=== PATIENT | female | born 1950 | race Caucasian/White ===

== ENCOUNTER 2018-02-17 20:32 | Inpatient (IN) | payer MEDICARE ==
[2018-02-17] MEDS ORDERED: Vancomycin(*) 1,500 MG in NS 0.9% 250 ML* 250 ML IVPB ONE (21:02)
[2018-02-17 21:40] LABS: Hematocrit 40 % (35-47); Hemoglobin 13.1 g/dl (12.0-16.0); Mean Corpuscular HGB Conc 33 g/dl (31-36); Mean Corpuscular Hemoglobin 29 pg (27-31); Mean Corpuscular Volume 88 fL (80-97); Mean Platelet Volume 9.6 um3 (7.4-10.4); Platelet Count 147 10^3/ul (150-450); Red Blood Count 4.49 10^6/ul (4.0-5.4); Red Cell Distribution Width 15 % (10.5-15); White Blood Count 21.2 10^3/ul (3.5-10.8)
[2018-02-17 21:55] LABS: EGFR Non-African American 78.5 (>60)
[2018-02-17 22:14] LABS: ABS Basophils 0 10^3/ul (0-0.2); ABS Eosinophils 0 10^3/ul (0-0.6); ABS Lymphocytes 0.4 10^3/ul (1.0-4.8); ABS Monocytes 0.5 10^3/ul (0-0.8); ABS Neutrophils 20.3 10^3/ul (1.5-7.7); ABS Nucleated RBC 0 10^3/ul; Eosinophil % 0 % (0-6); Nucleated Red Blood Cells % 0
--- NOTE | 2018-02-17 22:29 | ED ---
Dinesh Gastelum Sixian, scribed for Nathan Parham MD on 02/17/18 at 2103 . Complex/Multi-Sys Presentation - HPI Summary HPI Summary: This patient is a 68 year old MF BIBA to ED with a chief complaint of falling backwards since 1730 today. The patient rates the pain 4/10 in severity. Symptoms aggravated and alleviated by nothing. Patient reports fever, R hip and R knee arthritis, lumps on the legs. Patient denies hitting her head, LOC. The pt tripped over objects in the bathroom and her back hit a mop. She landed on her back. Pt also states she had erythema on her right leg since the Friday before . Pt states 3 weeks after this, she was diagnosed with cellulitis and was on 2 different antibiotics. Pt states it cleared up after that, but the redness has returned. - History Of Current Complaint Chief Complaint: EDExtremityLower Time Seen by Provider: 02/17/18 20:48 Hx Obtained From: Patient Onset/Duration: Sudden Onset Severity Currently: Moderate - 4/10 Aggravating Factor(s): nothing Alleviating Factor(s): nothing Associated Signs And Symptoms: Positive: Other - Patient reports fever, R hip and R knee arthritis, lumps on the legs. Patient denies hitting her head, LOC. - Allergies/Home Medications Allergies/Adverse Reactions: Allergies Allergy/AdvReac Type Severity Reaction Status Date / Time levofloxacin [From Levaquin] Allergy See Comment Verified 02/17/18 22:28 Home Medications: Home Medications Acetaminophen TAB* [Tylenol TAB*] 650 mg PO Q4H PRN 02/17/18 [History Confirmed 02/17/18] Albuterol HFA INHALER* [Ventolin HFA Inhaler*] 2 puff INH Q6H PRN 02/17/18 [ History Confirmed 02/17/18] Ascorbic Acid TAB* [Vitamin C TAB*] 500 mg PO DAILY 02/17/18 [History Confirmed 02/17/18] Aspirin EC TAB* [Ecotrin EC Low Dose 81 MG*] 81 mg PO DAILY 02/17/18 [History Confirmed 02/17/18] Azelastine 0.15% NASAL(NF) [Astepro 0.15% NASAL (NF)] 1 spray BOTH NARES DAILY 02/17/18 [History Confirmed 02/17/18] Calcium/Magnesium/Zinc [Calcium/Magnesium/Zinc] 1 tab PO DAILY 02/17/18 [ History Confirmed 02/17/18] Cholecalciferol TAB* [Vitamin D TAB*] 2,000 units PO DAILY 02/17/18 [History Confirmed 02/17/18] Fluocinonide 0.05% CREAM(NF) 1 applic TOPICAL BID 02/17/18 [History Confirmed ] Fluticasone NASAL SPRAY 50MCG* [Flonase NASAL SPRAY 50MCG*] 1 spray BOTH NARES DAILY 02/17/18 [History Confirmed 02/17/18] Furosemide TAB* [Lasix TAB*] 40 mg PO DAILY 02/17/18 [History Confirmed 02/17/18 ] Hydrochlorothiazide TAB* [Hydrodiuril TAB*] 25 mg PO DAILY 02/17/18 [History Confirmed 02/17/18] LoraTADine TAB(NF) [Claritin 10 MG TAB(NF)] 10 mg PO DAILY 02/17/18 [History Confirmed 02/17/18] Losartan TAB* [Cozaar TAB*] 50 mg PO DAILY 02/17/18 [History Confirmed 02/17/18] Mometasone 220 MCG MDI * [Asmanex 220 MCG MDI *] 2 puff INH DAILY 02/17/18 [ History Confirmed 02/17/18] Montelukast Sodium TAB* [Singulair TAB*] 10 mg PO DAILY 02/17/18 [History Confirmed 02/17/18] Omeprazole CAP* [Prilosec CAP* 20 MG] 40 mg PO QAM 02/17/18 [History Confirmed 02/17/18] Potassium Chlor TAB* [Klor Con ER TAB*] 10 meq PO DAILY 02/17/18 [History Confirmed 02/17/18] medroxyPROGESTERone TAB* [Provera TAB*] 10 mg PO BID 02/17/18 [History Confirmed 02/17/18] traMADol TAB* [Ultram*] 50 - 100 mg PO Q6HR PRN 02/17/18 [History Confirmed ] PMH/Surg Hx/FS Hx/Imm Hx Endocrine/Hematology History: Reports: Hx Diabetes - II Cardiovascular History: Reports: Hx Hypertension Respiratory History: Reports: Hx Asthma GI History: Reports: Hx Ulcer - gerd - Cancer History Hx Chemotherapy: No Hx Radiation Therapy: No - Surgical History Surgery Procedure, Year, and Place: umbilical hernia repair Infectious Disease History: No Infectious Disease History: Reports: Hx Shingles Denies: History Other Infectious Disease, Traveled Outside the [place] in Last 30 Days - Family History Known Family History: Positive: Unknown - pt is asleep - Social History Alcohol Use: Rare Substance Use Type: Reports: None Smoking Status (MU): Never Smoked Tobacco Review of Systems Positive: Fever Neurological: Negative - LOC, hitting her head All Other Systems Reviewed And Are Negative: Yes Physical Exam - Summary Physical Exam Summary: Appearance: Well-appearing, Well-nourished, lying in bed comfortably Skin: Warm, dry, no obvious rash Eyes: sclera anicteric, no conjunctiva pallor ENT: mucous membranes moist, pharynx appears normal Neck: Supple, nontender Respiratory: Clear to auscultation, no signs of respiratory distress Cardiovascular: Normal S1, S2. No murmurs. Normal distal pulses in tibial and radial bilaterally. Abdomen: Soft, nontender, normal active bowel sounds present Musculoskeletal: Normal, Strength/ROM Intact. Redness, warm, extending up to knee on R leg. Adenopathy in groin area Neurological: A&Ox3, awake and alert, mentation is normal, speech is fluent and appropriate Psychiatric: affect is normal, does not appear anxious or depressed Triage Information Reviewed: Yes Vital Signs On Initial Exam: Initial Vitals Temp Pulse Resp BP Pulse Ox 100.5 F 82 16 150/80 97 02/17/18 20:35 02/17/18 20:35 02/17/18 20:35 02/17/18 20:35 02/17/18 20:35 Vital Signs Reviewed: Yes Diagnostics - Vital Signs Vital Signs Temp Pulse Resp BP Pulse Ox 02/17/18 20:35 100.5 F 82 16 150/80 97 - Laboratory Lab Results: Lab Results 02/17/18 02/17/18 02/17/18 Range/Units 21:33 21:33 21:33 WBC 21.2 H (3.5-10.8) 10^3/ul RBC 4.49 (4.0-5.4) 10^6/ul Hgb 13.1 (12.0-16.0) g/dl Hct 40 (35-47) % MCV 88 (80-97) fL MCH 29 (27-31) pg MCHC 33 (31-36) g/dl RDW 15 (10.5-15) % Plt Count 147 L (150-450) 10^3/ul MPV 9.6 (7.4-10.4) um3 Neut % (Auto) 95.5 H (38-83) % Lymph % (Auto) 2.0 L (25-47) % [place] % (Auto) 2.3 (0-7) % Eos % (Auto) 0 (0-6) % Baso % (Auto) 0.2 (0-2) % Absolute Neuts (auto) 20.3 H (1.5-7.7) 10^3/ul Absolute Lymphs (auto) 0.4 L (1.0-4.8) 10^3/ul Absolute Monos (auto) 0.5 (0-0.8) 10^3/ul Absolute Eos (auto) 0 (0-0.6) 10^3/ul Absolute Basos (auto) 0 (0-0.2) 10^3/ul Absolute Nucleated RBC 0 10^3/ul Nucleated RBC % 0 Sodium 135 L (139-145) mmol/L Potassium 3.8 (3.5-5.0) mmol/L Chloride 101 (101-111) mmol/L Carbon Dioxide 27 (22-32) mmol/L Anion Gap 7 (2-11) mmol/L BUN 21 (6-24) mg/dL Creatinine 0.74 (0.51-0.95) mg/dL Est GFR ( Amer) 101.0 (>60) Est GFR (Non-Af Amer) 78.5 (>60) BUN/Creatinine Ratio 28.4 H (8-20) Glucose 156 H (70-100) mg/dL Lactic Acid 1.5 (0.5-2.0) mmol/L Calcium 9.0 (8.6-10.3) mg/dL Total Bilirubin 0.70 (0.2-1.0) mg/dL AST 12 L (13-39) U/L ALT 8 (7-52) U/L Alkaline Phosphatase 46 (34-104) U/L Total Protein 6.7 (6.4-8.9) g/dL Albumin 3.8 (3.2-5.2) g/dL Globulin 2.9 (2-4) g/dL Albumin/Globulin Ratio 1.3 (1-3) Result Diagrams: 02/17/18 21:33 02/17/18 21:33 Lab Statement: Any lab studies that have been ordered have been reviewed, and results considered in the medical decision making process. Complex Multi-Symp Course/Dx - Diagnoses Differential Diagnoses/HQI/PQRI: Sepsis Provider Diagnoses: Cellulitis of right leg, Fall against object Is Visit Related: No - Physician Notifications Discussed Care Of Patient With: Nelida Escobdeo Time Discussed With Above Provider: 22:20 Instructed by Provider To: Admit As Inpatient Discharge - Sign-Out/Discharge Documenting (check all that apply): Discharge/Admit/Transfer - Discharge Plan Condition: Guarded Disposition: ADMITTED TO [facility] Referrals: Dave Reed MD [Primary Care Provider] - Additional Instructions: RETURN TO THE EMERGENCY DEPARTMENT FOR CHANGING OR WORSENING SYMPTOMS. - Billing Disposition and Condition Condition: GUARDED Disposition: [facility]P-[facility] The documentation as recorded by the Dinesh dc Sixian accurately reflects the service I personally performed and the decisions made by Prasad jones Richard, MD.
[2018-02-17] MEDS ORDERED: traMADol TAB* 50 MG PO PRN (22:54)
[2018-02-17] MEDS ORDERED: NS 0.9% 1000 ML* 1,000 ML IV SCH (23:00)
[2018-02-17] MEDS ORDERED: Losartan TAB* 25 MG PO ONE (23:03)
[2018-02-17] MEDS ORDERED: Dextrose 50% Syringe 50 ML* 25 GM/50 ML SYRINGE IV PUSH PRN (23:10)
[2018-02-18] MEDS: traMADol TAB* 50 MG PO PRN ×2 (01:27→21:42)
[2018-02-18] MEDS: Cetirizine* 10 MG TAB PO SCH ×2 (01:27→21:41)
[2018-02-18] MEDS: Montelukast Sodium TAB* 10 MG PO SCH ×2 (01:27→21:42)
[2018-02-18] MEDS: Aspirin EC TAB* 81 MG TAB.EC PO SCH ×2 (01:27→21:42)
[2018-02-18] MEDS: Acetaminophen TAB* 325 MG PO PRN ×3 (01:28→21:52)
[2018-02-18] MEDS: cefTRIAXone(*) 2 GM in NS 0.9% 100 ML* 100 ML IVPB SCH ×2 (01:29→23:12)
[2018-02-18] MEDS: Fluticasone NASAL SPRAY 50MCG* 16 gm SPRAY BTL BOTH NARES SCH ×2 (02:05→21:53)
--- NOTE | 2018-02-18 03:07 | HP ---
CC: Dr. Reed* HISTORY AND PHYSICAL: DATE OF ADMISSION: 02/17/18 PRIMARY CARE PROVIDER: Dr. Reed. CHIEF COMPLAINT: Fall and right lower extremity cellulitis. HISTORY OF PRESENT ILLNESS: Ms. Bowers is a 68-year-old super morbidly obese middle-aged female with a history of hypertension, type 2 diabetes, and lower extremity lymphedema, who presents to the emergency room after sustaining a fall on the day of admission. The patient states that today was a bad day in terms of her ambulation. She states that she had severe osteoarthritis of her right hip and knee. She states some days her mobility is better than others and today happened to be a bad one. The patient walked to the bathroom and was trying to turn around, was having a difficult time doing so. An aide that had cleaned for her left her mop and water bucket in a different spot than where it was supposed to be and she tripped over this. States that she got tangled and fell to the floor. She was unable to get up on her own. She ultimately called EMS and was brought to the emergency room for evaluation. EMS noted that the patient's right lower extremity was markedly erythematous and hot. The patient states she cannot see anything out of her right eye, but generally does not see her lower extremities due to her obesity. She states that she may have had some fevers and chills over the last few days, but she is not completely sure. She states she has chronic pain in the right lower extremity, but the pain has not been any worse than usual. PAST MEDICAL HISTORY: 1. Hypertension. 2. Morbid obesity. 3. Diabetes. 4. Allergic rhinitis. 5. Asthma. 6. Osteoarthritis. 7. Lymphedema, utilized a compression pump. PAST SURGICAL HISTORY: Umbilical hernia repair. MEDICATIONS: 1. Tramadol 50 to 100 mg p.o. q.6 hours p.r.n. pain. 2. Fluocinonide cream apply topically twice daily. 3. Tylenol 650 mg p.o. q.4 hours p.r.n. pain. 4. Potassium chloride 10 mEq p.o. daily. 5. Vitamin D 2000 units p.o. daily. 6. Aspirin 81 mg p.o. daily. 7. Vitamin C 500 mg p.o. daily. 8. Provera 10 mg p.o. b.i.d. 9. Loratadine 10 mg p.o. daily. 10. Calcium, magnesium, zinc 1 tab p.o. daily. 11. Omeprazole 40 mg p.o. daily. 12. Asmanex 2 puffs inhaled daily. 13. Albuterol 2 puffs inhaled q.6 hours p.r.n. shortness of breath. 14. Flonase 1 squirt to both nostrils daily. 15. Astepro 1 spray to both nostrils daily. 16. Singulair 10 mg p.o. daily. 17. Losartan 50 mg p.o. daily. 18. Hydrochlorothiazide 25 mg p.o. daily. 19. Lasix 40 mg p.o. daily. ALLERGIES: LEVAQUIN, which caused Achilles tendonitis. FAMILY HISTORY: Mom of ovarian cancer. She also had coronary disease. Dad of an MS. SOCIAL HISTORY: The patient is a lifelong nonsmoker. She drinks alcohol rarely. She is a retired teacher. She is not . She has no children. She indicates that her sister, Sasha, phone number [phone], is her healthcare proxy. REVIEW OF SYSTEMS: A complete 11-system review of systems is obtained. Pertinent positives and negatives are as per HPI and otherwise negative. PHYSICAL EXAMINATION GENERAL: The patient is a well-developed, super morbidly obese middle-aged female, seen lying flat on the stretcher, in no acute distress. VITAL SIGNS: Blood pressure 174/80, pulse 86, respirations 21, temperature 100.5, O2 sat 98% on room air. HEENT: Pupils are equal and round. Extraocular muscles are intact. Oropharynx is clear. Oral mucosa is moist. NECK: There is no submandibular, cervical, or subclavicular adenopathy. Thyroid is not enlarged. No thyroid nodules are noted. PULMONARY: Lungs are clear to auscultation anteriorly bilaterally. CARDIAC: Normal S1, S2. Regular rate and rhythm. I do not appreciate any murmurs. There is significant lower extremity edema/lymphedema bilaterally. ABDOMEN: Bowel sounds are present. Abdomen is soft, obese, nontender, nondistended. MUSCULOSKELETAL: The patient moves upper extremities symmetrically. She has difficult time moving her lower extremities. SKIN: Warm and dry. There are no rashes. The patient is hirsute. The right lower extremity is beefy red over the lower leg and tracking up over the anterior and medial thigh, this is very hot to touch. NEUROLOGIC: Cranial nerves II through XII are grossly intact. Sensation is intact to light touch throughout. Strength is 5/5 and symmetric in both upper and lower extremities bilaterally. PSYCH: The patient is alert. She is oriented to x3. Affect appears appropriate. LABORATORY DATA: WBC 21.2, hemoglobin 13.1, hematocrit 40, platelets 147. Sodium 135, potassium 3.8, chloride 101, CO2 27, BUN 21, creatinine 0.74, glucose 156, lactic acid 1.5, calcium 9.0, bilirubin 0.7, AST 12, ALT 8, alk phos 46, albumin 3.8. ASSESSMENT AND PLAN: Ms. Bowers is a 68-year-old super morbidly obese female who has a history of hypertension and type 2 diabetes as well as chronic lower extremity lymphedema, who presents to the emergency room with complaints of fall and inability to get up and was also found to have a right lower extremity cellulitis. 1. Fall. The patient will need physical therapy ordered. I questioned whether or not she will be able to manage at home. She may require subacute rehab. 2. Right lower extremity cellulitis with associated sepsis. The patient is septic based on sepsis 2 criteria with fever and leukocytosis. The patient had 2 L of normal saline bolused in the emergency room. I will not continue bolusing fluid as she would receive several liters and already has issues with chronic lower extremity edema. She will continue on normal saline at 100 mL/ hour after finishing the boluses in the emergency room. Her vital signs will be monitored. The patient received vancomycin in the emergency room; however, she does not have any risk factors for MRSA. The patient will be changed over to ceftriaxone 2 g IV daily. I have chosen 2 g dose given her weight. I suspect she will need a few days of IV antibiotics and could be converted over to oral. 3. Hypertension. The patient's blood pressure is still quite elevated. She states typically it runs in the 130s systolically. At this point, I will add losartan 25 mg p.o. q.h.s. We will monitor her blood pressure. This will be in addition to her usual dose of losartan 50 mg in the morning. I am going to hold her hydrochlorothiazide for now, but this can likely be resumed prior to discharge. 4. Diabetes. The patient is not on any medications for this. Hemoglobin A1c has been ordered and the results of this are pending. She will have a lispro sliding scale. 5. Osteoarthritis. We will continue p.r.n. Tylenol and tramadol. 6. DVT prophylaxis. According to the Adult Thrombosis Prophylaxis Risk Factor Assessment Guide, the patient has a total risk factor score of 5, making her the highest risk. She will be placed on heparin 5000 units subcutaneous q.8 hours. 7. Code status is full. TIME SPENT: 65 minutes were spent admitting this patient. [id number]/[facility] #: [id number] FELIZ
[2018-02-18] MEDS: Heparin VIAL(*) 5000 UNITS/ML VIAL (FIVE THOUSAND) SUBCUT SCH ×3 (05:05→21:42)
[2018-02-18 05:40] LABS: ABS Basophils 0 10^3/ul (0-0.2); ABS Eosinophils 0 10^3/ul (0-0.6); ABS Lymphocytes 1.1 10^3/ul (1.0-4.8); ABS Monocytes 0.5 10^3/ul (0-0.8); ABS Neutrophils 18.7 10^3/ul (1.5-7.7); ABS Nucleated RBC 0 10^3/ul; Eosinophil % 0 % (0-6); Hematocrit 36 % (35-47); Hemoglobin 12.2 g/dl (12.0-16.0); Lymphocyte % 5.4 % (25-47); Mean Corpuscular HGB Conc 34 g/dl (31-36); Mean Corpuscular Hemoglobin 30 pg (27-31); Mean Corpuscular Volume 87 fL (80-97); Mean Platelet Volume 9.1 um3 (7.4-10.4); Nucleated Red Blood Cells % 0; Platelet Count 114 10^3/ul (150-450); Red Blood Count 4.08 10^6/ul (4.0-5.4); Red Cell Distribution Width 14 % (10.5-15); White Blood Count 20.3 10^3/ul (3.5-10.8)
[2018-02-18] MEDS: Mometasone 220 MCG MDI INH SCH (08:02)
[2018-02-18] MEDS: Omeprazole CAP* 20 MG PO SCH (08:56)
[2018-02-18] MEDS: Insulin LISPRO* 1 UNITS UNIT SUBCUT SCH ×4 (08:56→21:47)
[2018-02-18] MEDS ORDERED: Aspirin EC TAB* 81 MG TAB.EC PO SCH (09:00)
[2018-02-18] MEDS ORDERED: Fluticasone NASAL SPRAY 50MCG* 16 gm SPRAY BTL BOTH NARES SCH (09:00)
[2018-02-18] MEDS ORDERED: Montelukast Sodium TAB* 10 MG PO SCH (09:00)
[2018-02-18] MEDS: Potassium Chlor TAB* 10 MEQ TAB.ER PO SCH (09:50)
[2018-02-18] MEDS: medroxyPROGESTERone TAB* 10 MG PO SCH ×2 (09:51→21:41)
[2018-02-18] MEDS: Cholecalciferol TAB* 1000 UNITS PO SCH (09:51)
[2018-02-18] MEDS: Ascorbic Acid TAB* 500 MG PO SCH (09:51)
[2018-02-18] MEDS: Losartan TAB* 25 MG PO SCH ×2 (09:51→21:42)
[2018-02-18] MEDS: Furosemide TAB* 40 MG PO SCH (09:51)
--- NOTE | 2018-02-18 14:40 | PN ---
Subjective Date of Service: 02/18/18 Interval History: Patient reports she feels a little better today. She states she was feeling well up until yesterday when she felt she had generalized fatigue then fell. She was unaware if the redness of her right leg. She reports possible fevers the last few days but states her house is "so hot" she wouldnt be able to tell. Denies any fevers/chills since admission. No SOB/CP. No N/V/D. Reports good appetite. She reports she ambulates with a walker. Objective Active Medications: Acetaminophen (Tylenol Tab*) 650 mg PO Q4H PRN PRN Reason: PAIN Last Admin: 02/18/18 09:49 Dose: 650 mg Albuterol (Ventolin Hfa Inhaler*) 2 puff INH Q6H PRN PRN Reason: SOB/WHEEZING Ascorbic Acid (Vitamin C Tab*) 500 mg PO DAILY [facility] Last Admin: 02/18/18 09:51 Dose: 500 mg Aspirin (Aspirin Ec Tab*) 81 mg PO BEDTIME [facility] Last Admin: 02/18/18 01:27 Dose: 81 mg Cetirizine HCl (Zyrtec*) 10 mg PO BEDTIME [facility] Last Admin: 02/18/18 01:27 Dose: 10 mg Cholecalciferol (Vitamin D Tab*) 2,000 units PO DAILY [facility] Last Admin: 02/18/18 09:51 Dose: 2,000 units Dextrose (D50w Syringe 50 Ml*) 12.5 gm IV PUSH .FOR FS < 60 - SS PRN PRN Reason: FS < 60 Fluticasone Propionate (Flonase Nasal [place] 50mcg*) 1 spray BOTH NARES BEDTIME [facility] Last Admin: 02/18/18 02:05 Dose: 1 spray Furosemide (Lasix Tab*) 40 mg PO DAILY [facility] Last Admin: 02/18/18 09:51 Dose: 40 mg Heparin Sodium (Porcine) (Heparin Vial(*)) 5,000 units SUBCUT Q8HR [facility] Last Admin: 02/18/18 13:27 Dose: 5,000 units Ceftriaxone Sodium 2 gm/ (Sodium Chloride) 100 mls @ 200 mls/hr IVPB Q24H [facility] Last Admin: 02/18/18 01:29 Dose: 200 mls/hr Ibuprofen (Motrin Tab*) 400 mg PO Q6H PRN PRN Reason: PAIN - MILD TO MODERATE Insulin Human Lispro (Humalog*) 0 units SUBCUT ACHS [facility] PRN Reason: Protocol Last Admin: 02/18/18 12:55 Dose: 3 units Losartan Potassium (Cozaar Tab*) 50 mg PO DAILY [facility] Last Admin: 02/18/18 09:51 Dose: 50 mg Losartan Potassium (Cozaar Tab*) 25 mg PO BEDTIME [facility] Medroxyprogesterone Acetate (Provera Tab*) 10 mg PO BID [facility] Last Admin: 02/18/18 09:51 Dose: 10 mg Mometasone Furoate (Asmanex 220 Mcg Mdi *) 2 puff INH DAILY [facility] PRN Reason: Protocol Last Admin: 02/18/18 08:02 Dose: 2 puff Montelukast Sodium (Singulair Tab*) 10 mg PO BEDTIME [facility] Last Admin: 02/18/18 01:27 Dose: 10 mg Omeprazole (Prilosec Cap*) 40 mg PO QAM [facility] Last Admin: 02/18/18 08:56 Dose: 40 mg Potassium Chloride (Klor Con Er Tab*) 10 meq PO DAILY [facility] Last Admin: 02/18/18 09:50 Dose: 10 meq Tramadol HCl (Ultram*) 100 mg PO Q6HR PRN PRN Reason: PAIN Last Admin: 02/18/18 01:27 Dose: 100 mg Vital Signs - 8 hr 02/18/18 02/18/18 02/18/18 07:50 10:54 10:55 Temperature 98.5 F Pulse Rate 75 Respiratory 22 20 Rate Blood Pressure 143/45 (mmHg) O2 Sat by Pulse 98 98 Oximetry 02/18/18 11:15 Temperature 99.2 F Pulse Rate 73 Respiratory 20 Rate Blood Pressure 153/68 (mmHg) O2 Sat by Pulse 95 Oximetry Oxygen Devices in Use Now: None Appearance: morbidly obese female sitting up in bed A+O x3 in NAD Eyes: No Scleral Icterus, PERRLA Ears/Nose/Mouth/Throat: NL Teeth, Lips, Gums, Mucous Membranes Moist Neck: NL Appearance and Movements; NL JVP Respiratory: Symmetrical Chest Expansion and Respiratory Effort, Clear to Auscultation Cardiovascular: NL Sounds; No Murmurs; No JVD, RRR Abdominal: - - obese, soft, unable to ausculate BS d/t obesity Skin: - - bilateral LE lymphedema. Right Lower extremity has diffuse generalized erythema that spreads to inner thigh Neurological: Alert and Oriented x 3, NL Sensation Lines/Tubes/Other Access: Clean, Dry and Intact Peripheral IV Nutrition: Taking PO's Result Diagrams: 02/18/18 05:25 02/17/18 21:33 Additional Lab and Data: Lab Results 02/17/18 02/17/18 02/17/18 Range/Units 21:33 21:33 21:33 WBC 21.2 H (3.5-10.8) 10^3/ul RBC 4.49 (4.0-5.4) 10^6/ul Hgb 13.1 (12.0-16.0) g/dl Hct 40 (35-47) % MCV 88 (80-97) fL MCH 29 (27-31) pg MCHC 33 (31-36) g/dl RDW 15 (10.5-15) % Plt Count 147 L (150-450) 10^3/ul MPV 9.6 (7.4-10.4) um3 Neut % (Auto) 95.5 H (38-83) % Lymph % (Auto) 2.0 L (25-47) % [place] % (Auto) 2.3 (0-7) % Eos % (Auto) 0 (0-6) % Baso % (Auto) 0.2 (0-2) % Absolute Neuts (auto) 20.3 H (1.5-7.7) 10^3/ul Absolute Lymphs (auto) 0.4 L (1.0-4.8) 10^3/ul Absolute Monos (auto) 0.5 (0-0.8) 10^3/ul Absolute Eos (auto) 0 (0-0.6) 10^3/ul Absolute Basos (auto) 0 (0-0.2) 10^3/ul Absolute Nucleated RBC 0 10^3/ul Nucleated RBC % 0 Sodium 135 L (139-145) mmol/L Potassium 3.8 (3.5-5.0) mmol/L Chloride 101 (101-111) mmol/L Carbon Dioxide 27 (22-32) mmol/L Anion Gap 7 (2-11) mmol/L BUN 21 (6-24) mg/dL Creatinine 0.74 (0.51-0.95) mg/dL Est GFR ( Amer) 101.0 (>60) Est GFR (Non-Af Amer) 78.5 (>60) BUN/Creatinine Ratio 28.4 H (8-20) Glucose 156 H (70-100) mg/dL Lactic Acid 1.5 (0.5-2.0) mmol/L Calcium 9.0 (8.6-10.3) mg/dL Total Bilirubin 0.70 (0.2-1.0) mg/dL AST 12 L (13-39) U/L ALT 8 (7-52) U/L Alkaline Phosphatase 46 (34-104) U/L Total Protein 6.7 (6.4-8.9) g/dL Albumin 3.8 (3.2-5.2) g/dL Globulin 2.9 (2-4) g/dL Albumin/Globulin Ratio 1.3 (1-3) Assess/Plan/Problems-Billing Assessment: 68 yo female with a PMH of morbid obesity, lyphedema, asthma, hypertension, diabetes who presented to the emergency room after she had a fall at home and couldn't get up, found to have a right lower extremity cellulitis meeting sepsis criteria - Patient Problems (1) Sepsis due to cellulitis Comment: - Sepsis Resolving. Afebrile. Leukocytosis about the same. - Met sepsis criteria with leukocytosis and fever. She received 2L NS bolus in ER and given a dose on Vanco. Continue Ceftriaxone only. - Check Labs in am. - Blood cx pending (2) Fall Comment: - No injuries noted - PT/OT ordered (3) HTN (hypertension) Comment: - continue home dose lasix and losartan (4) Diabetes 1.5, managed as type 2 Comment: - FSBG with lispro SS - may be able to DC this if FSBG continues to be well controlled d/t HbA1C of 5.2% (5) DVT prophylaxis Comment: HSQ (6) Morbid obesity with BMI of 60.0-69.9, adult Comment: - support bariatric needs Status and Disposition: inpatient with fall, sepsis and cellulitis. PT/OT eval pending
[2018-02-18] MEDS ORDERED: LoraTADine TAB(NF) 10 MG TAB (AUTOSUB to CETIRIZINE) PO SCH (21:00)
[2018-02-19] MEDS: Albuterol HFA INHALER* 8 gm MDI INH PRN (05:25)
[2018-02-19] MEDS: Heparin VIAL(*) 5000 UNITS/ML VIAL (FIVE THOUSAND) SUBCUT SCH ×3 (05:26→22:48)
[2018-02-19 06:26] LABS: Hematocrit 35 % (35-47); Hemoglobin 11.9 g/dl (12.0-16.0); Mean Corpuscular HGB Conc 34 g/dl (31-36); Mean Corpuscular Hemoglobin 30 pg (27-31); Mean Corpuscular Volume 87 fL (80-97); Red Blood Count 4.03 10^6/ul (4.0-5.4); Red Cell Distribution Width 14 % (10.5-15); White Blood Count 10.8 10^3/ul (3.5-10.8)
[2018-02-19 06:35] LABS: EGFR Non-African American 108.3 (>60)
[2018-02-19 07:04] LABS: ABS Basophils 0.1 10^3/ul (0-0.2); ABS Eosinophils 0.1 10^3/ul (0-0.6); ABS Lymphocytes 1.2 10^3/ul (1.0-4.8); ABS Monocytes 0.6 10^3/ul (0-0.8); ABS Neutrophils 8.9 10^3/ul (1.5-7.7); ABS Nucleated RBC 0 10^3/ul; Eosinophil % 0.7 % (0-6); Lymphocyte % 11.4 % (25-47); Mean Platelet Volume 9.2 um3 (7.4-10.4); Nucleated Red Blood Cells % 0; Platelet Count 95 10^3/ul (150-450)
[2018-02-19] MEDS: Omeprazole CAP* 20 MG PO SCH (08:02)
[2018-02-19] MEDS: Mometasone 220 MCG MDI INH SCH ×2 (08:36→21:17)
[2018-02-19] MEDS: Insulin LISPRO* 1 UNITS UNIT SUBCUT SCH ×4 (09:06→21:25)
[2018-02-19] MEDS: Furosemide TAB* 40 MG PO SCH (10:59)
[2018-02-19] MEDS: Losartan TAB* 25 MG PO SCH ×2 (10:59→21:15)
[2018-02-19] MEDS: Potassium Chlor TAB* 10 MEQ TAB.ER PO SCH (10:59)
[2018-02-19] MEDS: Ascorbic Acid TAB* 500 MG PO SCH (10:59)
[2018-02-19] MEDS: Cholecalciferol TAB* 1000 UNITS PO SCH (10:59)
[2018-02-19] MEDS: medroxyPROGESTERone TAB* 10 MG PO SCH ×2 (11:00→21:14)
[2018-02-19] MEDS: Ibuprofen TAB* 400 MG PO PRN (11:08)
--- NOTE | 2018-02-19 11:40 | PN ---
Subjective Date of Service: 02/19/18 Interval History: Patient seen and examined. No acute overnight events. Had PT eval, states it was difficult for her to get up (2 person max assist). Aware she needs rehab. Denies fever or chills, no SOB, no chest pain, no fatigue or headache. Tolerating PO. Objective Active Medications: Acetaminophen (Tylenol Tab*) 650 mg PO Q4H PRN PRN Reason: PAIN Last Admin: 02/18/18 21:52 Dose: 650 mg Albuterol (Ventolin Hfa Inhaler*) 2 puff INH Q6H PRN PRN Reason: SOB/WHEEZING Last Admin: 02/19/18 05:25 Dose: 2 puff Ascorbic Acid (Vitamin C Tab*) 500 mg PO DAILY [facility] Last Admin: 02/19/18 10:59 Dose: 500 mg Aspirin (Aspirin Ec Tab*) 81 mg PO BEDTIME [facility] Last Admin: 02/18/18 21:42 Dose: 81 mg Cetirizine HCl (Zyrtec*) 10 mg PO BEDTIME [facility] Last Admin: 02/18/18 21:41 Dose: 10 mg Cholecalciferol (Vitamin D Tab*) 2,000 units PO DAILY [facility] Last Admin: 02/19/18 10:59 Dose: 2,000 units Dextrose (D50w Syringe 50 Ml*) 12.5 gm IV PUSH .FOR FS < 60 - SS PRN PRN Reason: FS < 60 Fluticasone Propionate (Flonase Nasal [place] 50mcg*) 1 spray BOTH NARES BEDTIME [facility] Last Admin: 02/18/18 21:53 Dose: 1 spray Furosemide (Lasix Tab*) 40 mg PO DAILY [facility] Last Admin: 02/19/18 10:59 Dose: 40 mg Heparin Sodium (Porcine) (Heparin Vial(*)) 5,000 units SUBCUT Q8HR [facility] Last Admin: 02/19/18 05:26 Dose: 5,000 units Ceftriaxone Sodium 2 gm/ (Sodium Chloride) 100 mls @ 200 mls/hr IVPB Q24H [facility] Last Admin: 02/18/18 23:12 Dose: 200 mls/hr Ibuprofen (Motrin Tab*) 400 mg PO Q6H PRN PRN Reason: PAIN - MILD TO MODERATE Last Admin: 02/19/18 11:08 Dose: 400 mg Insulin Human Lispro (Humalog*) 0 units SUBCUT ACHS [facility] PRN Reason: Protocol Last Admin: 02/19/18 09:06 Dose: Not Given Latanoprost (Xalatan 0.005%*) 1 drop RIGHT EYE BEDTIME [facility] Losartan Potassium (Cozaar Tab*) 50 mg PO DAILY [facility] Last Admin: 02/19/18 10:59 Dose: 50 mg Losartan Potassium (Cozaar Tab*) 25 mg PO BEDTIME [facility] Last Admin: 02/18/18 21:42 Dose: 25 mg Medroxyprogesterone Acetate (Provera Tab*) 10 mg PO BID [facility] Last Admin: 02/19/18 11:00 Dose: 10 mg Mometasone Furoate (Asmanex 220 Mcg Mdi *) 2 puff INH BEDTIME [facility] PRN Reason: Protocol Montelukast Sodium (Singulair Tab*) 10 mg PO BEDTIME [facility] Last Admin: 02/18/18 21:42 Dose: 10 mg Omeprazole (Prilosec Cap*) 40 mg PO QAM [facility] Last Admin: 02/19/18 08:02 Dose: 40 mg Potassium Chloride (Klor Con Er Tab*) 10 meq PO DAILY [facility] Last Admin: 02/19/18 10:59 Dose: 10 meq Tramadol HCl (Ultram*) 100 mg PO Q6HR PRN PRN Reason: PAIN Last Admin: 02/18/18 21:42 Dose: 100 mg Vital Signs - 8 hr 02/19/18 02/19/18 07:41 08:17 Temperature 99.1 F Pulse Rate 65 Respiratory 18 18 Rate Blood Pressure 159/66 (mmHg) O2 Sat by Pulse 98 98 Oximetry Oxygen Devices in Use Now: None Appearance: Alert, NAD Eyes: PERRLA Ears/Nose/Mouth/Throat: Mucous Membranes Moist Neck: NL Appearance and Movements; NL JVP, Trachea Midline Respiratory: Symmetrical Chest Expansion and Respiratory Effort, Clear to Auscultation Cardiovascular: NL Sounds; No Murmurs; No JVD, RRR Abdominal: NL Sounds; No Tenderness; No Distention Extremities: No Clubbing, Cyanosis, - - RLE with significant edema, erythema and warmth Skin: - - portions of LLE appear to be blistered but not open with no exudate Neurological: Alert and Oriented x 3, - - weak LE Nutrition: Taking PO's Result Diagrams: 02/19/18 06:10 02/19/18 06:10 Additional Lab and Data: Lab Results 02/17/18 02/17/18 02/17/18 Range/Units 21:33 21:33 21:33 WBC 21.2 H (3.5-10.8) 10^3/ul RBC 4.49 (4.0-5.4) 10^6/ul Hgb 13.1 (12.0-16.0) g/dl Hct 40 (35-47) % MCV 88 (80-97) fL MCH 29 (27-31) pg MCHC 33 (31-36) g/dl RDW 15 (10.5-15) % Plt Count 147 L (150-450) 10^3/ul MPV 9.6 (7.4-10.4) um3 Neut % (Auto) 95.5 H (38-83) % Lymph % (Auto) 2.0 L (25-47) % [place] % (Auto) 2.3 (0-7) % Eos % (Auto) 0 (0-6) % Baso % (Auto) 0.2 (0-2) % Absolute Neuts (auto) 20.3 H (1.5-7.7) 10^3/ul Absolute Lymphs (auto) 0.4 L (1.0-4.8) 10^3/ul Absolute Monos (auto) 0.5 (0-0.8) 10^3/ul Absolute Eos (auto) 0 (0-0.6) 10^3/ul Absolute Basos (auto) 0 (0-0.2) 10^3/ul Absolute Nucleated RBC 0 10^3/ul Nucleated RBC % 0 Sodium 135 L (139-145) mmol/L Potassium 3.8 (3.5-5.0) mmol/L Chloride 101 (101-111) mmol/L Carbon Dioxide 27 (22-32) mmol/L Anion Gap 7 (2-11) mmol/L BUN 21 (6-24) mg/dL Creatinine 0.74 (0.51-0.95) mg/dL Est GFR ( Amer) 101.0 (>60) Est GFR (Non-Af Amer) 78.5 (>60) BUN/Creatinine Ratio 28.4 H (8-20) Glucose 156 H (70-100) mg/dL Lactic Acid 1.5 (0.5-2.0) mmol/L Calcium 9.0 (8.6-10.3) mg/dL Total Bilirubin 0.70 (0.2-1.0) mg/dL AST 12 L (13-39) U/L ALT 8 (7-52) U/L Alkaline Phosphatase 46 (34-104) U/L Total Protein 6.7 (6.4-8.9) g/dL Albumin 3.8 (3.2-5.2) g/dL Globulin 2.9 (2-4) g/dL Albumin/Globulin Ratio 1.3 (1-3) Assess/Plan/Problems-Billing Assessment: This is a 68 yo female with a PMH of morbid obesity, lymphedema, asthma, hypertension, diabetes who presented to the emergency room after she had a fall at home and couldn't get up, found to have a right lower extremity cellulitis meeting sepsis criteria, currently resolving. - Patient Problems (1) Sepsis due to cellulitis Code(s): L03.90 - CELLULITIS, UNSPECIFIED; A41.9 - SEPSIS, UNSPECIFIED ORGANISM SNOMED Code(s): 18816958 Comment: - Resolving, leukocytosis improving - s/p 2L bolus and 1 gram vanco in ER - Continue Continue Ceftriaxone daily - BP and HR stable, afebrile today - Blood cx pending (2) Diabetes 1.5, managed as type 2 Code(s): E10.9 - TYPE 1 DIABETES MELLITUS WITHOUT COMPLICATIONS SNOMED Code(s) : 265835383 Comment: - FSBG with lispro SS - may be able to DC this if FSBG continues to be well controlled d/t HbA1C of 5.2% (3) Fall Comment: - 3 person assist with PT, KEREN recommended (4) HTN (hypertension) Code(s): I10 - ESSENTIAL (PRIMARY) HYPERTENSION SNOMED Code(s): 00372906 Comment: - Stable on lasix and losartan (5) Morbid obesity with BMI of 60.0-69.9, adult Code(s): E66.01 - MORBID (SEVERE) OBESITY DUE TO EXCESS CALORIES; Z68.44 - BODY MASS INDEX (BMI) 60.0-69.9, ADULT SNOMED Code(s): 893700531 Comment: - support bariatric needs, i.e., appropriate rehab facility at [place] - Nutrition consult (6) DVT prophylaxis Code(s): XUE3223 - SNOMED Code(s): 278913175 Comment: - HSQ Status and Disposition: Remain inpatient on IV atbx and DC to rehab when stable
[2018-02-19] MEDS ORDERED: Potassium Chlor TAB* 20 MEQ TAB.ER PO ONE (18:33)
[2018-02-19] MEDS: Cetirizine* 10 MG TAB PO SCH (21:14)
[2018-02-19] MEDS: Acetaminophen TAB* 325 MG PO PRN (21:15)
[2018-02-19] MEDS: Montelukast Sodium TAB* 10 MG PO SCH (21:15)
[2018-02-19] MEDS: Aspirin EC TAB* 81 MG TAB.EC PO SCH (21:15)
[2018-02-19] MEDS: traMADol TAB* 50 MG PO PRN (21:16)
[2018-02-19] MEDS: Fluticasone NASAL SPRAY 50MCG* 16 gm SPRAY BTL BOTH NARES SCH (21:20)
[2018-02-19] MEDS: Latanoprost 0.005%* 2.5 ml BTL RIGHT EYE SCH (21:20)
[2018-02-19] MEDS: cefTRIAXone(*) 2 GM in NS 0.9% 100 ML* 100 ML IVPB SCH (22:48)
[2018-02-20] MEDS: Heparin VIAL(*) 5000 UNITS/ML VIAL (FIVE THOUSAND) SUBCUT SCH ×3 (05:18→22:19)
[2018-02-20] MEDS: Omeprazole CAP* 20 MG PO SCH (08:18)
[2018-02-20] MEDS ORDERED: Pneumococcal *Vac Polyvalent 0.5 ML VIAL IM ONE (09:00)
[2018-02-20] MEDS: Insulin LISPRO* 1 UNITS UNIT SUBCUT SCH ×4 (09:45→22:20)
[2018-02-20] MEDS: Losartan TAB* 25 MG PO SCH ×2 (09:45→22:19)
[2018-02-20] MEDS: medroxyPROGESTERone TAB* 10 MG PO SCH ×2 (09:45→22:15)
[2018-02-20] MEDS: Furosemide TAB* 40 MG PO SCH (09:46)
[2018-02-20] MEDS: Cholecalciferol TAB* 1000 UNITS PO SCH (09:46)
[2018-02-20] MEDS: Ascorbic Acid TAB* 500 MG PO SCH (09:46)
[2018-02-20] MEDS: Ibuprofen TAB* 400 MG PO PRN (09:46)
[2018-02-20] MEDS: Potassium Chlor TAB* 10 MEQ TAB.ER PO SCH (09:47)
[2018-02-20] MEDS: Albuterol HFA INHALER* 8 gm MDI INH PRN ×2 (10:36→20:09)
--- NOTE | 2018-02-20 10:54 | PN ---
Subjective Date of Service: 02/20/18 Interval History: Patient seen and examined. States no fever or chills, however pain in RLE is increasing and patient is still having difficulty bearing weight. denies SOB, no chest pain, no n/v. Had normal BM today. Objective Active Medications: Acetaminophen (Tylenol Tab*) 650 mg PO Q4H PRN PRN Reason: PAIN Last Admin: 02/19/18 21:15 Dose: 650 mg Albuterol (Ventolin Hfa Inhaler*) 2 puff INH Q6H PRN PRN Reason: SOB/WHEEZING Last Admin: 02/20/18 10:36 Dose: 2 puff Ascorbic Acid (Vitamin C Tab*) 500 mg PO DAILY [facility] Last Admin: 02/20/18 09:46 Dose: 500 mg Aspirin (Aspirin Ec Tab*) 81 mg PO BEDTIME [facility] Last Admin: 02/19/18 21:15 Dose: 81 mg Cetirizine HCl (Zyrtec*) 10 mg PO BEDTIME [facility] Last Admin: 02/19/18 21:14 Dose: 10 mg Cholecalciferol (Vitamin D Tab*) 2,000 units PO DAILY [facility] Last Admin: 02/20/18 09:46 Dose: 2,000 units Dextrose (D50w Syringe 50 Ml*) 12.5 gm IV PUSH .FOR FS < 60 - SS PRN PRN Reason: FS < 60 Fluticasone Propionate (Flonase Nasal [place] 50mcg*) 1 spray BOTH NARES BEDTIME [facility] Last Admin: 02/19/18 21:20 Dose: 1 spray Furosemide (Lasix Tab*) 40 mg PO DAILY [facility] Last Admin: 02/20/18 09:46 Dose: 40 mg Heparin Sodium (Porcine) (Heparin Vial(*)) 5,000 units SUBCUT Q8HR [facility] Last Admin: 02/20/18 05:18 Dose: 5,000 units Piperacillin Sod/Tazobactam (Sod 3.375 gm/ Sodium Chloride) 100 mls @ 200 mls/ hr IVPB ONCE ONE Stop: 02/20/18 11:29 Vancomycin HCl 2,000 mg/ (Sodium Chloride) 500 mls @ 166.667 mls/hr IVPB ONCE ONE PRN Reason: Protocol Stop: 02/20/18 14:29 Ibuprofen (Motrin Tab*) 400 mg PO Q6H PRN PRN Reason: PAIN - MILD TO MODERATE Last Admin: 02/20/18 09:46 Dose: 400 mg Insulin Human Lispro (Humalog*) 0 units SUBCUT ACHS [facility] PRN Reason: Protocol Last Admin: 02/20/18 09:45 Dose: Not Given Latanoprost (Xalatan 0.005%*) 1 drop RIGHT EYE BEDTIME [facility] Last Admin: 02/19/18 21:20 Dose: 1 drop Losartan Potassium (Cozaar Tab*) 50 mg PO DAILY [facility] Last Admin: 02/20/18 09:45 Dose: 50 mg Losartan Potassium (Cozaar Tab*) 25 mg PO BEDTIME [facility] Last Admin: 02/19/18 21:15 Dose: 25 mg Medroxyprogesterone Acetate (Provera Tab*) 10 mg PO BID [facility] Last Admin: 02/20/18 09:45 Dose: 10 mg Mometasone Furoate (Asmanex 220 Mcg Mdi *) 2 puff INH BEDTIME [facility] PRN Reason: Protocol Last Admin: 02/19/18 21:17 Dose: 2 puff Montelukast Sodium (Singulair Tab*) 10 mg PO BEDTIME [facility] Last Admin: 02/19/18 21:15 Dose: 10 mg Omeprazole (Prilosec Cap*) 40 mg PO QAM [facility] Last Admin: 02/20/18 08:18 Dose: 40 mg Pharmacy Consult (Zosyn Per Pharmacy*) 1 note FOLLOW UP .ZOSYN PER PHARMACY [facility] Potassium Chloride (Klor Con Er Tab*) 10 meq PO DAILY [facility] Last Admin: 02/20/18 09:47 Dose: 10 meq Tramadol HCl (Ultram*) 100 mg PO Q6HR PRN PRN Reason: PAIN Last Admin: 02/19/18 21:16 Dose: 100 mg Vital Signs - 8 hr 02/20/18 02/20/18 02/20/18 03:48 07:36 08:00 Temperature 98.4 F 98.6 F Pulse Rate 68 67 Respiratory 18 18 18 Rate Blood Pressure 139/56 166/72 (mmHg) O2 Sat by Pulse 96 98 98 Oximetry Oxygen Devices in Use Now: None Appearance: Alert, NAD Eyes: No Scleral Icterus, PERRLA Ears/Nose/Mouth/Throat: Mucous Membranes Moist Neck: NL Appearance and Movements; NL JVP, Trachea Midline Respiratory: Symmetrical Chest Expansion and Respiratory Effort, Clear to Auscultation, - - diminished bases Cardiovascular: NL Sounds; No Murmurs; No JVD, RRR Abdominal: NL Sounds; No Tenderness; No Distention Extremities: No Clubbing, Cyanosis, - - bilateral LE edema with right worse than left Skin: - - RLE increased erythema, warmth and fluctuance noted to posterior lower calf Neurological: Alert and Oriented x 3 Nutrition: Taking PO's Result Diagrams: 02/19/18 06:10 02/19/18 06:10 Additional Lab and Data: Lab Results 02/17/18 02/17/18 02/17/18 Range/Units 21:33 21:33 21:33 WBC 21.2 H (3.5-10.8) 10^3/ul RBC 4.49 (4.0-5.4) 10^6/ul Hgb 13.1 (12.0-16.0) g/dl Hct 40 (35-47) % MCV 88 (80-97) fL MCH 29 (27-31) pg MCHC 33 (31-36) g/dl RDW 15 (10.5-15) % Plt Count 147 L (150-450) 10^3/ul MPV 9.6 (7.4-10.4) um3 Neut % (Auto) 95.5 H (38-83) % Lymph % (Auto) 2.0 L (25-47) % [place] % (Auto) 2.3 (0-7) % Eos % (Auto) 0 (0-6) % Baso % (Auto) 0.2 (0-2) % Absolute Neuts (auto) 20.3 H (1.5-7.7) 10^3/ul Absolute Lymphs (auto) 0.4 L (1.0-4.8) 10^3/ul Absolute Monos (auto) 0.5 (0-0.8) 10^3/ul Absolute Eos (auto) 0 (0-0.6) 10^3/ul Absolute Basos (auto) 0 (0-0.2) 10^3/ul Absolute Nucleated RBC 0 10^3/ul Nucleated RBC % 0 Sodium 135 L (139-145) mmol/L Potassium 3.8 (3.5-5.0) mmol/L Chloride 101 (101-111) mmol/L Carbon Dioxide 27 (22-32) mmol/L Anion Gap 7 (2-11) mmol/L BUN 21 (6-24) mg/dL Creatinine 0.74 (0.51-0.95) mg/dL Est GFR ( Amer) 101.0 (>60) Est GFR (Non-Af Amer) 78.5 (>60) BUN/Creatinine Ratio 28.4 H (8-20) Glucose 156 H (70-100) mg/dL Lactic Acid 1.5 (0.5-2.0) mmol/L Calcium 9.0 (8.6-10.3) mg/dL Total Bilirubin 0.70 (0.2-1.0) mg/dL AST 12 L (13-39) U/L ALT 8 (7-52) U/L Alkaline Phosphatase 46 (34-104) U/L Total Protein 6.7 (6.4-8.9) g/dL Albumin 3.8 (3.2-5.2) g/dL Globulin 2.9 (2-4) g/dL Albumin/Globulin Ratio 1.3 (1-3) Assess/Plan/Problems-Billing Assessment: This is a 68 yo female with a PMH of morbid obesity, lymphedema, asthma, hypertension, diabetes who presented to the emergency room after she had a fall at home and couldn't get up, found to have a right lower extremity cellulitis meeting sepsis criteria, currently resolving. - Patient Problems (1) Sepsis due to cellulitis Code(s): L03.90 - CELLULITIS, UNSPECIFIED; A41.9 - SEPSIS, UNSPECIFIED ORGANISM SNOMED Code(s): 09066802 Comment: - Sepsis resolved, leukocytosis improving yesterday, pending CBC today - s/p 2L bolus and 1 gram vanco in ER - Afebrile - Concern that erythema worse today as is pain and what appears to be an area of fluctuance, will DC ceftriaxone and trial zosyn and vanco per pharm and send for US to r/o DVT and potential abscess - Blood cx NTD (2) Diabetes 1.5, managed as type 2 Code(s): E10.9 - TYPE 1 DIABETES MELLITUS WITHOUT COMPLICATIONS SNOMED Code(s) : 102222923 Comment: - FSBG with lispro SS - may be able to DC this if FSBG continues to be well controlled d/t HbA1C of 5.2% (3) Fall Comment: - 3 person assist with PT, KEREN recommended (4) HTN (hypertension) Code(s): I10 - ESSENTIAL (PRIMARY) HYPERTENSION SNOMED Code(s): 92647297 Comment: - Stable on lasix and losartan (5) Morbid obesity with BMI of 60.0-69.9, adult Code(s): E66.01 - MORBID (SEVERE) OBESITY DUE TO EXCESS CALORIES; Z68.44 - BODY MASS INDEX (BMI) 60.0-69.9, ADULT SNOMED Code(s): 446230270 Comment: - support bariatric needs, i.e., appropriate rehab facility at [place] - Nutrition consult (6) DVT prophylaxis Code(s): [id number] - SNOMED Code(s): 649380561 Comment: - HSQ Status and Disposition: Remain inpatient for additional atbx therapy and imaging. Has offer at [facility] when stable for discharge.
[2018-02-20] MEDS ORDERED: Zosyn per Pharmacy* NOTE FOLLOW UP SCH (11:00)
[2018-02-20] MEDS ORDERED: Piperacillin/Tazobac ADVAN(*) 3.375 GM in NS 0.9% 100 ML* 100 ML IVPB ONE (11:00)
[2018-02-20] MEDS ORDERED: Vancomycin(*) 2,000 MG in NS 0.9% 500 ML* 500 ML IVPB ONE (11:30)
--- NOTE | 2018-02-20 15:21 | RAD ---
HISTORY: Pain and edema COMPARISONS: None relevant TECHNIQUE: Multiple transverse and longitudinal ultrasound images were obtained of the right lower extremity from the level of the common femoral vein inferiorly through to the infrapopliteal veins using grayscale, color Doppler, and spectral Doppler imaging with and without compression and with augmentation. Comparison images were obtained of the contralateral common femoral vein. FINDINGS: The study is limited by patient body habitus. VEINS: The venous system of the right lower extremity is compressible throughout its course, with normal flow on color Doppler imaging and normal response to augmentation on spectral Doppler imaging. SOFT TISSUES: There is subcutaneous edema along the right calf. OTHER FINDINGS: None. IMPRESSION: NO RIGHT LOWER EXTREMITY DEEP VEIN THROMBOSIS
--- NOTE | 2018-02-20 15:23 | RAD ---
HISTORY: Right lower extremity soft tissue edema, rule out abscess COMPARISONS: None. TECHNIQUE: Multiple transverse and longitudinal ultrasound images were obtained of the area of clinical abnormality using grayscale, color Doppler and spectral doppler imaging. FINDINGS: In the area of clinical abnormality of the right thigh there is subcutaneous soft tissue edema without loculated fluid collection. There are subcutaneous varicosities that are patent. IMPRESSION: SOFT TISSUE EDEMA, WITHOUT LOCULATED FLUID COLLECTION TO SUGGEST ABSCESS.
[2018-02-20] MEDS: Vancomycin(*) 1,250 MG in NS 0.9% 250 ML* 250 ML IVPB SCH (20:08)
[2018-02-20] MEDS: Acetaminophen TAB* 325 MG PO PRN (22:15)
[2018-02-20] MEDS: Montelukast Sodium TAB* 10 MG PO SCH (22:15)
[2018-02-20] MEDS: Cetirizine* 10 MG TAB PO SCH (22:16)
[2018-02-20] MEDS: Aspirin EC TAB* 81 MG TAB.EC PO SCH (22:16)
[2018-02-20] MEDS: Fluticasone NASAL SPRAY 50MCG* 16 gm SPRAY BTL BOTH NARES SCH (22:16)
[2018-02-20] MEDS: Latanoprost 0.005%* 2.5 ml BTL RIGHT EYE SCH (22:17)
[2018-02-20] MEDS: traMADol TAB* 50 MG PO PRN (22:18)
[2018-02-20] MEDS: Mometasone 220 MCG MDI INH SCH (22:25)
[2018-02-20] MEDS: ZOSYN 3.375 GM Q6H - Intermittant 30 min Infusion IVPB SCH ×2 (22:27)
[2018-02-21] MEDS: Vancomycin(*) 1,250 MG in NS 0.9% 250 ML* 250 ML IVPB SCH ×3 (04:09→20:03)
[2018-02-21] MEDS: ZOSYN 3.375 GM Q6H - Intermittant 30 min Infusion IVPB SCH ×6 (06:06→17:15)
[2018-02-21] MEDS: Heparin VIAL(*) 5000 UNITS/ML VIAL (FIVE THOUSAND) SUBCUT SCH ×3 (06:07→21:15)
[2018-02-21] MEDS: Omeprazole CAP* 20 MG PO SCH (08:15)
[2018-02-21] MEDS: Cholecalciferol TAB* 1000 UNITS PO SCH (09:18)
[2018-02-21] MEDS: medroxyPROGESTERone TAB* 10 MG PO SCH ×2 (09:18→20:02)
[2018-02-21] MEDS: Losartan TAB* 25 MG PO SCH ×2 (09:19→20:01)
[2018-02-21] MEDS: Potassium Chlor TAB* 10 MEQ TAB.ER PO SCH (09:19)
[2018-02-21] MEDS: Ascorbic Acid TAB* 500 MG PO SCH (09:19)
[2018-02-21] MEDS: Furosemide TAB* 40 MG PO SCH (09:20)
[2018-02-21] MEDS: Ibuprofen TAB* 400 MG PO PRN (09:20)
[2018-02-21] MEDS: Insulin LISPRO* 1 UNITS UNIT SUBCUT SCH ×4 (09:20→19:59)
[2018-02-21] MEDS: Albuterol HFA INHALER* 8 gm MDI INH PRN ×2 (10:29→17:15)
--- NOTE | 2018-02-21 17:06 | PN ---
Subjective Date of Service: 02/21/18 Interval History: Patient seen and examined. No acute overnight events. Denies fever or chills, no tachycardia or hypotension. Remains with pain RLE but not worse than yesterday. Objective Active Medications: Acetaminophen (Tylenol Tab*) 650 mg PO Q4H PRN PRN Reason: PAIN Last Admin: 02/20/18 22:15 Dose: 650 mg Albuterol (Ventolin Hfa Inhaler*) 2 puff INH Q6H PRN PRN Reason: SOB/WHEEZING Last Admin: 02/21/18 10:29 Dose: 2 puff Ascorbic Acid (Vitamin C Tab*) 500 mg PO DAILY [facility] Last Admin: 02/21/18 09:19 Dose: 500 mg Aspirin (Aspirin Ec Tab*) 81 mg PO BEDTIME [facility] Last Admin: 02/20/18 22:16 Dose: 81 mg Cetirizine HCl (Zyrtec*) 10 mg PO BEDTIME [facility] Last Admin: 02/20/18 22:16 Dose: 10 mg Cholecalciferol (Vitamin D Tab*) 2,000 units PO DAILY [facility] Last Admin: 02/21/18 09:18 Dose: 2,000 units Dextrose (D50w Syringe 50 Ml*) 12.5 gm IV PUSH .FOR FS < 60 - SS PRN PRN Reason: FS < 60 Fluticasone Propionate (Flonase Nasal [place] 50mcg*) 1 spray BOTH NARES BEDTIME [facility] Last Admin: 02/20/18 22:16 Dose: 1 spray Furosemide (Lasix Tab*) 40 mg PO DAILY [facility] Last Admin: 02/21/18 09:20 Dose: 40 mg Heparin Sodium (Porcine) (Heparin Vial(*)) 5,000 units SUBCUT Q8HR [facility] Last Admin: 02/21/18 15:12 Dose: 5,000 units Vancomycin HCl 1,250 mg/ (Sodium Chloride) 250 mls @ 166.667 mls/hr IVPB Q8H [facility] Last Admin: 02/21/18 12:04 Dose: 166.667 mls/hr Piperacillin Sod/Tazobactam (Sod 3.375 gm/ Sodium Chloride) 100 mls @ 200 mls/ hr IVPB Q6H [facility] Last Admin: 02/21/18 11:12 Dose: 200 mls/hr Ibuprofen (Motrin Tab*) 400 mg PO Q6H PRN PRN Reason: PAIN - MILD TO MODERATE Last Admin: 02/21/18 09:20 Dose: 400 mg Insulin Human Lispro (Humalog*) 0 units SUBCUT ACHS [facility] PRN Reason: Protocol Last Admin: 02/21/18 11:26 Dose: Not Given Latanoprost (Xalatan 0.005%*) 1 drop RIGHT EYE BEDTIME [facility] Last Admin: 02/20/18 22:17 Dose: 1 drop Losartan Potassium (Cozaar Tab*) 50 mg PO DAILY [facility] Last Admin: 02/21/18 09:19 Dose: 50 mg Losartan Potassium (Cozaar Tab*) 25 mg PO BEDTIME [facility] Last Admin: 02/20/18 22:19 Dose: 25 mg Medroxyprogesterone Acetate (Provera Tab*) 10 mg PO BID [facility] Last Admin: 02/21/18 09:18 Dose: 10 mg Mometasone Furoate (Asmanex 220 Mcg Mdi *) 2 puff INH BEDTIME [facility] PRN Reason: Protocol Last Admin: 02/20/18 22:25 Dose: 2 puff Montelukast Sodium (Singulair Tab*) 10 mg PO BEDTIME [facility] Last Admin: 02/20/18 22:15 Dose: 10 mg Omeprazole (Prilosec Cap*) 40 mg PO QAM [facility] Last Admin: 02/21/18 08:15 Dose: 40 mg Pharmacy Consult (Zosyn Per Pharmacy*) 1 note FOLLOW UP .ZOSYN PER PHARMACY [facility] Pharmacy Profile Note (Vancomycin Trough Check) 1 note FOLLOW UP ONCE ONE Stop: 02/22/18 11:31 Potassium Chloride (Klor Con Er Tab*) 10 meq PO DAILY [facility] Last Admin: 02/21/18 09:19 Dose: 10 meq Tramadol HCl (Ultram*) 100 mg PO Q6HR PRN PRN Reason: PAIN Last Admin: 02/20/18 22:18 Dose: 100 mg Vital Signs - 8 hr 02/21/18 11:33 Temperature 97.9 F Pulse Rate 64 Respiratory 16 Rate Blood Pressure 130/70 (mmHg) O2 Sat by Pulse 98 Oximetry Oxygen Devices in Use Now: None Appearance: Alert, NAD Eyes: PERRLA Ears/Nose/Mouth/Throat: NL Teeth, Lips, Gums, Mucous Membranes Moist Neck: NL Appearance and Movements; NL JVP, Trachea Midline Respiratory: Symmetrical Chest Expansion and Respiratory Effort, Clear to Auscultation Cardiovascular: NL Sounds; No Murmurs; No JVD, RRR Abdominal: NL Sounds; No Tenderness; No Distention - obese Extremities: - - bilater lymphedema Skin: - - persistent erythema to RLE with warmth but slight improvment Neurological: Alert and Oriented x 3 - 2-3 person assist Nutrition: Taking PO's Result Diagrams: 02/19/18 06:10 02/19/18 06:10 Additional Lab and Data: Lab Results 02/17/18 02/17/18 02/17/18 Range/Units 21:33 21:33 21:33 WBC 21.2 H (3.5-10.8) 10^3/ul RBC 4.49 (4.0-5.4) 10^6/ul Hgb 13.1 (12.0-16.0) g/dl Hct 40 (35-47) % MCV 88 (80-97) fL MCH 29 (27-31) pg MCHC 33 (31-36) g/dl RDW 15 (10.5-15) % Plt Count 147 L (150-450) 10^3/ul MPV 9.6 (7.4-10.4) um3 Neut % (Auto) 95.5 H (38-83) % Lymph % (Auto) 2.0 L (25-47) % [place] % (Auto) 2.3 (0-7) % Eos % (Auto) 0 (0-6) % Baso % (Auto) 0.2 (0-2) % Absolute Neuts (auto) 20.3 H (1.5-7.7) 10^3/ul Absolute Lymphs (auto) 0.4 L (1.0-4.8) 10^3/ul Absolute Monos (auto) 0.5 (0-0.8) 10^3/ul Absolute Eos (auto) 0 (0-0.6) 10^3/ul Absolute Basos (auto) 0 (0-0.2) 10^3/ul Absolute Nucleated RBC 0 10^3/ul Nucleated RBC % 0 Sodium 135 L (139-145) mmol/L Potassium 3.8 (3.5-5.0) mmol/L Chloride 101 (101-111) mmol/L Carbon Dioxide 27 (22-32) mmol/L Anion Gap 7 (2-11) mmol/L BUN 21 (6-24) mg/dL Creatinine 0.74 (0.51-0.95) mg/dL Est GFR ( Amer) 101.0 (>60) Est GFR (Non-Af Amer) 78.5 (>60) BUN/Creatinine Ratio 28.4 H (8-20) Glucose 156 H (70-100) mg/dL Lactic Acid 1.5 (0.5-2.0) mmol/L Calcium 9.0 (8.6-10.3) mg/dL Total Bilirubin 0.70 (0.2-1.0) mg/dL AST 12 L (13-39) U/L ALT 8 (7-52) U/L Alkaline Phosphatase 46 (34-104) U/L Total Protein 6.7 (6.4-8.9) g/dL Albumin 3.8 (3.2-5.2) g/dL Globulin 2.9 (2-4) g/dL Albumin/Globulin Ratio 1.3 (1-3) Assess/Plan/Problems-Billing Assessment: This is a 68 yo female with a PMH of morbid obesity, lymphedema, asthma, hypertension, diabetes who presented to the emergency room after she had a fall at home and couldn't get up, found to have a right lower extremity cellulitis meeting sepsis criteria, currently resolving. - Patient Problems (1) Sepsis due to cellulitis Code(s): L03.90 - CELLULITIS, UNSPECIFIED; A41.9 - SEPSIS, UNSPECIFIED ORGANISM SNOMED Code(s): 61553283 Comment: - Sepsis resolved, requested RN to f/u on todays labs that were never drawn - Seems to be responding to current atbx regimen of zosyn and vanco - Blood cx NTD - Requested AIDAN Brannon from wound clinic to eval legs, appreciate recommendations for discharge wound care to prevent skin breakdown - Imaging negative for clot/abscess (2) Diabetes 1.5, managed as type 2 Code(s): E10.9 - TYPE 1 DIABETES MELLITUS WITHOUT COMPLICATIONS SNOMED Code(s) : 556102877 Comment: - Will DC accuchecks, has not needed coverage (3) Fall Comment: - 3 person assist with PT, KEREN recommended, [facility] accepting (4) HTN (hypertension) Code(s): I10 - ESSENTIAL (PRIMARY) HYPERTENSION SNOMED Code(s): 49794207 Comment: - Stable on lasix and losartan (5) Morbid obesity with BMI of 60.0-69.9, adult Code(s): E66.01 - MORBID (SEVERE) OBESITY DUE TO EXCESS CALORIES; Z68.44 - BODY MASS INDEX (BMI) 60.0-69.9, ADULT SNOMED Code(s): 449324129 Comment: - support bariatric needs - Nutrition consult (6) DVT prophylaxis Code(s): NHW6913 - SNOMED Code(s): 037827938 Comment: - HSQ Status and Disposition: DC in AM to [facility]
[2018-02-21 18:01] LABS: Hematocrit 39 % (35-47); Hemoglobin 13.4 g/dl (12.0-16.0); Mean Corpuscular HGB Conc 34 g/dl (31-36); Mean Corpuscular Hemoglobin 30 pg (27-31); Mean Corpuscular Volume 87 fL (80-97); Mean Platelet Volume 9.2 um3 (7.4-10.4); Platelet Count 161 10^3/ul (150-450); Red Blood Count 4.47 10^6/ul (4.0-5.4); Red Cell Distribution Width 14 % (10.5-15); White Blood Count 10.2 10^3/ul (3.5-10.8)
[2018-02-21 18:39] LABS: ABS Basophils 0.1 10^3/ul (0-0.2); ABS Eosinophils 0.1 10^3/ul (0-0.6); ABS Lymphocytes 1.2 10^3/ul (1.0-4.8); ABS Monocytes 0.7 10^3/ul (0-0.8); ABS Neutrophils 8.1 10^3/ul (1.5-7.7); ABS Nucleated RBC 0 10^3/ul; Eosinophil % 1.1 % (0-6); Lymphocyte % 11.8 % (25-47); Nucleated Red Blood Cells % 0
[2018-02-21] MEDS: Mometasone 220 MCG MDI INH SCH (19:47)
[2018-02-21] MEDS: traMADol TAB* 50 MG PO PRN (20:00)
[2018-02-21] MEDS: Montelukast Sodium TAB* 10 MG PO SCH (20:00)
[2018-02-21] MEDS: Aspirin EC TAB* 81 MG TAB.EC PO SCH (20:00)
[2018-02-21] MEDS: Cetirizine* 10 MG TAB PO SCH (20:01)
[2018-02-21] MEDS: Acetaminophen TAB* 325 MG PO PRN (20:01)
[2018-02-21] MEDS: Latanoprost 0.005%* 2.5 ml BTL RIGHT EYE SCH (20:04)
[2018-02-21] MEDS: Fluticasone NASAL SPRAY 50MCG* 16 gm SPRAY BTL BOTH NARES SCH (21:20)
[2018-02-21] MEDS ORDERED: hydrALAZINE IV* 20 MG/ML VIAL IV PRN (22:02)
[2018-02-22] MEDS: ZOSYN 3.375 GM Q6H - Intermittant 30 min Infusion IVPB SCH ×12 (00:14→17:38)
[2018-02-22] MEDS: Acetaminophen TAB* 325 MG PO PRN (01:50)
[2018-02-22] MEDS: traMADol TAB* 50 MG PO PRN (01:50)
[2018-02-22] MEDS: Vancomycin(*) 1,250 MG in NS 0.9% 250 ML* 250 ML IVPB SCH ×2 (04:33→13:33)
[2018-02-22] MEDS: Heparin VIAL(*) 5000 UNITS/ML VIAL (FIVE THOUSAND) SUBCUT SCH ×3 (05:57→20:44)
[2018-02-22] MEDS: Insulin LISPRO* 1 UNITS UNIT SUBCUT SCH ×4 (08:07→22:35)
[2018-02-22] MEDS: Omeprazole CAP* 20 MG PO SCH (08:24)
[2018-02-22] MEDS: Losartan TAB* 25 MG PO SCH ×2 (09:24→20:42)
[2018-02-22] MEDS: medroxyPROGESTERone TAB* 10 MG PO SCH ×2 (09:24→22:45)
[2018-02-22] MEDS: Ibuprofen TAB* 400 MG PO PRN (09:24)
[2018-02-22] MEDS: Ascorbic Acid TAB* 500 MG PO SCH (09:25)
[2018-02-22] MEDS: Potassium Chlor TAB* 10 MEQ TAB.ER PO SCH (09:25)
[2018-02-22] MEDS: Furosemide TAB* 40 MG PO SCH (09:25)
[2018-02-22] MEDS: Cholecalciferol TAB* 1000 UNITS PO SCH (09:25)
[2018-02-22] MEDS: Albuterol HFA INHALER* 8 gm MDI INH PRN (09:27)
[2018-02-22] MEDS ORDERED: Vancomycin Trough Check NOTE FOLLOW UP ONE (11:30)
[2018-02-22] MEDS ORDERED: Vancomycin(*) 1,000 MG in NS 0.9% 250 ML* 250 ML IVPB SCH (13:00)
[2018-02-22] MEDS: Vancomycin(*) 1,000 MG in NS 0.9% 250 ML* 250 ML IVPB SCH ×2 (13:27→20:30)
--- NOTE | 2018-02-22 16:04 | PN ---
Subjective Date of Service: 02/22/18 Interval History: Patient was seen and examined at bedside. Reports feeling better overall. She noticed some abdominal wall muscle strain when getting out of bed or lift herself up. Denies any deep visceral pain, nausea, vomiting, fever or chills. Has been ambulatory OOB, using bathroom, denies leg pain with ambulation. No chest pain, palpitation, calf pain or SOB. She has agreed to placement at [facility], and [facility]. Family History: Unchanged from Admission Social History: Unchanged from Admission Past Medical History: Unchanged from Admission Objective Active Medications: Acetaminophen (Tylenol Tab*) 650 mg PO Q4H PRN PRN Reason: PAIN Last Admin: 02/22/18 01:50 Dose: 650 mg Albuterol (Ventolin Hfa Inhaler*) 2 puff INH Q6H PRN PRN Reason: SOB/WHEEZING Last Admin: 02/22/18 09:27 Dose: 2 puff Ascorbic Acid (Vitamin C Tab*) 500 mg PO DAILY [facility] Last Admin: 02/22/18 09:25 Dose: 500 mg Aspirin (Aspirin Ec Tab*) 81 mg PO BEDTIME [facility] Last Admin: 02/21/18 20:00 Dose: 81 mg Cetirizine HCl (Zyrtec*) 10 mg PO BEDTIME [facility] Last Admin: 02/21/18 20:01 Dose: 10 mg Cholecalciferol (Vitamin D Tab*) 2,000 units PO DAILY [facility] Last Admin: 02/22/18 09:25 Dose: 2,000 units Dextrose (D50w Syringe 50 Ml*) 12.5 gm IV PUSH .FOR FS < 60 - SS PRN PRN Reason: FS < 60 Fluticasone Propionate (Flonase Nasal Hernando 50mcg*) 1 spray BOTH NARES BEDTIME [facility] Last Admin: 02/21/18 21:20 Dose: 1 spray Furosemide (Lasix Tab*) 40 mg PO DAILY [facility] Last Admin: 02/22/18 09:25 Dose: 40 mg Heparin Sodium (Porcine) (Heparin Vial(*)) 5,000 units SUBCUT 0600,1400,2200 [facility] Last Admin: 02/22/18 13:27 Dose: 5,000 units Hydralazine HCl (Apresoline Iv*) 10 mg IV Q4H PRN PRN Reason: Systolic >170 Last Admin: 02/21/18 22:24 Dose: 10 mg Piperacillin Sod/Tazobactam (Sod 3.375 gm/ Sodium Chloride) 100 mls @ 200 mls/ hr IVPB 0030,0630,1230,1830 [facility] Last Admin: 02/22/18 11:47 Dose: 200 mls/hr Vancomycin HCl 1,000 mg/ (Sodium Chloride) 250 mls @ 166.667 mls/hr IVPB Q8H [facility] Last Admin: 02/22/18 13:27 Dose: 166.667 mls/hr Ibuprofen (Motrin Tab*) 400 mg PO Q6H PRN PRN Reason: PAIN - MILD TO MODERATE Last Admin: 02/22/18 09:24 Dose: 400 mg Insulin Human Lispro (Humalog*) 0 units SUBCUT ACHS [facility] PRN Reason: Protocol Last Admin: 02/22/18 11:41 Dose: Not Given Latanoprost (Xalatan 0.005%*) 1 drop RIGHT EYE BEDTIME [facility] Last Admin: 02/21/18 20:04 Dose: 1 drop Losartan Potassium (Cozaar Tab*) 50 mg PO DAILY [facility] Last Admin: 02/22/18 09:24 Dose: 50 mg Losartan Potassium (Cozaar Tab*) 25 mg PO BEDTIME [facility] Last Admin: 02/21/18 20:01 Dose: 25 mg Medroxyprogesterone Acetate (Provera Tab*) 10 mg PO BID [facility] Last Admin: 02/22/18 09:24 Dose: 10 mg Mometasone Furoate (Asmanex 220 Mcg Mdi *) 2 puff INH BEDTIME [facility] PRN Reason: Protocol Last Admin: 02/21/18 19:47 Dose: 2 puff Montelukast Sodium (Singulair Tab*) 10 mg PO BEDTIME [facility] Last Admin: 02/21/18 20:00 Dose: 10 mg Omeprazole (Prilosec Cap*) 40 mg PO QAM [facility] Last Admin: 02/22/18 08:24 Dose: 40 mg Pharmacy Consult (Zosyn Per Pharmacy*) 1 note FOLLOW UP .ZOSYN PER PHARMACY [facility] Pharmacy Profile Note (Vancomycin Trough Check) 1 note FOLLOW UP 1200 ONE Stop: 02/24/18 12:01 Potassium Chloride (Klor Con Er Tab*) 10 meq PO DAILY [facility] Last Admin: 02/22/18 09:25 Dose: 10 meq Tramadol HCl (Ultram*) 100 mg PO Q6HR PRN PRN Reason: PAIN Last Admin: 02/22/18 01:50 Dose: 100 mg Vital Signs - 8 hr 02/22/18 02/22/18 08:00 11:54 Temperature 98.2 F Pulse Rate 64 Respiratory 18 18 Rate Blood Pressure 144/70 (mmHg) O2 Sat by Pulse 99 Oximetry Oxygen Devices in Use Now: None Appearance: Morbidly obese female, laying in bed, appears comfortable and in NAD. Eyes: No Scleral Icterus, PERRLA Ears/Nose/Mouth/Throat: Clear Oropharnyx, Mucous Membranes Moist Neck: NL Appearance and Movements; NL JVP, Trachea Midline Respiratory: Symmetrical Chest Expansion and Respiratory Effort, Clear to Auscultation, - - Decreased breath sounds at the bases. Cardiovascular: NL Sounds; No Murmurs; No JVD, RRR Abdominal: NL Sounds; No Tenderness; No Distention, - - RLQ where patient reports "muscle strain" with no evidence of hernias or masses. No tenderness, guarding or rebound. Extremities: No Clubbing, Cyanosis, - - Marked bilateral lower extremities edema noted. RLE with surrounding erythema from mid-calf to just above ankle distally. Pedal pulse difficult to assess due to edema. No ulcers or skin changes noted. Area warm to touch. No induration. Skin: No Rash or Ulcers Neurological: Alert and Oriented x 3, NL Sensation, NL Muscle Strength and Tone Nutrition: Taking PO's Result Diagrams: 02/21/18 17:45 02/21/18 17:45 Additional Lab and Data: Microbiology and Other Data: . Diagnostic Imaging: . EKG Data: . Assess/Plan/Problems-Billing Assessment: This is a 68 yo female with a PMH of morbid obesity, lymphedema, asthma, hypertension, diabetes who presented to the emergency room after she had a fall at home and couldn't get up, found to have a right lower extremity cellulitis meeting sepsis criteria, currently resolving. - Patient Problems (1) Sepsis due to cellulitis Current Visit: Yes Status: Acute Priority: High Comment: - Sepsis resolved, no fever or tachycardia past 48 hours. CBC in AM - Clinically improving. Seems to be responding to current abx regimen of zosyn and vanco - Blood cx with no growth - Requested AIDAN Brannon from wound clinic to eval legs, appreciate recommendations for discharge wound care to prevent skin breakdown - Doppler RLE negative for DVT or abscess (2) Fall Current Visit: Yes Status: Acute Comment: - 3 person assist with PT, [facility] recommended[facility] - Plan to [facility] in AM 02/23 (3) Diabetes 1.5, managed as type 2 Current Visit: Yes Status: Acute Comment: - Will DC accuchecks, has not needed coverage (4) HTN (hypertension) Current Visit: Yes Status: Chronic Comment: - Stable on lasix and losartan - May need to increase Lasix, given persistent chronic B/L LE edema (5) Morbid obesity with BMI of 60.0-69.9, adult Current Visit: Yes Status: Chronic Comment: - support bariatric needs - Nutrition consult (6) DVT prophylaxis Current Visit: Yes Status: Acute Comment: - Heparin SQ (7) Full code status Current Visit: Yes Status: Acute Status and Disposition: Inpatient. [facility].
[2018-02-22] MEDS ORDERED: Furosemide IV* 10 MG/ML VIAL (40 MG) IV ONE (16:35)
[2018-02-22] MEDS: Mometasone 220 MCG MDI INH SCH (20:15)
[2018-02-22] MEDS: Cetirizine* 10 MG TAB PO SCH (20:42)
[2018-02-22] MEDS: Montelukast Sodium TAB* 10 MG PO SCH (20:42)
[2018-02-22] MEDS: Aspirin EC TAB* 81 MG TAB.EC PO SCH (20:42)
[2018-02-22] MEDS: Fluticasone NASAL SPRAY 50MCG* 16 gm SPRAY BTL BOTH NARES SCH (22:45)
[2018-02-22] MEDS: Latanoprost 0.005%* 2.5 ml BTL RIGHT EYE SCH (22:46)
[2018-02-23] MEDS: Acetaminophen TAB* 325 MG PO PRN ×2 (00:23→11:30)
[2018-02-23] MEDS: traMADol TAB* 50 MG PO PRN (00:23)
[2018-02-23] MEDS: ZOSYN 3.375 GM Q6H - Intermittant 30 min Infusion IVPB SCH ×4 (00:26→07:19)
[2018-02-23] MEDS: Vancomycin(*) 1,000 MG in NS 0.9% 250 ML* 250 ML IVPB SCH (04:59)
[2018-02-23] MEDS: Heparin VIAL(*) 5000 UNITS/ML VIAL (FIVE THOUSAND) SUBCUT SCH (05:04)
[2018-02-23 05:21] LABS: Hematocrit 37 % (35-47); Hemoglobin 12.5 g/dl (12.0-16.0); Mean Corpuscular HGB Conc 34 g/dl (31-36); Mean Corpuscular Hemoglobin 29 pg (27-31); Mean Corpuscular Volume 87 fL (80-97); Mean Platelet Volume 9.1 um3 (7.4-10.4); Platelet Count 161 10^3/ul (150-450); Red Blood Count 4.25 10^6/ul (4.0-5.4); Red Cell Distribution Width 14 % (10.5-15); White Blood Count 9.9 10^3/ul (3.5-10.8)
[2018-02-23 05:40] LABS: EGFR Non-African American 76.1 (>60)
[2018-02-23 05:45] LABS: ABS Basophils 0.1 10^3/ul (0-0.2); ABS Eosinophils 0.1 10^3/ul (0-0.6); ABS Lymphocytes 1.6 10^3/ul (1.0-4.8); ABS Monocytes 0.7 10^3/ul (0-0.8); ABS Neutrophils 7.5 10^3/ul (1.5-7.7); ABS Nucleated RBC 0 10^3/ul; Eosinophil % 0.9 % (0-6); Lymphocyte % 15.8 % (25-47); Nucleated Red Blood Cells % 0
[2018-02-23] MEDS: Insulin LISPRO* 1 UNITS UNIT SUBCUT SCH ×2 (08:04→11:50)
[2018-02-23] MEDS: Omeprazole CAP* 20 MG PO SCH (08:20)
[2018-02-23] MEDS: Losartan TAB* 25 MG PO SCH (08:21)
[2018-02-23] MEDS: Furosemide TAB* 40 MG PO SCH (08:22)
[2018-02-23] MEDS: Potassium Chlor TAB* 10 MEQ TAB.ER PO SCH (08:22)
[2018-02-23] MEDS: Cholecalciferol TAB* 1000 UNITS PO SCH (08:22)
[2018-02-23] MEDS: Ascorbic Acid TAB* 500 MG PO SCH (08:23)
[2018-02-23] MEDS: Ibuprofen TAB* 400 MG PO PRN (08:23)
[2018-02-23] MEDS: medroxyPROGESTERone TAB* 10 MG PO SCH (08:23)
[2018-02-23 10:24] VITALS: BP 149/66
--- NOTE | 2018-02-23 10:59 | DS ---
DISCHARGE SUMMARY: DATE OF ADMISSION: 02/17/18 DATE OF DISCHARGE: 02/23/18 ADMITTING PHYSICIAN: Nelida Escobedo DO. ATTENDING HOSPITALIST: Jaqueline Cosme MD* (dictated by DEREJE Feliciano). ADMISSION DIAGNOSES: 1. Fall and right lower extremity swelling and cellulitis. 2. Severely morbid obesity. 3. Hypertension. 4. Allergic rhinitis. 5. Asthma. 6. Osteoarthritis. 7. Lymphedema. DISCHARGE DIAGNOSES: 1. Fall and right lower extremity swelling and cellulitis. 2. Severely morbid obesity. 3. Hypertension. 4. Allergic rhinitis. 5. Asthma. 6. Osteoarthritis. 7. Lymphedema. 8. Sepsis secondary to lower extremity cellulitis. PRIMARY CARE PROVIDER: Dave Reed MD. CONSULTATIONS: None. PROCEDURES: None. HISTORY OF PRESENT ILLNESS: Pauly is a pleasant 68-year-old super morbidly obese female that presented to the emergency room on 02/17/18 after she sustained a fall at home. Patient states that on the day of admission she noticed some difficulty ambulating, more than her usual self. She has always had struggles with walking due to her severe obesity as well as osteoarthritis of the right hip and knee. She notes that on admission day, her knees had given out on her and she fell at home. She was not able to get up and she sought help by EMS. She was brought to the emergency room and noted to have a fever, tachycardia, as well as swelling and redness of her right lower extremity that was consistent with a criteria for sepsis. Patient was admitted under hospitalist services for management of cellulitis and sepsis. HOSPITAL COURSE: The patient was admitted on 02/17/18 under hospitalist services. She had marked swelling on both lower extremities, but noted to be more prominent in her right calf as well as surrounding cellulitis and erythema for which soft tissue ultrasound was done to rule out any possibility of abscesses. The ultrasound showed soft tissue edema without any loculated fluid collection to suggest abscesses. Patient also had no issues with shortness of breath or history of DVT. However, a venous Doppler study was obtained and ruled out any possibility of DVT. Patient continued to improve slowly on a daily basis. She had marked leukocytosis on admission, with white count of 21, 000, that gradually went down on a daily basis. She was maintained on vancomycin after a PICC line was placed and also Zosyn was added on the following day. Her blood culture revealed no evidence of septicemia. She continued all her home medications and her Lasix was 40 mg daily and additional 40 mg was given on an as needed basis, with some improvement of her bilateral lower extremity edema. Patient was ambulatory with caution, using her walker and using the bathroom with no issues. She had Physical Therapy consultation as well a [facility] consultation to discuss placement. Patient has been living at home by herself and she gets occasional help from her neighbors around and she felt that she no longer can take care of herself being at home for the immediate time being. Requests were sent to local [facility]p facilities and patient had an opening at [facility], to be transferred later today. She was examined on a daily basis and was found to have improvement of her right lower extremity erythema and swelling. Her medication list was reviewed upon discharge and her IV antibiotics were discontinued and will be replaced with Bactrim for the next 7 days. PHYSICAL EXAMINATION: On discharge day, she appears to be comfortable, sitting on her bed, eating breakfast. ENT exam with clear throat and moist mucous membranes, with no exudate. Her neck was supple and trachea midline. Her lungs were clear to auscultation bilaterally. Her heart was regular rate and rhythm, with no rubs, murmurs or gallops. Her abdomen was soft, nontender, and nondistended, with no hernias, masses or hepatosplenomegaly noted. Her extremities with improvement in lower extremities edema as well as erythema on the right lower extremity. Juno bandage will continue to be used for compression purposes as well as the use of leg elevation while sitting. Patient will be discharged to [facility] today and she will follow up with her primary care physician later this week. DISCHARGE MEDICATIONS: Include: 1. Acetaminophen 650 mg p.o. q.4 hours p.r.n. for fever or pain. 2. Albuterol MDI 2 puffs inhaled q.6 hours as needed for shortness of breath. 3. Vitamin C 500 mg p.o. daily. 4. Aspirin 81 mg p.o. daily. 5. Azelastine 0.15% nasal spray, 1 spray in both nostrils once daily. 6. Multivitamin 1 tablet p.o. daily. 7. Vitamin D tablets 2000 units p.o. daily. 8. Fluocinonide 0.05% cream 1 application topically as directed. 9. Fluticasone nasal spray 50 mcg 1 spray in each nostril once daily. 10. Lasix 40 mg p.o. daily. 11. Motrin 400 mg p.o. q.6 hours as needed for pain or fever. 12. Claritin 10 mg p.o. daily. 13. Losartan 50 mg p.o. every morning. 14. Losartan 25 mg p.o. q.h.s. 15. Provera 10 mg p.o. b.i.d. 16. Mometasone 220 mcg MDI 2 puffs inhaled daily. 17. Singulair 10 mg p.o. daily. 18. Prilosec 40 mg p.o. q.a.m. 19. Potassium chloride tablets 10 mEq p.o. daily. 20. Bactrim DS 1 tablet p.o. b.i.d. x7 days. 21. Ultram 50 mg to 100 mg p.o. q.6 hours as needed for pain. PROBLEM LIST: 1. Sepsis secondary to right lower extremity cellulitis, is resolving with antibiotic administration, and patient will be discharged in a stable condition. 2. Hypertension, stable. 3. Morbid obesity. Patient will continue to benefit from daily PT/OT evaluation during her short-term rehab at [facility]. DEREJE FELICIANO [id number]/CPS #: [id number] MTDD
[2018-02-24] MEDS ORDERED: Vancomycin Trough Check NOTE FOLLOW UP ONE (12:00)
== END 2018-02-23 12:00 | DRG 872 ==
LOC: ED 20:32 → MED 22:50
PROVIDERS: ADMIT Pediatrics; ATTEND Internal Medicine
PROC: 02HV33Z Insertion of Infusion Device into Superior Vena Cava, Percutaneous Approach (ICD-10-PCS; principal; 2018-02-18)
DX: A41.9 Sepsis, unspecified organism (principal); L03.115 Cellulitis of right lower limb; Z68.44 Body mass index [BMI] 60.0-69.9, adult; W19.XXXA Unspecified fall, initial encounter; I10 Essential (primary) hypertension; J45.909 Unspecified asthma, uncomplicated; K21.9 Gastro-esophageal reflux disease without esophagitis; L68.0 Hirsutism; E66.01 Morbid (severe) obesity due to excess calories; M19.90 Unspecified osteoarthritis, unspecified site; I89.0 Lymphedema, not elsewhere classified; E11.9 Type 2 diabetes mellitus without complications; Y92.091 Bathroom in other non-institutional residence as the place of occurrence of the external cause; Z88.1 Allergy status to other antibiotic agents; Z86.19 Personal history of other infectious and parasitic diseases; Z98.890 Other specified postprocedural states; Z72.89 Other problems related to lifestyle; Z23 Encounter for immunization; Z79.82 Long term (current) use of aspirin; Z80.41 Family history of malignant neoplasm of ovary; Z82.49 Family history of ischemic heart disease and other diseases of the circulatory system; Z79.01 Long term (current) use of anticoagulants
CPT/HCPCS: 36415; 80048; 80053; 80202; 83036; 83605; 85025; 86140; 87040; 90732; 94640; 99283; A9270-GY; G8978-GP-CL; G8979-GP-CI; G8981-GP-CK; G8982-GP-CI; G8987-GO-CL; G8988-GO-CI; J0360; J0696; J1644; J1940; J2543; J3370

== ENCOUNTER 2018-05-14 13:09 | Emergency (ER) | payer MEDICARE ==
--- NOTE | 2018-05-14 13:16 | ED ---
Dizziness - HPI Summary HPI Summary: This is scribe Ed Sandra documenting for attending Dr. Freddie Bearden. I, Dr. Bearden, personally performed the services described in this documentation as scribed in my presence and it is both accurate and complete. - History Of Current Complaint Stated Complaint: DIZZINESS Time Seen by Provider: 05/14/18 13:15 - Allergies/Home Medications Allergies/Adverse Reactions: Allergies Allergy/AdvReac Type Severity Reaction Status Date / Time levofloxacin [From Levaquin] Allergy See Comment Verified 02/17/18 22:28 PMH/Surg Hx/FS Hx/Imm Hx Previously Healthy: No Endocrine/Hematology History: Reports: Hx Diabetes Cardiovascular History: Reports: Hx Hypertension Respiratory History: Reports: Hx Asthma GI History: Reports: Hx Ulcer - gerd Sensory History: Reports: Hx Contacts or Glasses Denies: Hx Hearing Aid Opthamlomology History: Reports: Hx Contacts or Glasses - Cancer History Hx Chemotherapy: No Hx Radiation Therapy: No - Surgical History Surgery Procedure, Year, and Place: umbilical hernia repair Infectious Disease History: Reports: Hx Shingles Denies: History Other Infectious Disease - Family History Known Family History: Positive: Unknown - pt is asleep - Social History Alcohol Use: None Substance Use Type: Reports: None Smoking Status (MU): Never Smoked Tobacco Review of Systems Constitutional: Negative Eyes: Negative ENT: Negative Cardiovascular: Negative Respiratory: Negative Gastrointestinal: Negative Genitourinary: Negative Musculoskeletal: Negative Skin: Negative Neurological: Negative Psychological: Normal All Other Systems Reviewed And Are Negative: Yes Physical Exam - Summary Physical Exam Summary: Appearance: The patient is well-nourished in no acute distress and in no acute pain. Skin: The skin is warm and dry and skin color reflects adequate perfusion. HEENT: The head is normocephalic and atraumatic. The pupils are equal and reactive. The conjunctivae are clear and without drainage. Nares are patent and without drainage. Mouth reveals moist mucous membranes and the throat is without erythema and exudate. The external ears are intact. The ear canals are patent and without drainage. The tympanic membranes are intact. Neck: The neck is supple with full range of motion and non-tender. There are no carotid bruits. There is no neck vein distension. Respiratory: Chest is non-tender. Lungs are clear to auscultation and breath sounds are symmetrical and equal. Cardiovascular: Heart is regular rate and rhythm. There is no murmur or rub auscultated. There is no peripheral edema and pulses are symmetrical and equal. Abdomen: The abdomen is soft and non-tender. There are normal bowel sounds heard in all four quadrants and there is no organomegaly palpated. Musculoskeletal: There is no back tenderness noted. Extremities are non-tender with full range of motion. There is good capillary refill. There is no peripheral edema or calf tenderness elicited. Neurological: Patient is alert and oriented to person, place and time. The patient has symmetrical motor strength in all four extremities. Cranial nerves are grossly intact. Deep tendon reflexes are symmetrical and equal in all four extremities. Psychiatric: The patient has an appropriate affect and does not exhibit any anxiety or depression. Triage Information Reviewed: Yes Vital Signs Reviewed: Yes Discharge - Discharge Plan Referrals: Dave Reed MD [Primary Care Provider] -
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
--- NOTE | 2018-05-14 15:26 | RAD ---
Indication: Chest injury. 2 views of the chest including dual energy PA views demonstrate no mediastinal shift. Heart is of normal size and configuration. The lung zhang appear clear. No significant change since May 09, 2008. IMPRESSION: No active cardiopulmonary disease.
[2018-05-14 17:22] VITALS: BP 162/78
== END 2018-05-14 17:26 | disposition home or self-care (01) ==
LOC: ED 13:09
DX: R07.89 Other chest pain (principal); Z91.81 History of falling; Z88.3 Allergy status to other anti-infective agents
CPT/HCPCS: 71046; 99283

== ENCOUNTER 2019-10-01 02:34 | Emergency (ER) | payer MEDICARE ==
--- NOTE | 2019-10-01 02:41 | ED ---
Complex/Multi-Sys Presentation - HPI Summary HPI Summary: This patient is a 69 year old female brought in by EMS presenting to [facility] with a chief complaint of sweating with exertion. She states this is atypical for her. She states she keeps thinking it has only been better but it has not. She reports nasal congestion. She states she lives in her lift chair. She states her motor broke. She states she ambulates to move between chairs and becomes SOB and diaphoresis when she ambulates. She denies chest pain, SOB at rest. She reports a Hx of DM and HTN. She states she has never had ECHO imaging done before. She is concerned about falling due to her broken chair. Medications reviewed, allergies noted. - History Of Current Complaint Hx Obtained From: Patient Onset/Duration: Lasting Hours - Allergies/Home Medications Allergies/Adverse Reactions: Allergies Allergy/AdvReac Type Severity Reaction Status Date / Time levofloxacin [From Levaquin] Allergy See Comment Verified 02/17/18 22:28 seasonal Allergy Eyes Uncoded 05/14/18 13:27 Itchy/Swollen/Red/Watery PMH/Surg Hx/FS Hx/Imm Hx Endocrine/Hematology History: Reports: Hx Diabetes Cardiovascular History: Reports: Hx Hypertension Respiratory History: Reports: Hx Asthma GI History: Reports: Hx Ulcer - gerd Sensory History: Reports: Hx Contacts or Glasses Opthamlomology History: Reports: Hx Contacts or Glasses - Cancer History Hx Chemotherapy: No Hx Radiation Therapy: No - Surgical History Surgery Procedure, Year, and Place: umbilical hernia repair Infectious Disease History: Reports: Hx Shingles Denies: History Other Infectious Disease - Family History Known Family History: Positive: Other - Cancer in mother - Social History Occupation: Retired Alcohol Use: None Hx Substance Use: No Substance Use Type: Reports: None Hx Tobacco Use: No Smoking Status (MU): Never Smoked Tobacco Review of Systems Positive: Skin Diaphoresis Positive: Nasal Discharge Negative: Chest Pain Positive: Shortness Of Breath All Other Systems Reviewed And Are Negative: Yes Physical Exam - Summary Physical Exam Summary: Constitutional: Morbidly Obese (-) Distressed Skin: Warm, Dry HENT: Normocephalic; Atraumatic Eyes: Conjunctiva normal Neck: Musculoskeletal ROM normal neck. (-) JVD, (-) Stridor, (-) Tracheal deviation Cardio: Rhythm regular, rate normal, Heart sounds normal; Intact distal pulses; Radial pulses are 2+ and symmetric. (-) Murmur Pulmonary/Chest wall: Effort normal. (-) Respiratory distress, (-) Wheezes, (-) Rales Abd: Soft, (-) tenderness, (-) Distension, (-) Guarding, (-) Rebound Musculoskeletal: Pitting Edema Bilaterally Lymph: (-) Cervical adenopathy Neuro: Alert, Oriented x3 Psych: Mood and affect Normal Triage Information Reviewed: Yes Vital Signs On Initial Exam: Temp Pulse Resp BP Pulse Ox 98.0 F 75 20 189/90 100 10/01/19 03:16 10/01/19 03:37 10/01/19 03:16 10/01/19 03:16 10/01/19 03:37 Vital Signs Reviewed: Yes Procedures - Sedation Patient Received Moderate/Deep Sedation with Procedure: No Diagnostics - Laboratory Result Diagrams: 10/01/19 03:01 10/01/19 03:01 Lab Statement: Any lab studies that have been ordered have been reviewed, and results considered in the medical decision making process. - EKG 0320 Cardiac Rate: NL - 62 BPM EKG Rhythm: Sinus Rhythm Summary of EKG Findings: One APC. ED Physician has reviewed and interpreted this EKG. Re-Evaluation - Re-Evaluation First Eval Re-Evaluation Time: 03:55 Comment: She states she feels better. She states she had been having rectal pain when she wipes and would like to get it checked out. States she will admit herself to the hospital, paying out of pocket if she cannot get her chair replaced today when she calls at 0830. Complex Multi-Symp Course/Dx Course Of Treatment: Patient is here after her chairlift at home broke. Patient does not have a suitable chair that she considered due to her morbid obesity. Patient is also getting sweaty while walking. Patient also has viral sinusitis symptoms. Patient is well-appearing. Patient had a chest x-ray showed no acute abnormality per my read. Patient had blood work performed which was grossly unremarkable. Patient had negative EKG for any ischemic changes. Patient was signed out to Dr. Figueredo. Patient will call her [employer] at 8:30 to see if they can deliver a new chair today. If that does not work, patient will either go home or be admitted for respite care. Patient is aware that she will have to pay for this out of her pocket. - Diagnoses Provider Diagnoses: Morbid obesity with BMI of 60.0-69.9, adult, Shortness of breath Discharge ED - Sign-Out/Discharge Documenting (check all that apply): Sign-Out Patient Signing out patient TO: Colten Figueredo - At shift change 0700, pending call to get her chair replaced at 0800. - Discharge Plan Condition: Stable Referrals: Dave Reed MD [Primary Care Provider] - - Billing Disposition and Condition Condition: STABLE - Attestation Statements Document Initiated by Marciaibe: Yes Documenting Scribe: Andrew Butler Provider For Whom Marciaibe is Documenting (Include Credential): Omega Graf MD Scribe Attestation: Andrew Gastelum, scribed for Omega Graf MD on 10/01/19 at 0515. Scribe Documentation Reviewed: Yes Provider Attestation: The documentation as recorded by the Andrew dc accurately reflects the service I personally performed and the decisions made by me, Omega Graf MD Status of Scribe Document: Viewed
[2019-10-01 03:10] LABS: ABS Basophils 0.1 10^3/ul (0-0.2); ABS Eosinophils 0.1 10^3/ul (0-0.6); ABS Lymphocytes 1.4 10^3/ul (1.0-4.8); ABS Monocytes 0.7 10^3/ul (0-0.8); ABS Neutrophils 10.1 10^3/ul (1.5-7.7); Eosinophil % 0.8 %; Hematocrit 40 % (35-47); Hemoglobin 13.3 g/dL (12.0-16.0); Lymphocyte % 11.3 %; Mean Corpuscular HGB Conc 33 g/dL (31-36); Mean Corpuscular Hemoglobin 29 pg (27-31); Mean Corpuscular Volume 89 fL (80-97); Mean Platelet Volume 10.2 fL (7.4-10.4); Platelet Count 164 10^3/uL (150-450); Red Blood Count 4.51 10^6 /uL (3.70-4.87); Red Cell Distribution Width 14 % (10-15); White Blood Count 12.3 10^3/uL (3.5-10.8)
[2019-10-01 03:25] LABS: Albumin 4.2 g/dL (3.2-5.2); Albumin/Globulin Ratio 1.3 (1-3); BUN/Creatinine Ratio 29.1 (8-20); EGFR African American 79.6 (>60); EGFR Non-African American 65.8 (>60); Globulin 3.3 g/dL (2-4); Potassium 4.9 mmol/L (3.5-5.0); Total Bilirubin 0.6 mg/dL (0.2-1.0); Total Protein 7.5 g/dL (6.4-8.9)
[2019-10-01 03:27] LABS: Troponin I 0.01 ng/mL (<0.03)
--- OUTSIDE RECORDS SUMMARY | 2019-10-01 03:45 | XMS REPORT ---
:1950 Author Organization [facility] Care Team Providers Name Role Phone Unavailable Unavailable Unavailable Problems Condition Condition Condition Status Onset Resolution Last Treating Comments Name Details Category Date Date Treatment Clinician Date Pain frequent Pain Mgmt Active Em pain 02-12 Austyn 10:03: [id number] 00 Cardio edema Cardiovasc Active Em ular 02-12 Austyn 10:03: [id number] 00 Respiratory dyspnea Respirator Active Em present y 02-12 Austyn 10:03: [id number] 00 Endo/Omar anti-coagul Endo/Omar Active Em ation 02-12 Austyn therapy 10:03: [id number] 00 Integument skin Integument Active Em integrity 02-12 Austyn risk 10:03: [id number] 00 Nutrition knowledge/s Nutrition Active Em kill 02-12 Austyn deficit: pt 10:03: [id number] 00 Nutrition nutritional Nutrition Resolve 2019-02-12 Em restriction d 02-12 10:03:00 Austyn s 10:03: [id number] 00 Elimination urinary Eliminatio Active Em incontinenc n 02-12 Austyn e 10:03: [id number] 00 Activity ADL Activity Active Em assistance 02-12 Austyn required 10:03: [id number] 00 Activity self-care Activity Active Em deficit 02-12 Austyn 10:03: [id number] 00 Safety fall risk Safety Active Em factor 02-12 Austyn present 10:03: [id number] 00 Safety risk for Safety Active Em hospitaliza 5-10 Austyn tion 10:03: [id number] 00 Safety can be left Safety Active Em alone for 5-10 Austyn only short 10:03: [id number] periods 00 Musculoskel requires Musculoske Active Em etal human letal 5-10 Austyn assist to 10:03: [id number] leave home 00 Nutrition nutritional Nutrition Active Em restriction 8- Austyn s 11:40: [id number] 00 Musculoskel requires Musculoske Active 2018-10 Em etal special letal -05 Austyn transportat 10:24: [id number] ion 00 Allergies, Adverse Reactions, Alerts Allergy Allergy Type Status Severity Reaction(s) Onset Inactive Treating Comments Name Date Date Clinician Levaqemil Medication Active Unknown Reaction Santa Name ID Unknown 06-06 Regeczi [id number] Medications Ordered Filled Start Stop Current Ordering Indication Dosage Frequency Signature Comments Components Medication Medication Date Date Medication? Clinician (SIG) Name Name Mt MartínezO No Silcoff Unknown Unknown thiazide 25 thiazide 25 5-10 Dave LONG mg tablet mg tablet losartan 50 losartan 50 No Silcoff Unknown Unknown mg tablet mg tablet 5-10 Dave LONG ZyrTEC 10 ZyrTEC 10 No Silcoff Unknown Unknown mg tablet mg tablet 5-10 Dave LONG Singulair Singulair No Silcoff Unknown Unknown 10 mg 10 mg 5-10 Dave LONG tablet tablet Flonase Flonase No Silcoff Unknown Unknown Allergy Allergy 5-10 Dave LONG Relief 50 Relief 50 mcg/actuati mcg/actuati on nasal on nasal spray,suspe spray,suspe nsion nsion medroxyPROG medroxyPROG No Silcoff Unknown Unknown ESTERone 10 ESTERone 10 5-10 Dave LONG mg tablet mg tablet latanoprost latanoprost No Silcoff Unknown Unknown 0.005 % eye 0.005 % eye 5-10 Dave LONG drops drops ibuprofen ibuprofen No Silcoff Unknown Unknown 200 mg 200 mg 5-10 Dave LONG tablet tablet traMADol 50 traMADol 50 No Silcoff Unknown Unknown mg tablet mg tablet 5-10 Dave LONG acetaminoph acetaminoph No Silcoff Unknown Unknown en 500 mg en 500 mg 5-10 Dave LONG tablet tablet omeprazole omeprazole No Silcoff Unknown Unknown 20 mg 20 mg 5-10 ,Dave capsule,del capsule,del ayed ayed release release Vitamin D3 Vitamin D3 No Silcoff Unknown Unknown 2,000 unit 2,000 unit 5-10 Dave LONG tablet tablet Klor-Con 10 Klor-Con 10 No Silcoff Unknown Unknown mEq mEq 5-10 Dave LOGN tablet,exte tablet,exte nded nded release release Aspirin Low Aspirin Low No Silcoff Unknown Unknown Dose 81 mg Dose 81 mg 5-10 Dave LONG tablet,ronnell tablet,ronnell yed release yed release mometasone mometasone No Silcoff Unknown Unknown 220 220 5-10 Dave LONG mcg/actuati mcg/actuati on(120 on(120 doses)breat doses)breat h activated h activated powder powder inhaler inhaler PreviDent PreviDent No Silcoff Unknown Unknown 5000 Dry 5000 Dry 5-10 Dave LONG Mouth 1.1 % Mouth 1.1 % gel gel Bactroban 2 Bactroban 2 No Silcoff Unknown Unknown % topical % topical 5-10 Dave LONG cream cream fluocinonid fluocinonid No Silcoff Unknown Unknown e topical e topical 5-10 Dave LONG cream cream furosemide furosemide No Silcoff Unknown Unknown 20 mg 20 mg 5-10 Dave LONG tablet tablet Nystop Nystop No Silcoff Unknown Unknown 100,000 100,000 5-10 Dave LONG unit/gram unit/gram topical topical powder powder Vital Signs Vital Name Observation Time Observation Value Comments SYSTOLIC mm[Hg] 2019-08-10 18:08:42 124 mm[Hg] mm[Hg] Method: Sit SYSTOLIC mm[Hg] 2019-02-12 18:05:43 140 mm[Hg] mm[Hg] Method: Stand DIASTOLIC mm[Hg] 2019-08-10 18:08:42 78 mm[Hg] mm[Hg] Method: Sit DIASTOLIC mm[Hg] 2019-02-12 18:05:43 80 mm[Hg] mm[Hg] Method: Stand PULSE 2019-08-10 18:08:42 72 /min /min RESP RATE 2019-08-10 18:08:42 16 /min /min TEMP 2019-08-10 18:08:42 98.3 [degF] Procedures This patient has no known procedures. Results This patient has no known results.
--- OUTSIDE RECORDS SUMMARY | 2019-10-01 03:45 | XMS REPORT ---
:1950 Author Organization [facility] Care Team Providers Name Role Phone Unavailable Unavailable Unavailable Problems Condition Condition Condition Status Onset Resolution Last Treating Comments Name Details Category Date Date Treatment Clinician Date Pain frequent Pain Mgmt Active Em pain 02-12 Austyn 10:03: [id number] 00 Cardio edema Cardiovasc Active Em ular 02-12 Austyn 10:03: [id number] 00 Respiratory dyspnea Respirator Active Em present y 02-12 Austyn 10:03: [id number] 00 Endo/Omar anti-coagul Endo/Omar Active Em ation 02-12 Austyn therapy 10:03: [id number] 00 Integument skin Integument Active Em integrity 02-12 Austyn risk 10:03: [id number] 00 Nutrition knowledge/s Nutrition Active Em kill 02-12 Austyn deficit: pt 10:03: [id number] 00 Nutrition nutritional Nutrition Resolve 2019-02-12 Em restriction d 02-12 10:03:00 Austyn s 10:03: [id number] 00 Elimination urinary Eliminatio Active Em incontinenc n 02-12 Austyn e 10:03: [id number] 00 Activity ADL Activity Active Em assistance 02-12 Austyn required 10:03: [id number] 00 Activity self-care Activity Active Em deficit 02-12 Austyn 10:03: [id number] 00 Safety fall risk Safety Active Em factor 02-12 Austyn present 10:03: [id number] 00 Safety risk for Safety Active Em hospitaliza 5-10 Austyn tion 10:03: [id number] 00 Safety can be left Safety Active Em alone for 5-10 Austyn only short 10:03: [id number] periods 00 Musculoskel requires Musculoske Active Em etal human letal 5-10 Austyn assist to 10:03: [id number] leave home 00 Nutrition nutritional Nutrition Active Em restriction 8- Austyn s 11:40: [id number] 00 Musculoskel requires Musculoske Active 2018-10 Em etal special letal -05 Austyn transportat 10:24: [id number] ion 00 Allergies, Adverse Reactions, Alerts Allergy Allergy Type Status Severity Reaction(s) Onset Inactive Treating Comments Name Date Date Clinician Levaqemil Medication Active Unknown Reaction Santa Name ID Unknown 06-06 Regeczi [id number] Medications Ordered Filled Start Stop Current Ordering [...] Silcoff Unknown Unknown mEq mEq 5-10 Dave LONG tablet,exte tablet,exte nded nded release release Aspirin [...]
--- OUTSIDE RECORDS SUMMARY | 2019-10-01 03:45 | XMS REPORT ---
:1950 Author Organization [facility] Care Team Providers Name Role Phone Unavailable Unavailable Unavailable Problems Condition Condition Condition Status Onset Resolution Last Treating Comments Name Details Category Date Date Treatment Clinician Date Pain frequent Pain Mgmt Active Em pain 02-12 Austyn 10:03: [id number] 00 Cardio edema Cardiovasc Active Em ular 02-12 Austyn 10:03: [id number] 00 Respiratory dyspnea Respirator Active Em present y 02-12 Austyn 10:03: [id number] 00 Endo/Omar anti-coagul Endo/Omar Active Em ation 02-12 Austyn therapy 10:03: [id number] 00 Integument skin Integument Active Em integrity 02-12 Austyn risk 10:03: [id number] 00 Nutrition knowledge/s Nutrition Active Em kill 02-12 Austyn deficit: pt 10:03: [id number] 00 Nutrition nutritional Nutrition Resolve 2019-02-12 Em restriction d 02-12 10:03:00 Austyn s 10:03: [id number] 00 Elimination urinary Eliminatio Active Em incontinenc n 02-12 Austyn e 10:03: [id number] 00 Activity ADL Activity Active Em assistance 02-12 Austyn required 10:03: [id number] 00 Activity self-care Activity Active Em deficit 02-12 Austyn 10:03: [id number] 00 Safety fall risk Safety Active Em factor 02-12 Austyn present 10:03: [id number] 00 Safety risk for Safety Active Em hospitaliza 5-10 Austyn tion 10:03: [id number] 00 Safety can be left Safety Active Em alone for 5-10 Austyn only short 10:03: [id number] periods 00 Musculoskel requires Musculoske Active Em etal human letal 5-10 Austyn assist to 10:03: [id number] leave home 00 Nutrition nutritional Nutrition Active Em restriction 8- Austyn s 11:40: [id number] 00 Musculoskel requires Musculoske Active 2018-10 Em etal special letal -05 Austyn transportat 10:24: [id number] ion 00 Allergies, Adverse Reactions, Alerts Allergy Allergy Type Status Severity Reaction(s) Onset Inactive Treating Comments Name Date Date Clinician Levaqemil Medication Active Unknown Reaction Santa Name ID Unknown 06-06 Regeczi [id number] Medications Ordered Filled Start Stop Current Ordering [...] No Silcoff Unknown Unknown 100,000 100,000 5-10 Dvae LONG unit/gram unit/gram topical topical powder powder [...]
--- OUTSIDE RECORDS SUMMARY | 2019-10-01 03:45 | XMS REPORT ---
:1950 Author Organization [facility] Care Team Providers Name Role Phone Unavailable Unavailable Unavailable Problems Condition Condition Condition Status Onset Resolution Last Treating Comments Name Details Category Date Date Treatment Clinician Date Pain frequent Pain Mgmt Active Em pain 02-12 Austyn 10:03: [id number] 00 Cardio edema Cardiovasc Active Em ular 02-12 Austyn 10:03: [id number] 00 Respiratory dyspnea Respirator Active Em present y 02-12 Austyn 10:03: [id number] 00 Endo/Omar anti-coagul Endo/Omar Active Em ation 02-12 Austyn therapy 10:03: [id number] 00 Integument skin Integument Active Em integrity 02-12 Austyn risk 10:03: [id number] 00 Nutrition knowledge/s Nutrition Active Em kill 02-12 Austyn deficit: pt 10:03: [id number] 00 Nutrition nutritional Nutrition Resolve 2019-02-12 Em restriction d 02-12 10:03:00 Austyn s 10:03: [id number] 00 Elimination urinary Eliminatio Active Em incontinenc n 02-12 Austyn e 10:03: [id number] 00 Activity ADL Activity Active Em assistance 02-12 Austyn required 10:03: [id number] 00 Activity self-care Activity Active Em deficit 02-12 Austyn 10:03: [id number] 00 Safety fall risk Safety Active Em factor 02-12 Austyn present 10:03: [id number] 00 Safety risk for Safety Active Em hospitaliza 5-10 Austyn tion 10:03: [id number] 00 Safety can be left Safety Active Em alone for 5-10 Austyn only short 10:03: [id number] periods 00 Musculoskel requires Musculoske Active Em etal human letal 5-10 Austyn assist to 10:03: [id number] leave home 00 Nutrition nutritional Nutrition Active Em restriction 8- Austyn s 11:40: [id number] 00 Musculoskel requires Musculoske Active 2018-10 Em etal special letal -05 Austyn transportat 10:24: [id number] ion 00 Allergies, Adverse Reactions, Alerts Allergy Allergy Type Status Severity Reaction(s) Onset Inactive Treating Comments Name Date Date Clinician Levaqemil Medication Active Unknown Reaction Santa Name ID Unknown 06-06 Regeczi [id number] Medications Ordered Filled Start Stop Current Ordering [...]
--- OUTSIDE RECORDS SUMMARY | 2019-10-01 03:45 | XMS REPORT ---
:1950 Author Organization [facility] Care Team Providers Name Role Phone Unavailable Unavailable Unavailable Problems Condition Condition Condition Status Onset Resolution Last Treating Comments Name Details Category Date Date Treatment Clinician Date Pain frequent Pain Mgmt Active Em pain 02-12 Austyn 10:03: [id number] 00 Cardio edema Cardiovasc Active Em ular 02-12 Austyn 10:03: [id number] 00 Respiratory dyspnea Respirator Active Em present y 02-12 Austyn 10:03: [id number] 00 Endo/Omar anti-coagul Endo/Omar Active Em ation 02-12 Austyn therapy 10:03: [id number] 00 Integument skin Integument Active Em integrity 02-12 Austyn risk 10:03: [id number] 00 Nutrition knowledge/s Nutrition Active Em kill 02-12 Austyn deficit: pt 10:03: [id number] 00 Nutrition nutritional Nutrition Resolve 2019-02-12 Em restriction d 02-12 10:03:00 Austyn s 10:03: [id number] 00 Elimination urinary Eliminatio Active Em incontinenc n 02-12 Austyn e 10:03: [id number] 00 Activity ADL Activity Active Em assistance 02-12 Austyn required 10:03: [id number] 00 Activity self-care Activity Active Em deficit 02-12 Austyn 10:03: [id number] 00 Safety fall risk Safety Active Em factor 02-12 Austyn present 10:03: [id number] 00 Safety risk for Safety Active Em hospitaliza 5-10 Austyn tion 10:03: [id number] 00 Safety can be left Safety Active Em alone for 5-10 Austyn only short 10:03: [id number] periods 00 Musculoskel requires Musculoske Active Me etal human letal 5-10 Austyn assist to 10:03: [id number] leave home 00 Nutrition nutritional Nutrition Active Em restriction 8- Austyn s 11:40: [id number] 00 Musculoskel requires Musculoske Active 2018-10 Em etal special letal -05 Austyn transportat 10:24: [id number] ion 00 Allergies, Adverse Reactions, Alerts Allergy Allergy Type Status Severity Reaction(s) Onset Inactive Treating Comments Name Date Date Clinician Levaqemil Medication Active Unknown Reaction Santa Name ID Unknown 06-06 Regeczi [id number] Medications Ordered Filled Start Stop Current Ordering [...] Unknown Unknown 20 mg 20 mg 5-10 ,aDve capsule,del capsule,del ayed ayed release release Vitamin [...]
--- OUTSIDE RECORDS SUMMARY | 2019-10-01 03:45 | XMS REPORT ---
:1950 Author Organization [facility] Care Team Providers Name Role Phone Unavailable Unavailable Unavailable Problems Condition Condition Condition Status Onset Resolution Last Treating Comments Name Details Category Date Date Treatment Clinician Date Pain frequent Pain Mgmt Active Em pain 02-12 Austyn 10:03: [id number] 00 Cardio edema Cardiovasc Active Em ular 02-12 Austyn 10:03: [id number] 00 Respiratory dyspnea Respirator Active Em present y 02-12 Austyn 10:03: [id number] 00 Endo/Omar anti-coagul Endo/Omar Active Em ation 02-12 Austyn therapy 10:03: [id number] 00 Integument skin Integument Active Em integrity 02-12 Austyn risk 10:03: [id number] 00 Nutrition knowledge/s Nutrition Active Em kill 02-12 Austyn deficit: pt 10:03: [id number] 00 Nutrition nutritional Nutrition Resolve 2019-02-12 Em restriction d 02-12 10:03:00 Austyn s 10:03: [id number] 00 Elimination urinary Eliminatio Active Em incontinenc n 02-12 Austyn e 10:03: [id number] 00 Activity ADL Activity Active Em assistance 02-12 Austyn required 10:03: [id number] 00 Activity self-care Activity Active Em deficit 02-12 Austyn 10:03: [id number] 00 Safety fall risk Safety Active Em factor 02-12 Austyn present 10:03: [id number] 00 Safety risk for Safety Active Em hospitaliza 5-10 Austyn tion 10:03: [id number] 00 Safety can be left Safety Active Em alone for 5-10 Austyn only short 10:03: [id number] periods 00 Musculoskel requires Musculoske Active Em etal human letal 5-10 Austyn assist to 10:03: [id number] leave home 00 Nutrition nutritional Nutrition Active Em restriction 8- Austyn s 11:40: [id number] 00 Musculoskel requires Musculoske Active 2018-10 Em etal special letal -05 Austyn transportat 10:24: [id number] ion 00 Allergies, Adverse Reactions, Alerts Allergy Allergy Type Status Severity Reaction(s) Onset Inactive Treating Comments Name Date Date Clinician Levaqemil Medication Active Unknown Reaction Santa Name ID Unknown 06-06 Regeczi [id number] Medications Ordered Filled Start Stop Current Ordering [...] Unknown % topical % topical 5-10 Dave LOGN cream cream fluocinonid fluocinonid No Silcoff Unknown [...]
--- OUTSIDE RECORDS SUMMARY | 2019-10-01 03:45 | XMS REPORT ---
:1950 Author Organization [facility] Care Team Providers Name Role Phone Unavailable Unavailable Unavailable Problems Condition Condition Condition Status Onset Resolution Last Treating Comments Name Details Category Date Date Treatment Clinician Date Pain frequent Pain Mgmt Active Em pain 02-12 Austyn 10:03: [id number] 00 Cardio edema Cardiovasc Active Em ular 02-12 Austyn 10:03: [id number] 00 Respiratory dyspnea Respirator Active Em present y 02-12 Austyn 10:03: [id number] 00 Endo/Omar anti-coagul Endo/Omra Active Em ation 02-12 Austyn therapy 10:03: [id number] 00 Integument skin Integument Active Em integrity 02-12 Austyn risk 10:03: [id number] 00 Nutrition knowledge/s Nutrition Active Em kill 02-12 Austyn deficit: pt 10:03: [id number] 00 Nutrition nutritional Nutrition Resolve 2019-02-12 Em restriction d 02-12 10:03:00 Austyn s 10:03: [id number] 00 Elimination urinary Eliminatio Active Em incontinenc n 02-12 Austyn e 10:03: [id number] 00 Activity ADL Activity Active Em assistance 02-12 Austyn required 10:03: [id number] 00 Activity self-care Activity Active Em deficit 02-12 Austyn 10:03: [id number] 00 Safety fall risk Safety Active Em factor 02-12 Austyn present 10:03: [id number] 00 Safety risk for Safety Active Em hospitaliza 5-10 Austyn tion 10:03: [id number] 00 Safety can be left Safety Active Em alone for 5-10 Austyn only short 10:03: [id number] periods 00 Musculoskel requires Musculoske Active Em etal human letal 5-10 Austyn assist to 10:03: [id number] leave home 00 Nutrition nutritional Nutrition Active Em restriction 8- Austyn s 11:40: [id number] 00 Musculoskel requires Musculoske Active 2018-10 Em etal special letal -05 Austyn transportat 10:24: [id number] ion 00 Allergies, Adverse Reactions, Alerts Allergy Allergy Type Status Severity Reaction(s) Onset Inactive Treating Comments Name Date Date Clinician Levaqemil Medication Active Unknown Reaction Santa Name ID Unknown 06-06 Regeczi [id number] Medications Ordered Filled Start Stop Current Ordering [...]
--- OUTSIDE RECORDS SUMMARY | 2019-10-01 03:45 | XMS REPORT ---
:1950 Author Organization [facility] Care Team Providers Name Role Phone Unavailable Unavailable Unavailable Problems Condition Condition Condition Status Onset Resolution Last Treating Comments Name Details Category Date Date Treatment Clinician Date Pain frequent Pain Mgmt Active Em pain 02-12 Austyn 10:03: [id number] 00 Cardio edema Cardiovasc Active Em ular 02-12 Austyn 10:03: [id number] 00 Respiratory dyspnea Respirator Active Em present y 02-12 Austyn 10:03: [id number] 00 Endo/Omar anti-coagul Endo/Omar Active Em ation 02-12 Austyn therapy 10:03: [id number] 00 Integument skin Integument Active Em integrity 02-12 Austyn risk 10:03: [id number] 00 Nutrition knowledge/s Nutrition Active Em kill 02-12 Austyn deficit: pt 10:03: [id number] 00 Nutrition nutritional Nutrition Resolve 2019-02-12 Em restriction d 02-12 10:03:00 Austyn s 10:03: [id number] 00 Elimination urinary Eliminatio Active Em incontinenc n 02-12 Austyn e 10:03: [id number] 00 Activity ADL Activity Active Em assistance 02-12 Austyn required 10:03: [id number] 00 Activity self-care Activity Active Em deficit 02-12 Austyn 10:03: [id number] 00 Safety fall risk Safety Active Em factor 02-12 Austyn present 10:03: [id number] 00 Safety risk for Safety Active Em hospitaliza 5-10 Austyn tion 10:03: [id number] 00 Safety can be left Safety Active Em alone for 5-10 Austyn only short 10:03: [id number] periods 00 Musculoskel requires Musculoske Active Em etal human letal 5-10 Austyn assist to 10:03: [id number] leave home 00 Nutrition nutritional Nutrition Active Em restriction 8- Austyn s 11:40: [id number] 00 Musculoskel requires Musculoske Active 2018-10 Em etal special letal -05 Austyn transportat 10:24: [id number] ion 00 Allergies, Adverse Reactions, Alerts Allergy Allergy Type Status Severity Reaction(s) Onset Inactive Treating Comments Name Date Date Clinician Levaqemil Medication Active Unknown Reaction Santa Name ID Unknown 06-06 Regeczi [id number] Medications Ordered Filled Start Stop Current Ordering [...] Unknown Unknown 200 mg 200 mg 5-10 Dvae LONG tablet tablet traMADol 50 traMADol 50 [...] Unknown e topical e topical 5-10 Dave OLNG cream cream furosemide furosemide No Silcoff Unknown [...]
--- OUTSIDE RECORDS SUMMARY | 2019-10-01 03:45 | XMS REPORT ---
:1950 Author Organization [facility] Care Team Providers Name Role Phone Unavailable Unavailable Unavailable Problems Condition Condition Condition Status Onset Resolution Last Treating Comments Name Details Category Date Date Treatment Clinician Date Type 2 Type 2 Diagnosis Active Em diabetes diabetes 02-12 Austyn mellitus mellitus [id number] without without complicatio complicatio ns ns Essential Essential Diagnosis Active Em (primary) (primary) 02-12 Austyn hypertensio hypertensio [id number] n n Lymphedema, Lymphedema, Diagnosis Active Em not not 02-12 Austyn elsewhere elsewhere [id number] classified classified Chronic Chronic Diagnosis Active Em pain pain 02-12 Austyn syndrome syndrome [id number] Morbid Morbid Diagnosis Active Em (severe) (severe) 02-12 Austyn obesity due obesity 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) 02-12 Austyn use of use of [id number] aspirin aspirin Pain frequent Pain Mgmt Active Em pain 02-12 Austyn 10:03: [id number] 00 Cardio edema Cardiovasc Active Em ular 02-12 Austyn 10:03: [id number] 00 Respiratory dyspnea Respirator Active Em present y 02-12 Austyn 10:03: [id number] 00 Endo/Omar anti-coagul Endo/Omar Active Em ation 02-12 Austyn therapy 10:03: [id number] 00 Integument skin Integument Active Em integrity 02-12 Austyn risk 10:03: [id number] 00 Nutrition knowledge/s Nutrition Active 2018- Em kill 5-10 Austyn deficit: pt 10:03: [id number] 00 Nutrition nutritional Nutrition Resolve 2018-2019-02-12 Em restriction d 5-10 10:03:00 Austyn s 10:03: [id number] 00 Elimination urinary Eliminatio Active Em incontinenc n 5-10 Austyn e 10:03: [id number] 00 Activity ADL Activity Active Em assistance - Austyn required 10:03: [id number] 00 Activity self-care Activity Active 2018- Em deficit -10 Austyn 10:03: [id number] 00 Safety fall risk Safety Active 2018- Em factor 5-10 Austyn present 10:03: [id number] 00 Safety risk for Safety Active Em hospitaliza - Austyn tion 10:03: [id number] 00 Safety can be left Safety Active Em alone for 5-10 Austyn only short 10:03: [id number] periods 00 Musculoskel requires Musculoske Active Em etal human letal 5-10 Austyn assist to 10:03: [id number] leave home 00 Nutrition nutritional Nutrition Active 2018- Em restriction 8-07 Austyn s 11:40: [id number] 00 Musculoskel requires Musculoske Active 2018-10 Em etal special letal 1-05 Austyn transportat 10:24: [id number] ion 00 Allergies, Adverse Reactions, Alerts Allergy Allergy Type Status Severity Reaction(s) Onset Inactive Treating Comments Name Date Date Clinician Levaquin Medication Active Unknown Reaction Santa Name ID Unknown 06-06 Dudley [id number] Medications Ordered Filled Start Stop Current Ordering Indication Dosage Frequency Signature Comments Components Medication Medication Date Date Medication? Clinician (SIG) Name Name hydroCHLORO hydroCHLORO No Silcoff Unknown Unknown thiazide 25 thiazide [...] 20 mg 20 mg 5-10 Dave LONG capsule,del capsule,del ayed ayed release release Vitamin D3 Vitamin D3 No Silcoff Unknown Unknown 2,000 unit 2,000 unit 5-10 Dave LONG tablet tablet Klor-Con 10 Klor-Con 10 No Silcoff Unknown Unknown mEq mEq 5-10 Dave LNOG tablet,exte tablet,exte nded nded release release Aspirin [...] Unknown Unknown e topical e topical 5-10 ,Dave cream cream furosemide furosemide No Silcoff Unknown Unknown 20 mg 20 mg 5-10 ,Dave tablet tablet Nystop Nystop No Silcoff Unknown [...]
--- OUTSIDE RECORDS SUMMARY | 2019-10-01 03:45 | XMS REPORT ---
:1950 Author Organization [facility] Care Team Providers Name Role Phone Unavailable Unavailable Unavailable Problems Condition Condition Condition Status Onset Resolution Last Treating Comments Name Details Category Date Date Treatment Clinician Date Pain frequent Pain Mgmt Active Em pain 02-12 Austyn 10:03: [id number] 00 Cardio edema Cardiovasc Active Em ular 02-12 Austyn 10:03: [id number] 00 Respiratory dyspnea Respirator Active Em present y 02-12 Austyn 10:03: [id number] 00 Endo/Omar anti-coagul Endo/Omar Active Em ation 02-12 Austyn therapy 10:03: [id number] 00 Integument skin Integument Active Em integrity 02-12 Austyn risk 10:03: [id number] 00 Nutrition knowledge/s Nutrition Active Em kill 02-12 Austyn deficit: pt 10:03: [id number] 00 Nutrition nutritional Nutrition Resolve 2019-02-12 Em restriction d 02-12 10:03:00 Austyn s 10:03: [id number] 00 Elimination urinary Eliminatio Active Em incontinenc n 02-12 Austyn e 10:03: [id number] 00 Activity ADL Activity Active Em assistance 02-12 Austyn required 10:03: [id number] 00 Activity self-care Activity Active Em deficit 02-12 Austyn 10:03: [id number] 00 Safety fall risk Safety Active Em factor 02-12 Austyn present 10:03: [id number] 00 Safety risk for Safety Active Em hospitaliza 5-10 Austyn tion 10:03: [id number] 00 Safety can be left Safety Active Em alone for 5-10 Austyn only short 10:03: [id number] periods 00 Musculoskel requires Musculoske Active Em etal human letal 5-10 Austyn assist to 10:03: [id number] leave home 00 Nutrition nutritional Nutrition Active Em restriction 8- Austyn s 11:40: [id number] 00 Musculoskel requires Musculoske Active 2018-10 Em etal special letal -05 Austyn transportat 10:24: [id number] ion 00 Allergies, Adverse Reactions, Alerts Allergy Allergy Type Status Severity Reaction(s) Onset Inactive Treating Comments Name Date Date Clinician Levaqemil Medication Active Unknown Reaction Santa Name ID Unknown 06-06 Regeczi [id number] Medications Ordered Filled Start Stop Current Ordering [...]
--- OUTSIDE RECORDS SUMMARY | 2019-10-01 03:45 | XMS REPORT ---
:1950 Author Organization [facility] Care Team Providers Name Role Phone Unavailable Unavailable Unavailable Problems Condition Condition Condition Status Onset Resolution Last Treating Comments Name Details Category Date Date Treatment Clinician Date Pain frequent Pain Mgmt Active Em pain 02-12 Austyn 10:03: [id number] 00 Cardio edema Cardiovasc Active Em ular 02-12 Austyn 10:03: [id number] 00 Respiratory dyspnea Respirator Active Em present y 02-12 Austyn 10:03: [id number] 00 Endo/Omar anti-coagul Endo/Omar Active Em ation 02-12 Austyn therapy 10:03: [id number] 00 Integument skin Integument Active Em integrity 02-12 Austyn risk 10:03: [id number] 00 Nutrition knowledge/s Nutrition Active Em kill 02-12 Austyn deficit: pt 10:03: [id number] 00 Nutrition nutritional Nutrition Resolve 2019-02-12 Em restriction d 02-12 10:03:00 Austyn s 10:03: [id number] 00 Elimination urinary Eliminatio Active Em incontinenc n 02-12 Austyn e 10:03: [id number] 00 Activity ADL Activity Active Em assistance 02-12 Austyn required 10:03: [id number] 00 Activity self-care Activity Active Em deficit 02-12 Austyn 10:03: [id number] 00 Safety fall risk Safety Active Em factor 02-12 Austyn present 10:03: [id number] 00 Safety risk for Safety Active Em hospitaliza 5-10 Austyn tion 10:03: [id number] 00 Safety can be left Safety Active Em alone for 5-10 Austyn only short 10:03: [id number] periods 00 Musculoskel requires Musculoske Active Em etal human letal 5-10 Austyn assist to 10:03: [id number] leave home 00 Nutrition nutritional Nutrition Active Em restriction 8- Austyn s 11:40: [id number] 00 Musculoskel requires Musculoske Active 2018-10 Em etal special letal -05 Austyn transportat 10:24: [id number] ion 00 Allergies, Adverse Reactions, Alerts Allergy Allergy Type Status Severity Reaction(s) Onset Inactive Treating Comments Name Date Date Clinician Levaqemil Medication Active Unknown Reaction Santa Name ID Unknown 06-06 Regeczi [id number] Medications Ordered Filled Start Stop Current Ordering [...]
--- OUTSIDE RECORDS SUMMARY | 2019-10-01 03:45 | XMS REPORT ---
:1950 Author Organization [facility] Care Team Providers Name Role Phone Unavailable Unavailable Unavailable Problems Condition Condition Condition Status Onset Resolution Last Treating Comments Name Details Category Date Date Treatment Clinician Date Pain frequent Pain Mgmt Active Em pain 02-12 Austyn 10:03: [id number] 00 Cardio edema Cardiovasc Active Em ular 02-12 Austyn 10:03: [id number] 00 Respiratory dyspnea Respirator Active Em present y 02-12 Austyn 10:03: [id number] 00 Endo/Omar anti-coagul Endo/Omar Active Em ation 02-12 Austyn therapy 10:03: [id number] 00 Integument skin Integument Active Em integrity 02-12 Austyn risk 10:03: [id number] 00 Nutrition knowledge/s Nutrition Active Em kill 02-12 Austyn deficit: pt 10:03: [id number] 00 Nutrition nutritional Nutrition Resolve 2019-02-12 Em restriction d 02-12 10:03:00 Austyn s 10:03: [id number] 00 Elimination urinary Eliminatio Active Em incontinenc n 02-12 Austyn e 10:03: [id number] 00 Activity ADL Activity Active Em assistance 02-12 Austyn required 10:03: [id number] 00 Activity self-care Activity Active Em deficit 02-12 Austyn 10:03: [id number] 00 Safety fall risk Safety Active Em factor 02-12 Austyn present 10:03: [id number] 00 Safety risk for Safety Active Em hospitaliza 5-10 Austyn tion 10:03: [id number] 00 Safety can be left Safety Active Em alone for 5-10 Austyn only short 10:03: [id number] periods 00 Musculoskel requires Musculoske Active Em etal human letal 5-10 Austyn assist to 10:03: [id number] leave home 00 Nutrition nutritional Nutrition Active Em restriction 8- Austyn s 11:40: [id number] 00 Musculoskel requires Musculoske Active 2018-10 Em etal special letal -05 Austyn transportat 10:24: [id number] ion 00 Allergies, Adverse Reactions, Alerts Allergy Allergy Type Status Severity Reaction(s) Onset Inactive Treating Comments Name Date Date Clinician Levaqemil Medication Active Unknown Reaction Santa Name ID Unknown 06-06 Regeczi [id number] Medications Ordered Filled Start Stop Current Ordering Indication Dosage Frequency Signature Comments Components Medication Medication Date Date Medication? Clinician (SIG) Name Name Mt MartínezO No Silcoff Unknown Unknown thiazide 25 thiazide 25 5-10 Daev LONG mg tablet mg tablet losartan 50 [...]
--- OUTSIDE RECORDS SUMMARY | 2019-10-01 03:45 | XMS REPORT ---
:1950 Author Organization [facility] Care Team Providers Name Role Phone Unavailable Unavailable Unavailable Problems Condition Condition Condition Status Onset Resolution Last Treating Comments Name Details Category Date Date Treatment Clinician Date Type 2 Type 2 Diagnosis Active Em diabetes diabetes 02-12 Austyn mellitus mellitus [id number] without without complicatio complicatio ns ns Essential Essential Diagnosis Active Em (primary) (primary) 02-12 Austyn hypertensio hypertensio [id number] n n Lymphedema, Lymphedema, Diagnosis Active Em not not 02-12 Austyn elsewhere elsewhere [id number] classified classified Chronic Chronic Diagnosis Active Em pain pain 02-12 Austyn syndrome syndrome [id number] Morbid Morbid Diagnosis Active Em (severe) (severe) 02-12 Austyn obesity due obesity due 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) 02-12 Austyn use of use of [id number] aspirin aspirin Pain frequent Pain Mgmt Active Em pain 02-12 Austyn 10:03: [id number] 00 Cardio edema Cardiovasc Active Em ular 02-12 Austyn 10:03: [id number] 00 Respiratory dyspnea Respirator Active Em present y 02-12 Austyn 10:03: [id number] 00 Endo/Omar anti-coagul Endo/Omar Active Em ation 02-12 Austyn therapy 10:03: [id number] 00 Integument skin Integument Active Em integrity 02-12 Austyn risk 10:03: [id number] 00 Nutrition knowledge/s Nutrition Active 2018- Em kill 5-10 Austyn deficit: pt 10:03: [id number] 00 Nutrition nutritional Nutrition Resolve 2018-2019-02-12 Em restriction d 5-10 10:03:00 Austyn s 10:03: [id number] 00 Elimination urinary Eliminatio Active Em incontinenc n 5-10 Austyn e 10:03: [id number] 00 Activity ADL Activity Active Em assistance - Austyn required 10:03: [id number] 00 Activity self-care Activity Active 2018- Em deficit -10 Austyn 10:03: [id number] 00 Safety fall risk Safety Active 2018- Em factor 5-10 Austyn present 10:03: [id number] 00 Safety risk for Safety Active Em hospitaliza - Austyn tion 10:03: [id number] 00 Safety can be left Safety Active Em alone for 5-10 Austyn only short 10:03: [id number] periods 00 Musculoskel requires Musculoske Active Em etal human letal 5-10 Austyn assist to 10:03: [id number] leave home 00 Nutrition nutritional Nutrition Active 2018- Em restriction 8-07 Austyn s 11:40: [id number] 00 Musculoskel requires Musculoske Active 2018-10 Em etal special letal 1-05 Austyn transportat 10:24: [id number] ion 00 Allergies, Adverse Reactions, Alerts Allergy Allergy Type Status Severity Reaction(s) Onset Inactive Treating Comments Name Date Date Clinician Levaquin Medication Active Unknown Reaction Santa Name ID Unknown 06-06 Dudley [id number] Medications Ordered Filled Start Stop Current Ordering [...]
--- OUTSIDE RECORDS SUMMARY | 2019-10-01 03:45 | XMS REPORT ---
:1950 Author Organization [facility] Care Team Providers Name Role Phone Unavailable Unavailable Unavailable Problems Condition Condition Condition Status Onset Resolution Last Treating Comments Name Details Category Date Date Treatment Clinician Date Pain frequent Pain Mgmt Active Em pain 02-12 Austyn 10:03: [id number] 00 Cardio edema Cardiovasc Active Em ular 02-12 Austyn 10:03: [id number] 00 Respiratory dyspnea Respirator Active Em present y 02-12 Austyn 10:03: [id number] 00 Endo/Omar anti-coagul Endo/Omar Active Em ation 02-12 Austyn therapy 10:03: [id number] 00 Integument skin Integument Active Em integrity 02-12 Austyn risk 10:03: [id number] 00 Nutrition knowledge/s Nutrition Active Em kill 02-12 Austyn deficit: pt 10:03: [id number] 00 Nutrition nutritional Nutrition Resolve 2019-02-12 Em restriction d 02-12 10:03:00 Austyn s 10:03: [id number] 00 Elimination urinary Eliminatio Active Em incontinenc n 02-12 Austyn e 10:03: [id number] 00 Activity ADL Activity Active Em assistance 02-12 Austyn required 10:03: [id number] 00 Activity self-care Activity Active Em deficit 02-12 Austyn 10:03: [id number] 00 Safety fall risk Safety Active Em factor 02-12 Austyn present 10:03: [id number] 00 Safety risk for Safety Active Em hospitaliza 5-10 Austyn tion 10:03: [id number] 00 Safety can be left Safety Active Em alone for 5-10 Austyn only short 10:03: [id number] periods 00 Musculoskel requires Musculoske Active Em etal human letal 5-10 Austyn assist to 10:03: [id number] leave home 00 Nutrition nutritional Nutrition Active Em restriction 8- Austyn s 11:40: [id number] 00 Musculoskel requires Musculoske Active 2018-10 Em etal special letal -05 Austyn transportat 10:24: [id number] ion 00 Allergies, Adverse Reactions, Alerts Allergy Allergy Type Status Severity Reaction(s) Onset Inactive Treating Comments Name Date Date Clinician Levaqemil Medication Active Unknown Reaction Santa Name ID Unknown 06-06 Regeczi [id number] Medications Ordered Filled Start Stop Current Ordering [...] 500 mg en 500 mg 5-10 Dave OLNG tablet tablet omeprazole omeprazole No Silcoff Unknown [...]
--- OUTSIDE RECORDS SUMMARY | 2019-10-01 03:45 | XMS REPORT ---
:1950 Author Organization [facility] Care Team Providers Name Role Phone Unavailable Unavailable Unavailable Problems Condition Condition Condition Status Onset Resolution Last Treating Comments Name Details Category Date Date Treatment Clinician Date Pain frequent Pain Mgmt Active Em pain 02-12 Austyn 10:03: [id number] 00 Cardio edema Cardiovasc Active Em ular 02-12 Austyn 10:03: [id number] 00 Respiratory dyspnea Respirator Active Em present y 02-12 Austyn 10:03: [id number] 00 Endo/Omar anti-coagul Endo/Omar Active Em ation 02-12 Austyn therapy 10:03: [id number] 00 Integument skin Integument Active Em integrity 02-12 Austyn risk 10:03: [id number] 00 Nutrition knowledge/s Nutrition Active Em kill 02-12 Austyn deficit: pt 10:03: [id number] 00 Nutrition nutritional Nutrition Resolve 2019-02-12 Em restriction d 02-12 10:03:00 Austyn s 10:03: [id number] 00 Elimination urinary Eliminatio Active Em incontinenc n 02-12 Austyn e 10:03: [id number] 00 Activity ADL Activity Active Em assistance 02-12 Austyn required 10:03: [id number] 00 Activity self-care Activity Active Em deficit 02-12 Austyn 10:03: [id number] 00 Safety fall risk Safety Active Em factor 02-12 Austyn present 10:03: [id number] 00 Safety risk for Safety Active Em hospitaliza 5-10 Austyn tion 10:03: [id number] 00 Safety can be left Safety Active Em alone for 5-10 Austyn only short 10:03: [id number] periods 00 Musculoskel requires Musculoske Active Em etal human letal 5-10 Austyn assist to 10:03: [id number] leave home 00 Nutrition nutritional Nutrition Active Em restriction 8- Austyn s 11:40: [id number] 00 Musculoskel requires Musculoske Active 2018-10 Em etal special letal -05 Austyn transportat 10:24: [id number] ion 00 Allergies, Adverse Reactions, Alerts Allergy Allergy Type Status Severity Reaction(s) Onset Inactive Treating Comments Name Date Date Clinician Levaqemil Medication Active Unknown Reaction Santa Name ID Unknown 06-06 Regeczi [id number] Medications Ordered Filled Start Stop Current Ordering Indication Dosage Frequency Signature Comments Components Medication Medication Date Date Medication? Clinician (SIG) Name Name Mt MartínezO No Silcoff Unknown Unknown thiazide 25 thiazide 25 5-10 Dave OLNG mg tablet mg tablet losartan 50 losartan [...]
--- OUTSIDE RECORDS SUMMARY | 2019-10-01 03:45 | XMS REPORT ---
:1950 Author Organization [facility] Care Team Providers Name Role Phone Unavailable Unavailable Unavailable Problems Condition Condition Condition Status Onset Resolution Last Treating Comments Name Details Category Date Date Treatment Clinician Date Pain frequent Pain Mgmt Active Em pain 02-12 Austyn 10:03: [id number] 00 Cardio edema Cardiovasc Active Em ular 02-12 Austyn 10:03: [id number] 00 Respiratory dyspnea Respirator Active Em present y 02-12 Austyn 10:03: [id number] 00 Endo/Omar anti-coagul Endo/Omar Active Em ation 02-12 Austyn therapy 10:03: [id number] 00 Integument skin Integument Active Em integrity 02-12 Austyn risk 10:03: [id number] 00 Nutrition knowledge/s Nutrition Active Em kill 02-12 Austyn deficit: pt 10:03: [id number] 00 Nutrition nutritional Nutrition Resolve 2019-02-12 Em restriction d 02-12 10:03:00 Austyn s 10:03: [id number] 00 Elimination urinary Eliminatio Active Em incontinenc n 02-12 Austyn e 10:03: [id number] 00 Activity ADL Activity Active Em assistance 02-12 Austyn required 10:03: [id number] 00 Activity self-care Activity Active Em deficit 02-12 Austyn 10:03: [id number] 00 Safety fall risk Safety Active Em factor 02-12 Austyn present 10:03: [id number] 00 Safety risk for Safety Active Em hospitaliza 5-10 Austyn tion 10:03: [id number] 00 Safety can be left Safety Active Em alone for 5-10 Austyn only short 10:03: [id number] periods 00 Musculoskel requires Musculoske Active Em etal human letal 5-10 Austyn assist to 10:03: [id number] leave home 00 Nutrition nutritional Nutrition Active Em restriction 8- Austyn s 11:40: [id number] 00 Musculoskel requires Musculoske Active 2018-10 Em etal special letal -05 Austyn transportat 10:24: [id number] ion 00 Allergies, Adverse Reactions, Alerts Allergy Allergy Type Status Severity Reaction(s) Onset Inactive Treating Comments Name Date Date Clinician Levaqemil Medication Active Unknown Reaction Santa Name ID Unknown 06-06 Regeczi [id number] Medications Ordered Filled Start Stop Current Ordering [...]
--- OUTSIDE RECORDS SUMMARY | 2019-10-01 03:45 | XMS REPORT ---
:1950 Author Organization [facility] Care Team Providers Name Role Phone Unavailable Unavailable Unavailable Problems Condition Condition Condition Status Onset Resolution Last Treating Comments Name Details Category Date Date Treatment Clinician Date Pain frequent Pain Mgmt Active Em pain 02-12 Austyn 10:03: [id number] 00 Cardio edema Cardiovasc Active Em ular 02-12 Austyn 10:03: [id number] 00 Respiratory dyspnea Respirator Active Em present y 02-12 Austyn 10:03: [id number] 00 Endo/Omar anti-coagul Endo/Omar Active Em ation 02-12 Austyn therapy 10:03: [id number] 00 Integument skin Integument Active Em integrity 02-12 Austyn risk 10:03: [id number] 00 Nutrition knowledge/s Nutrition Active Em kill 02-12 Austyn deficit: pt 10:03: [id number] 00 Nutrition nutritional Nutrition Resolve 2019-02-12 Em restriction d 02-12 10:03:00 Austyn s 10:03: [id number] 00 Elimination urinary Eliminatio Active Em incontinenc n 02-12 Austyn e 10:03: [id number] 00 Activity ADL Activity Active Em assistance 02-12 Austyn required 10:03: [id number] 00 Activity self-care Activity Active Em deficit 02-12 Austyn 10:03: [id number] 00 Safety fall risk Safety Active Em factor 02-12 Austyn present 10:03: [id number] 00 Safety risk for Safety Active Em hospitaliza 5-10 Austyn tion 10:03: [id number] 00 Safety can be left Safety Active Em alone for 5-10 Austyn only short 10:03: [id number] periods 00 Musculoskel requires Musculoske Active Em etal human letal 5-10 Austyn assist to 10:03: [id number] leave home 00 Nutrition nutritional Nutrition Active Em restriction 8- Austyn s 11:40: [id number] 00 Musculoskel requires Musculoske Active 2018-10 Em etal special letal -05 Austyn transportat 10:24: [id number] ion 00 Allergies, Adverse Reactions, Alerts Allergy Allergy Type Status Severity Reaction(s) Onset Inactive Treating Comments Name Date Date Clinician Levaqemil Medication Active Unknown Reaction Santa Name ID Unknown 06-06 Regeczi [id number] Medications Ordered Filled Start Stop Current Ordering [...]
--- OUTSIDE RECORDS SUMMARY | 2019-10-01 03:45 | XMS REPORT ---
:1950 Author Organization [facility] Care Team Providers Name Role Phone Unavailable Unavailable Unavailable Problems Condition Condition Condition Status Onset Resolution Last Treating Comments Name Details Category Date Date Treatment Clinician Date Pain frequent Pain Mgmt Active Em pain 02-12 Austyn 10:03: [id number] Cardio edema Cardiovasc Active Em ular 02-12 Austyn 10:03: [id number] 00 Respiratory dyspnea Respirator Active Em present y 02-12 Austyn 10:03: [id number] 00 Endo/Omar anti-coagul Endo/Omar Active Em ation 02-12 Austyn therapy 10:03: [id number] 00 Integument skin Integument Active Em integrity 02-12 Austyn risk 10:03: [id number] 00 Nutrition knowledge/s Nutrition Active Em kill 02-12 Austyn deficit: pt 10:03: [id number] 00 Nutrition nutritional Nutrition Resolve 2019-02-12 Em restriction d 02-12 10:03:00 Austyn s 10:03: [id number] 00 Elimination urinary Eliminatio Active Em incontinenc n 02-12 Austyn e 10:03: [id number] 00 Activity ADL Activity Active Em assistance 02-12 Austyn required 10:03: [id number] 00 Activity self-care Activity Active Em deficit 02-12 Austyn 10:03: [id number] 00 Safety fall risk Safety Active Em factor 02-12 Austyn present 10:03: [id number] 00 Safety risk for Safety Active Em hospitaliza 5-10 Austyn tion 10:03: [id number] 00 Safety can be left Safety Active Em alone for 5-10 Austyn only short 10:03: [id number] periods 00 Musculoskel requires Musculoske Active Em etal human letal 5-10 Austyn assist to 10:03: [id number] leave home 00 Nutrition nutritional Nutrition Active Em restriction 8- Austyn s 11:40: [id number] 00 Musculoskel requires Musculoske Active 2018-10 Em etal special letal -05 Austyn transportat 10:24: [id number] ion 00 Allergies, Adverse Reactions, Alerts Allergy Allergy Type Status Severity Reaction(s) Onset Inactive Treating Comments Name Date Date Clinician Levaqemil Medication Active Unknown Reaction Santa Name ID Unknown 06-06 Regeczi [id number] Medications Ordered Filled Start Stop Current Ordering [...]
--- NOTE | 2019-10-01 07:11 | ED ---
Progress - Progress Note Progress Note: This pt is a sign out from Dr. Graf to Dr. Figueredo at shift change on 10/01 at 0700 today pending call to [employer] to fix lift chair. Re-Evaluation - Re-Evaluation First Eval Re-Evaluation Time: 09:49 Comment: transit worker, Alma, reports pt called [employer] at 0845 and is on the list to get her lift chair fixed today but she is the third call today. Alma will follow up on this. Second Eval Re-Evaluation Time: 12:11 Comment: The patient's chair has been fixed. Reviewed discharge plan with patient. The transport has been arranged. Course/Dx - Diagnoses Provider Diagnoses: Morbid obesity with BMI of 60.0-69.9, adult, Shortness of breath Discharge ED - Sign-Out/Discharge Documenting (check all that apply): Patient Departure - Discharge home, Receiving Sign-Out Receiving patient FROM: Omega Graf - Discharge Plan Condition: Stable Disposition: HOME Referrals: Dave Reed MD [Primary Care Provider] - If Needed () Additional Instructions: Follow up with your primary care provider as needed. RETURN TO THE ED FOR ANY WORSENING OR NEW SYMPTOMS. - Billing Disposition and Condition Condition: STABLE Disposition: Home - Attestation Statements Document Initiated by Tyler: Yes Documenting Scribe: Aria Hernandez Provider For Whom Tyler is Documenting (Include Credential): Colten Figueredo MD Scribe Attestation: I, Aria Hernandez, scribed for Colten Figueredo MD on 10/01/19 at 1246. Scribe Documentation Reviewed: Yes Provider Attestation: The documentation as recorded by the Aria dc accurately reflects the service I personally performed and the decisions made by me, Colten Figueredo MD Status of Scribe Document: Viewed
[2019-10-01] MEDS ORDERED: traMADol TAB* 50 MG PO ONE (10:42)
[2019-10-01 12:26] VITALS: BP 160/71
== END 2019-10-01 12:26 | disposition home or self-care (01) ==
LOC: ED 02:34
DX: R06.02 Shortness of breath (principal); E66.01 Morbid (severe) obesity due to excess calories; Z68.44 Body mass index [BMI] 60.0-69.9, adult; E11.9 Type 2 diabetes mellitus without complications; I10 Essential (primary) hypertension; J45.909 Unspecified asthma, uncomplicated; K21.9 Gastro-esophageal reflux disease without esophagitis; Z88.1 Allergy status to other antibiotic agents
CPT/HCPCS: 36415; 71045; 80053; 83880; 84484; 85025; 93005; 99284; A9270-GY

== ENCOUNTER 2019-11-03 10:57 | Inpatient (IN) | payer MEDICARE ==
[2019-11-03 12:38] LABS: ABS Basophils 0.1 10^3/ul (0-0.2); ABS Eosinophils 0.1 10^3/ul (0-0.6); ABS Lymphocytes 1.1 10^3/ul (1.0-4.8); ABS Monocytes 0.6 10^3/ul (0-0.8); ABS Neutrophils 10.1 10^3/ul (1.5-7.7); Eosinophil % 0.8 %; Hematocrit 38 % (35-47); Hemoglobin 13.1 g/dL (12.0-16.0); Lymphocyte % 9.2 %; Mean Corpuscular HGB Conc 34 g/dL (31-36); Mean Corpuscular Hemoglobin 30 pg (27-31); Mean Corpuscular Volume 87 fL (80-97); Mean Platelet Volume 10.3 fL (7.4-10.4); Nucleated Red Blood Cells % 0.1; Platelet Count 189 10^3/uL (150-450); Red Cell Distribution Width 14 % (10-15); White Blood Count 11.9 10^3/uL (3.5-10.8)
[2019-11-03 13:00] LABS: Troponin I 0.02 ng/mL (<0.03)
[2019-11-03 13:07] LABS: Albumin 4.1 g/dL (3.2-5.2); Albumin/Globulin Ratio 1.3 (1-3); BUN/Creatinine Ratio 33.8 (8-20); C Reactive Protein 12.28 mg/L (<8.01); Calcium 9.8 mg/dL (8.6-10.3); EGFR African American 99.4 (>60); EGFR Non-African American 82.1 (>60); Globulin 3.2 g/dL (2-4); Potassium 4.1 mmol/L (3.5-5.0); Total Bilirubin 0.7 mg/dL (0.2-1.0); Total Protein 7.3 g/dL (6.4-8.9)
[2019-11-03 13:45] LABS: TSH (Thyroid Stimulating Horm) 1.37 mcIU/mL (0.34-5.60)
[2019-11-03] MEDS ORDERED: Ibuprofen TAB* 600 MG PO ONE (13:47)
[2019-11-03] MEDS ORDERED: Potassium Chlor TAB* 10 MEQ TAB.ER PO PRN (15:17)
[2019-11-03] MEDS ORDERED: Albuterol HFA INHALER* 8 gm MDI INH PRN (15:17)
--- NOTE | 2019-11-03 17:08 | ED ---
Lower Extremity - HPI Summary HPI Summary: This patient is a 69-year-old female who is morbidly obese, 425 pounds presenting to the ED with concern that she is unable to care for herself at home. She did have a fall this morning which brought her into the ED. She states she was trying to ambulate with her walker and her legs felt so heavy that she fell forward. She states she did not injure anything and nothing is in pain at this time. She does say she has chronic lymphedema and pain in her bilateral lower extremities and she noticed erythema to her bilateral lower extremities over the past few days which has not been present in the past. She has been noncompliant with her Lasix medication as she feels she is dehydrated. She also states she is unable to clean herself well so may have other sources of infection that she may not know about. She does think she is unable to care for herself at home as she is concerned with worsening falls and inability to stand due to her lymphedema. She has been to [facility] in the past, and states she will go back. - History of Current Complaint Chief Complaint: EDWeakness Stated Complaint: FALL Time Seen by Provider: 11/03/19 10:58 Hx Obtained From: Patient Severity Initially: Moderate Severity Currently: Moderate Pain Intensity: 0 Pain Scale Used: 0-10 Numeric Timing: Constant Associated Signs And Symptoms: Positive: Swelling, Redness, Weakness Aggravating Factor(s): Standing, Ambulation - Allergies/Home Medications Allergies/Adverse Reactions: Allergies Allergy/AdvReac Type Severity Reaction Status Date / Time levofloxacin [From Levaquin] Allergy See Comment Verified 02/17/18 22:28 seasonal Allergy Eyes Uncoded 05/14/18 13:27 Itchy/Swollen/Red/Watery PMH/Surg Hx/FS Hx/Imm Hx Previously Healthy: No Endocrine/Hematology History: Reports: Hx Diabetes Cardiovascular History: Reports: Hx Hypertension Respiratory History: Reports: Hx Asthma GI History: Reports: Hx Ulcer - gerd Sensory History: Reports: Hx Contacts or Glasses Opthamlomology History: Reports: Hx Contacts or Glasses - Cancer History Hx Chemotherapy: No Hx Radiation Therapy: No - Surgical History Surgery Procedure, Year, and Place: umbilical hernia repair - Immunization History Hx Pertussis Vaccination: No Immunizations Up to Date: Yes Infectious Disease History: No Infectious Disease History: Reports: Hx Shingles Denies: History Other Infectious Disease, Traveled Outside the [place] in Last 30 Days - Family History Known Family History: Positive: Unknown - pt is asleep, Other - Cancer in mother - Social History Occupation: Unemployed Lives: Alone Alcohol Use: None Hx Substance Use: No Substance Use Type: Reports: Prescribed Substance Use Comment - Amount & Last Used: tramadol Hx Tobacco Use: No Smoking Status (MU): Never Smoked Tobacco Review of Systems Negative: Fever, Chills, Fatigue, Skin Diaphoresis Negative: Palpitations, Chest Pain Negative: Cough Positive: Other - erythema to the bilateral lower extremities Positive: Weakness Psychological: Normal All Other Systems Reviewed And Are Negative: Yes Physical Exam Triage Information Reviewed: Yes Vital Signs On Initial Exam: Initial Vitals Temp Pulse Resp BP Pulse Ox 98 F 66 18 168/81 97 11/03/19 11:02 11/03/19 11:02 11/03/19 11:02 11/03/19 11:02 11/03/19 11:02 Vital Signs Reviewed: Yes Appearance: Positive: Well-Nourished, Ill-Appearing, Obese Skin: Positive: Skin Color Reflects Adequate Perfusion Head/Face: Positive: Normal Head/Face Inspection Eyes: Positive: Conjunctiva Clear Neck: Positive: Supple Respiratory/Lung Sounds: Positive: Decreased Breath Sounds Cardiovascular: Positive: Normal Musculoskeletal: Positive: Pain @ - bilateral lower extremity pain Neurological: Positive: Speech Normal Psychiatric: Positive: Normal, Affect/Mood Appropriate Procedures - Sedation Patient Received Moderate/Deep Sedation with Procedure: No Diagnostics - Vital Signs Vital Signs Temp Pulse Resp BP Pulse Ox 11/03/19 13:00 67 98 11/03/19 12:42 66 181/77 98 11/03/19 12:25 65 160/80 99 11/03/19 12:00 70 97 11/03/19 11:49 195/81 11/03/19 11:14 66 168/81 97 11/03/19 11:12 66 97 11/03/19 11:02 98 F 66 18 168/81 97 - Laboratory Lab Results: Lab Results 11/03/19 11/03/19 11/03/19 Range/Units 11:18 11:18 11:18 WBC 11.9 H (3.5-10.8) 10^3/uL RBC 4.40 (3.70-4.87) 10^6 /uL Hgb 13.1 (12.0-16.0) g/dL Hct 38 (35-47) % MCV 87 (80-97) fL MCH 30 (27-31) pg MCHC 34 (31-36) g/dL RDW 14 (10-15) % Plt Count 189 (150-450) 10^3/uL MPV 10.3 (7.4-10.4) fL Neut % (Auto) 84.1 % Lymph % (Auto) 9.2 % [place] % (Auto) 5.4 % Eos % (Auto) 0.8 % Baso % (Auto) 0.5 % Absolute Neuts (auto) 10.1 H (1.5-7.7) 10^3/ul Absolute Lymphs (auto) 1.1 (1.0-4.8) 10^3/ul Absolute Monos (auto) 0.6 (0-0.8) 10^3/ul Absolute Eos (auto) 0.1 (0-0.6) 10^3/ul Absolute Basos (auto) 0.1 (0-0.2) 10^3/ul Absolute Nucleated RBC 0.0 10^3/ul Nucleated RBC % 0.1 Sodium 137 (135-145) mmol/L Potassium 4.1 (3.5-5.0) mmol/L Chloride 103 (101-111) mmol/L Carbon Dioxide 26 (22-32) mmol/L Anion Gap 8 (2-11) mmol/L BUN 24 (6-24) mg/dL Creatinine 0.71 (0.51-0.95) mg/dL Est GFR ( Amer) 99.4 (>60) Est GFR (Non-Af Amer) 82.1 (>60) BUN/Creatinine Ratio 33.8 H (8-20) Glucose 109 H (70-100) mg/dL Lactic Acid 0.5 (0.5-2.0) mmol/L Calcium 9.8 (8.6-10.3) mg/dL Magnesium 2.0 (1.9-2.7) mg/dL Total Bilirubin 0.70 (0.2-1.0) mg/dL AST 16 (13-39) U/L ALT 9 (7-52) U/L Alkaline Phosphatase 64 (34-104) U/L Troponin I 0.02 (<0.03) ng/mL C-Reactive Protein 12.28 H (<8.01) mg/L Total Protein 7.3 (6.4-8.9) g/dL Albumin 4.1 (3.2-5.2) g/dL Globulin 3.2 (2-4) g/dL Albumin/Globulin Ratio 1.3 (1-3) TSH 1.37 (0.34-5.60) mcIU/mL Result Diagrams: 11/03/19 11:18 11/03/19 11:18 Lab Statement: Any lab studies that have been ordered have been reviewed, and results considered in the medical decision making process. Lower Extremity Course/Dx - Course Course Of Treatment: This patient is evaluated for worsening weakness and falls and inability to care for herself at home. On physical examination, patient is morbidly obese. Erythematous bullous weeping patches and lesions to the bilateral lower extremities which patient states are new. Pt has an area to the R upper leg which is possibly cellulitis with overlying abrasions from behaviors. Labs obtained and are WNL. Patient otherwise stable. Chest x-ray shows pulmonary congestion. Discussed case with social work as well as hospitalist, who will admit for inability to care for self at home. She will be placed in nursing care/rehabilitation. - Diagnoses Provider Diagnoses: Acquired lymphedema of leg, Weakness Discharge ED - Sign-Out/Discharge Documenting (check all that apply): Patient Departure - Discharge Plan Condition: Fair Disposition: ADMITTED TO [facility] - Billing Disposition and Condition Condition: FAIR Disposition: Admitted to [facility] - Attestation Statements Provider Attestation: I was available for consultation for this patient. I did not evaluate the patient or participate in any medical decision making or disposition decisions unless I am specifically named in the chart as having consulted on the patient. If I have consulted on the patient, please see my own ED note on the patient encounter. Colten Figueredo MD
--- NOTE | 2019-11-03 18:20 | HP ---
CC: Dr. Reed * HISTORY AND PHYSICAL: DATE OF ADMISSION: 11/03/19 PROVIDER: Deborah Short NP PRIMARY CARE PHYSICIAN: Dr. Reed. ATTENDING PHYSICIAN WHILE IN THE HOSPITAL: Dr. Wei Tanner * (dictated by Deborah Short NP). CHIEF COMPLAINT: 1. Fall. 2. Weakness. HISTORY OF PRESENT ILLNESS: Ms. Epstein is a 69-year-old female with past medical history significant for hypotension, morbid obesity, diabetes, allergic rhinitis, asthma, osteoarthritis, lymphedema, optic nerve atrophy, who presented to the emergency room after a fall at home. The patient reports that she got up, was trying to walk and she reports that she was unable to lift her legs and fell over her walker, then she was unable to get up. Due to this, the patient was brought to the emergency room by EMS. The patient denies any recent fevers, unintended weight loss, chest pain. She does report increased swelling to bilateral lower extremities. She does reports she stopped taking her Lasix approximately 2 weeks ago and she denies any nausea, vomiting, diarrhea, abdominal pain. She denies any hematuria, dysuria, focal weakness, sensory loss, dysphagia. She does report an open lesion to her right upper thigh and redness to her lower legs, redness to bilateral axilla. Denies any psychosis or anxiety. While in the emergency room, the patient had routine lab work drawn. She was found to have a white count of 11.9 and a CRP of 12.28. Due to the patient's inability to ambulate, falls at home and cellulitis, Hospital Medicine was asked to see and evaluate her for admission. PAST MEDICAL HISTORY: Significant for: 1. Hypertension. 2. Morbid obesity. 3. Type 2 diabetes, not treated. 4. Allergic rhinitis. 5. Asthma. 6. Osteoarthritis. 7. Lymphedema, on compression pump. 8. Right optic nerve atrophy. PAST SURGICAL HISTORY: Umbilical hernia repair. MEDICATIONS: Home medications include: 1. Tramadol 1 to 2 tablets every 6 hours, reports she takes 100 mg at bedtime only. 2. Provera 10 mg daily. 3. Potassium 10 mEq only when taking furosemide. 4. Omeprazole 40 mg p.o. daily. 4. Singulair 10 mg p.o. daily. 5. Asmanex 1 puff daily. 6. Cozaar 25 mg p.o. at bedtime, 50 mg p.o. daily. 7. Xalatan 1 drop to the right eye at bedtime, has not taken in several weeks. 8. Ibuprofen 400 mg every 6 hours as needed for pain. 9. Furosemide 40 mg p.o. daily, has not taken in 2 weeks. 10. Fluticasone 1 spray to both nares. 11. Vitamin 2000 units p.o. daily. 12. Albuterol HFA inhaler 2 puffs every 6 hours as needed for shortness of breath. 13, Acetaminophen 500 to 1000 mg every 4 to 6 hours, maximum daily dose of 3000 mg as needed for pain. ALLERGIES: LEVAQUIN. Seasonal allergies. FAMILY HISTORY: Father from an OR. Mother with coronary artery disease and ovarian cancer. No reported history of diabetes. SOCIAL HISTORY: The patient denies any tobacco, alcohol or illicit drug use. She is a lifetime nonsmoker. She is a retired teacher. She is single. She lives by herself. Surrogate decision maker in the event she is unable to make her own decisions is her sister. She wishes to be a DNR/DNI. REVIEW OF SYSTEMS: A 14-point review of systems was completed. All pertinent positives mentioned in the HPI. PHYSICAL EXAMINATION GENERAL: At this time, Ms. Epstein is a morbidly obese female, resting on the stretcher in the emergency room. She is alert and oriented, in no acute distress. VITAL SIGNS: Temperature was 98, blood pressure 160/80, heart rate 65, respirations are 18, O2 saturation 99% on room air. HEENT: Head is atraumatic, normocephalic. Eyes, EOMs are intact. Sclerae anicteric and not pale. Oral mucosa is moist. NECK: Supple. LUNGS: Clear to auscultation bilaterally. No wheezes, rales, or rhonchi. CARDIAC: S1, S2. Regular rate and rhythm. No murmurs, rubs or gallops. ABDOMEN: Obese, soft and nontender. Bowel sounds are present x4. EXTREMITIES: Lower extremities with bilateral edema. Erythema noted to bilateral lower legs with weeping. She does have an open scabbed area noted to the right thigh with surrounding erythema. Bilateral legs are warm to the touch. NEUROLOGIC: She is awake, alert and oriented x3. Speech is clear. Thought process is intact. SKIN: She does have an open area noted to her right thigh with surrounding erythema. She does have redness to the right leg and erythema is noted to bilateral lower extremities with skin weeping. LABORATORY DATA AND DIAGNOSTIC STUDIES: WBCs are 11.9, RBCs 4.40, hemoglobin 13.1, hematocrit is 38, platelet count is 189. Sodium 137, potassium 4.1, chloride 103, carbon dioxide is 26, anion gap is 8, BUN is 24, creatinine 0.71, glucose is 109, lactic acid 0.5, calcium 9.8, magnesium 2. ASTs were 16, ALTs were 9, alkaline phosphatase was 64. Troponin was 0.02. C-reactive protein was 12.28. TSH was 1.37. She had a chest x-ray, radiologist's impression: Pulmonary vascular congestion. She had an electrocardiogram, which showed sinus rhythm at a rate of 60 with PVC. ASSESSMENT AND PLAN: Ms. Epstein is a 69-year-old female with a past medical history significant for hypertension, morbid obesity, type 2 diabetes, allergic rhinitis, asthma, osteoarthritis, lymphedema, and right optic nerve atrophy, who presented to the emergency room after a fall at home, found to have right lower leg cellulitis. She will be admitted for: 1. Cellulitis. The patient does have an open wound on her right lower leg with surrounding erythema consistent with cellulitis. The patient reports the wound is from digging. I will start her on ceftriaxone 1 g every 24 hours IV. I will send blood cultures. 2. Weakness, falls. The patient does have a chronic lymphedema to her lower legs. The patient reports that she is unable to lift her legs due to weakness. I suspect that underlying cellulitis could be contributing to her weakness, but also the increased lymphedema. The patient reports she has not taken her Lasix in 2 weeks. I will start Lasix at 40 mg IV for lower extremity lymphedema. 3. Hypertension. She will continue on Losartan as previously prescribed. 4. Asthma. The patient will continue on Asmanex and albuterol as needed for shortness of breath. 5. Gastroesophageal reflux disease. She should continue on omeprazole 40 mg p.o. daily. 6. Yonny infection. The patient does have yonny noted under bilateral axillary region. I will order nystatin powder. 7. FEN. She can have a heart-healthy diet. 8. Code status. She is a full code. 9. DVT prophylaxis. I will place her on Lovenox. 10. Disposition. She will be placed under observation on the medical floor. TIME SPENT: Time spent on this admission was 60 minutes. Greater than half that time was spent at the bedside reviewing events leading thus far to her hospitalization, performing physical exam and reviewing my plan of care. I have discussed with my attending Dr. Dick Tanner, he is in agreement with my plan. DEBORAH SHORT, [employer]OR [id number]/CPS #: [id number] FELIZ
[2019-11-03] MEDS: Enoxaparin(*) 40 MG/0.4 ML SYR SUBCUT SCH (18:29)
[2019-11-03] MEDS: cefTRIAXone(*) 1 GM in NS 0.9% 50 ML* 50 ML IVPB SCH (18:29)
[2019-11-03] MEDS: Nystatin TOP POWDER* 15 GM BTL TOPICAL SCH (21:36)
[2019-11-03] MEDS: Acetaminophen TAB* 325 MG PO PRN (21:37)
[2019-11-03] MEDS: traMADol TAB* 50 MG PO PRN (21:37)
[2019-11-03] MEDS: Latanoprost 0.005%* 2.5 ml BTL RIGHT EYE SCH (21:37)
[2019-11-03] MEDS: Losartan TAB* 25 MG PO SCH (21:38)
[2019-11-04 05:42] LABS: ABS Basophils 0.1 10^3/ul (0-0.2); ABS Eosinophils 0.1 10^3/ul (0-0.6); ABS Lymphocytes 1.6 10^3/ul (1.0-4.8); ABS Monocytes 0.6 10^3/ul (0-0.8); ABS Neutrophils 5.1 10^3/ul (1.5-7.7); Eosinophil % 1.2 %; Hematocrit 35 % (35-47); Hemoglobin 11.8 g/dL (12.0-16.0); Lymphocyte % 21.6 %; Mean Corpuscular HGB Conc 34 g/dL (31-36); Mean Corpuscular Hemoglobin 30 pg (27-31); Mean Corpuscular Volume 87 fL (80-97); Mean Platelet Volume 10.4 fL (7.4-10.4); Platelet Count 178 10^3/uL (150-450); Red Blood Count 3.98 10^6 /uL (3.70-4.87); Red Cell Distribution Width 14 % (10-15); White Blood Count 7.4 10^3/uL (3.5-10.8)
[2019-11-04 05:59] LABS: BUN/Creatinine Ratio 29.2 (8-20); Calcium 8.8 mg/dL (8.6-10.3); EGFR Non-African American 90.9 (>60); Potassium 3.8 mmol/L (3.5-5.0)
[2019-11-04] MEDS: Cholecalciferol TAB* 1000 UNITS PO SCH (08:18)
[2019-11-04] MEDS: medroxyPROGESTERone TAB* 10 MG PO SCH (08:18)
[2019-11-04] MEDS: Pantoprazole TAB * 40 MG TAB PO SCH (08:18)
[2019-11-04] MEDS: Losartan TAB* 25 MG PO SCH ×2 (08:18→21:31)
[2019-11-04] MEDS: Montelukast Sodium TAB* 10 MG PO SCH (08:18)
[2019-11-04] MEDS: Potassium Chlor TAB* 10 MEQ TAB.ER PO SCH (08:18)
[2019-11-04] MEDS: Furosemide IV* 10 MG/ML VIAL (40 MG) IV SCH (08:19)
[2019-11-04] MEDS: Fluticasone NASAL SPRAY 50MCG* 16 gm SPRAY BTL BOTH NARES SCH (08:19)
[2019-11-04] MEDS: Nystatin TOP POWDER* 15 GM BTL TOPICAL SCH ×3 (08:19→21:34)
[2019-11-04] MEDS: Ibuprofen TAB* 600 MG PO PRN (08:42)
[2019-11-04] MEDS: Mometasone 220 MCG MDI INH SCH (09:38)
--- NOTE | 2019-11-04 13:46 | PN ---
Subjective Date of Service: 11/04/19 Interval History: Ms. Epstein is feeling poor today. She is beginning to feel sore from her fall yesterday - mostly bilat shoulders. Her legs are not painful, but very itchy. She was only able to get up to the side of the bed with PT today. She has been to rehab before and is agreeable to going again if necessary. No concerns from nursing. Family History: Unchanged from Admission Social History: Unchanged from Admission Past Medical History: Unchanged from Admission Objective Active Medications: Acetaminophen (Tylenol Tab*) 650 mg PO Q6H PRN MILD PAIN or TEMP > 100.4 Albuterol (Ventolin Hfa Inhaler*) 2 puff INH Q6H PRN SOB/WHEEZING Cholecalciferol (Vitamin D Tab*) 2,000 units PO DAILY HANNAH Enoxaparin Sodium (Lovenox(*)) 40 mg SUBCUT Q24H HANNAH Fluticasone Propionate (Flonase Nasal [place] 50mcg*) 1 spray BOTH NARES DAILY HANNAH Furosemide (Lasix Iv*) 40 mg IV DAILY HANNAH Ceftriaxone Sodium 1 gm/ (Sodium Chloride) 50 mls @ 100 mls/hr IVPB Q24H HANNAH Ibuprofen (Motrin Tab*) 600 mg PO Q8H PRN PAIN - MILD Latanoprost (Xalatan 0.005%*) 1 drop RIGHT EYE BEDTIME HANNAH Losartan Potassium (Cozaar Tab*) 25 mg PO BEDTIME HANNAH Losartan Potassium (Cozaar Tab*) 50 mg PO DAILY HANNAH Medroxyprogesterone Acetate (Provera Tab*) 10 mg PO DAILY HANNAH Mometasone Furoate (Asmanex 220 Mcg Mdi *) 1 puff INH DAILY HANNAH; Protocol Montelukast Sodium (Singulair Tab*) 10 mg PO DAILY HANNAH Nystatin (Nystatin Top Powder*) 1 applic TOPICAL TID HANNAH Pantoprazole Sodium (Protonix Tab*) 40 mg PO QAM HANNAH Potassium Chloride (Klor Con Er Tab*) 10 meq PO DAILY HANNAH Tramadol HCl (Ultram*) 100 mg PO BEDTIME PRN PAIN - MODERATE Vital Signs - 8 hr 11/04/19 11/04/19 11/04/19 07:46 09:30 11:46 Temperature 98.4 F 97 F 97.7 F Pulse Rate 66 68 66 Respiratory 19 14 22 Rate Blood Pressure 139/86 150/85 162/71 (mmHg) O2 Sat by Pulse 96 97 98 Oximetry Oxygen Devices in Use Now: None Appearance: Middle-aged female lying in bed in NAD Ears/Nose/Mouth/Throat: Mucous Membranes Moist Neck: NL Appearance and Movements; NL JVP, Trachea Midline Respiratory: Symmetrical Chest Expansion and Respiratory Effort, Clear to Auscultation Cardiovascular: NL Sounds; No Murmurs; No JVD, RRR Abdominal: NL Sounds; No Tenderness; No Distention Extremities: - - Moderate nonpitting BLE Skin: - - Erythema to BLE, receding from demarcated line Neurological: Alert and Oriented x 3 Lines/Tubes/Other Access: Clean, Dry and Intact Peripheral IV Nutrition: Taking PO's Result Diagrams: 11/04/19 05:14 11/04/19 05:14 Assess/Plan/Problems-Billing Assessment: Ms. Epstein is a 69 yo F with PMH of HTN, morbid obesity, DM2, asthma, lymphedema, right optic nerve atrophy; who presented to the ED with weakness and a fall at home and was found to have cellulitis. - Patient Problems (1) Lower extremity cellulitis Comment: - RLE wound with surrounding erythema noted on admission; wound is reported to be self-inflicted from digging - Not meeting sepsis criteria - Continue ceftriaxone (2) Weakness Code(s): R53.1 - WEAKNESS Comment: - Fall at home on the day of admission - Multifactorial: lymphedema, cellulitis, deconditioning, morbid obesity - PT/OT evals (3) Lymphedema Code(s): I89.0 - LYMPHEDEMA, NOT ELSEWHERE CLASSIFIED Comment: - Longstanding history of lymphedema; patient reports she has not been taking furosemide for 2 weeks prior to admission - Continue furosemide (4) HTN (hypertension) Code(s): I10 - ESSENTIAL (PRIMARY) HYPERTENSION Comment: - Hypertensive - Will consider adding another agent if BP remains elevated - Continue losartan, furosmide (5) Asthma Code(s): J45.909 - UNSPECIFIED ASTHMA, UNCOMPLICATED Comment: - Continue albuterol, mometasone, Singulair (6) GERD (gastroesophageal reflux disease) Code(s): K21.9 - GASTRO-ESOPHAGEAL REFLUX DISEASE WITHOUT ESOPHAGITIS Comment : - Continue pantoprazole (7) Morbid obesity with body mass index of 70 and over in adult Code(s): E66.01 - MORBID (SEVERE) OBESITY DUE TO EXCESS CALORIES; Z68.45 - BODY MASS INDEX (BMI) 70 OR GREATER, ADULT Comment: - BMI 71 (8) DVT prophylaxis Comment: - Lovenox (9) Full code status Code(s): Z78.9 - OTHER SPECIFIED HEALTH STATUS Comment: Status and Disposition: Inpatient. Anticipate d/c to [facility] when medically stable and bed offer secured. Attending: Jaqueline Cosme
[2019-11-04] MEDS: cefTRIAXone(*) 1 GM in NS 0.9% 50 ML* 50 ML IVPB SCH (17:49)
[2019-11-04] MEDS: Enoxaparin(*) 40 MG/0.4 ML SYR SUBCUT SCH (17:51)
[2019-11-04] MEDS: Latanoprost 0.005%* 2.5 ml BTL RIGHT EYE SCH (21:28)
[2019-11-04] MEDS: traMADol TAB* 50 MG PO PRN (21:31)
[2019-11-04] MEDS: Acetaminophen TAB* 325 MG PO PRN (21:31)
[2019-11-05] MEDS: Mometasone 220 MCG MDI INH SCH (07:46)
[2019-11-05] MEDS: medroxyPROGESTERone TAB* 10 MG PO SCH (10:12)
[2019-11-05] MEDS: Furosemide IV* 10 MG/ML VIAL (40 MG) IV SCH (10:12)
[2019-11-05] MEDS: Potassium Chlor TAB* 10 MEQ TAB.ER PO SCH (10:13)
[2019-11-05] MEDS: Cholecalciferol TAB* 1000 UNITS PO SCH (10:13)
[2019-11-05] MEDS: Fluticasone NASAL SPRAY 50MCG* 16 gm SPRAY BTL BOTH NARES SCH (10:13)
[2019-11-05] MEDS: Montelukast Sodium TAB* 10 MG PO SCH (10:14)
[2019-11-05] MEDS: Ibuprofen TAB* 600 MG PO PRN (10:14)
[2019-11-05] MEDS: Losartan TAB* 25 MG PO SCH ×2 (10:14→20:39)
[2019-11-05] MEDS: Pantoprazole TAB * 40 MG TAB PO SCH (10:14)
[2019-11-05] MEDS: Nystatin TOP POWDER* 15 GM BTL TOPICAL SCH ×3 (10:15→20:40)
--- NOTE | 2019-11-05 11:49 | PN ---
Subjective Date of Service: 11/05/19 Interval History: Ms. Epstein is feeling fine today. She offers no specific complaints, but does admit to aching in her shoulders r/t her fall. Denies CP, SOB, N/V. Requested that pictures of her legs were taken using her phone so she can send them to her PCP. No concerns from nursing. Family History: Unchanged from Admission Social History: Unchanged from Admission Past Medical History: Unchanged from Admission Objective Active Medications: Acetaminophen (Tylenol Tab*) 650 mg PO Q6H PRN MILD PAIN or TEMP > 100.4 Albuterol (Ventolin Hfa Inhaler*) 2 puff INH Q6H PRN SOB/WHEEZING Cholecalciferol (Vitamin D Tab*) 2,000 units PO DAILY [facility] Enoxaparin Sodium (Lovenox(*)) 40 mg SUBCUT Q24H [facility] Fluticasone Propionate (Flonase Nasal [place] 50mcg*) 1 spray BOTH NARES DAILY [facility] Furosemide (Lasix Iv*) 40 mg IV DAILY [facility] Ceftriaxone Sodium 1 gm/ (Sodium Chloride) 50 mls @ 100 mls/hr IVPB Q24H [facility] Ibuprofen (Motrin Tab*) 600 mg PO Q8H PRN PAIN - MILD Latanoprost (Xalatan 0.005%*) 1 drop RIGHT EYE BEDTIME [facility] Losartan Potassium (Cozaar Tab*) 25 mg PO BEDTIME [facility] Losartan Potassium (Cozaar Tab*) 50 mg PO DAILY [facility] Medroxyprogesterone Acetate (Provera Tab*) 10 mg PO DAILY [facility] Mometasone Furoate (Asmanex 220 Mcg Mdi *) 1 puff INH DAILY [facility]; Protocol Montelukast Sodium (Singulair Tab*) 10 mg PO DAILY [facility] Nystatin (Nystatin Top Powder*) 1 applic TOPICAL TID [facility] Pantoprazole Sodium (Protonix Tab*) 40 mg PO QAM [facility] Potassium Chloride (Klor Con Er Tab*) 10 meq PO DAILY [facility] Tramadol HCl (Ultram*) 100 mg PO BEDTIME PRN PAIN - MODERATE Vital Signs - 8 hr 11/05/19 11/05/19 11/05/19 04:00 07:15 07:46 Temperature 98 F 98.5 F Pulse Rate 66 67 67 Respiratory 16 16 16 Rate Blood Pressure 160/64 142/79 (mmHg) O2 Sat by Pulse 96 97 95 Oximetry 11/05/19 11/05/19 08:00 11:15 Temperature 98.1 F Pulse Rate 68 Respiratory 16 16 Rate Blood Pressure 144/71 (mmHg) O2 Sat by Pulse 99 Oximetry Oxygen Devices in Use Now: None Appearance: Middle-aged female lying in bed in NAD Ears/Nose/Mouth/Throat: Mucous Membranes Moist Neck: NL Appearance and Movements; NL JVP, Trachea Midline Respiratory: Symmetrical Chest Expansion and Respiratory Effort, Clear to Auscultation Cardiovascular: NL Sounds; No Murmurs; No JVD, RRR Abdominal: NL Sounds; No Tenderness; No Distention Extremities: - - Moderate nonpitting BLE Skin: - - Improving erythema to BLE with wounds noted on right lower leg and right lateral thigh Neurological: Alert and Oriented x 3 Lines/Tubes/Other Access: Clean, Dry and Intact Peripheral IV Nutrition: Taking PO's Result Diagrams: 11/04/19 05:14 11/04/19 05:14 Assess/Plan/Problems-Billing Assessment: Ms. Epstein is a 69 yo F with PMH of HTN, morbid obesity, DM2, asthma, lymphedema, right optic nerve atrophy; who presented to the ED with weakness and a fall at home and was found to have cellulitis. - Patient Problems (1) Lower extremity cellulitis Comment: - RLE wound with surrounding erythema noted on admission; wound is reported to be self-inflicted from digging - Not meeting sepsis criteria - Continue ceftriaxone (2) Weakness Code(s): R53.1 - WEAKNESS Comment: - Fall at home on the day of admission - Multifactorial: lymphedema, cellulitis, deconditioning, morbid obesity - PT/OT evals (3) Lymphedema Code(s): I89.0 - LYMPHEDEMA, NOT ELSEWHERE CLASSIFIED Comment: - Longstanding history of lymphedema; patient reports she has not been taking furosemide for 2 weeks prior to admission - Continue furosemide (4) HTN (hypertension) Code(s): I10 - ESSENTIAL (PRIMARY) HYPERTENSION Comment: - Normotensive - Continue losartan, furosmide (5) Asthma Code(s): J45.909 - UNSPECIFIED ASTHMA, UNCOMPLICATED Comment: - Continue albuterol, mometasone, Singulair (6) GERD (gastroesophageal reflux disease) Code(s): K21.9 - GASTRO-ESOPHAGEAL REFLUX DISEASE WITHOUT ESOPHAGITIS Comment : - Continue pantoprazole (7) Morbid obesity with body mass index of 70 and over in adult Code(s): E66.01 - MORBID (SEVERE) OBESITY DUE TO EXCESS CALORIES; Z68.45 - BODY MASS INDEX (BMI) 70 OR GREATER, ADULT Comment: - BMI 71 (8) DVT prophylaxis Comment: - Lovenox (9) Full code status Code(s): Z78.9 - OTHER SPECIFIED HEALTH STATUS Comment: Status and Disposition: Inpatient. Anticipate d/c to [facility] when bed offered. Attending: Jaqueline Cosme
[2019-11-05] MEDS: Enoxaparin(*) 40 MG/0.4 ML SYR SUBCUT SCH (16:50)
[2019-11-05] MEDS: cefTRIAXone(*) 1 GM in NS 0.9% 50 ML* 50 ML IVPB SCH (17:36)
[2019-11-05] MEDS: Acetaminophen TAB* 325 MG PO PRN (20:38)
[2019-11-05] MEDS: traMADol TAB* 50 MG PO PRN (20:39)
[2019-11-05] MEDS: Latanoprost 0.005%* 2.5 ml BTL RIGHT EYE SCH (20:40)
[2019-11-06] MEDS: Mometasone 220 MCG MDI INH SCH (08:18)
[2019-11-06] MEDS: Furosemide IV* 10 MG/ML VIAL (40 MG) IV SCH (10:28)
[2019-11-06] MEDS: Losartan TAB* 25 MG PO SCH ×2 (10:30→21:04)
[2019-11-06] MEDS: Pantoprazole TAB * 40 MG TAB PO SCH (10:30)
[2019-11-06] MEDS: Ibuprofen TAB* 600 MG PO PRN (10:30)
[2019-11-06] MEDS: Cholecalciferol TAB* 1000 UNITS PO SCH (10:30)
[2019-11-06] MEDS: Potassium Chlor TAB* 10 MEQ TAB.ER PO SCH (10:30)
[2019-11-06] MEDS: Montelukast Sodium TAB* 10 MG PO SCH (10:30)
[2019-11-06] MEDS: Nystatin TOP POWDER* 15 GM BTL TOPICAL SCH ×3 (10:31→21:05)
[2019-11-06] MEDS: Fluticasone NASAL SPRAY 50MCG* 16 gm SPRAY BTL BOTH NARES SCH (10:40)
[2019-11-06] MEDS: medroxyPROGESTERone TAB* 10 MG PO SCH (10:40)
--- NOTE | 2019-11-06 14:40 | PN ---
Subjective Date of Service: 11/06/19 Interval History: Ms. Epstein is not feeling well today. She feels very tired. Did not sleep well overnight - woke around 0300 d/t frequent urination. Denies CP or SOB. BLE are still itchy. Nursing reports patient is frequently incontinent of large amounts of urine. Family History: Unchanged from Admission Social History: Unchanged from Admission Past Medical History: Unchanged from Admission Objective Active Medications: Acetaminophen (Tylenol Tab*) 650 mg PO Q6H PRN MILD PAIN or TEMP > 100.4 Albuterol (Ventolin Hfa Inhaler*) 2 puff INH Q6H PRN SOB/WHEEZING Cholecalciferol (Vitamin D Tab*) 2,000 units PO DAILY [facility] Enoxaparin Sodium (Lovenox(*)) 40 mg SUBCUT Q24H [facility] Fluticasone Propionate (Flonase Nasal [place] 50mcg*) 1 spray BOTH NARES DAILY [facility] Furosemide (Lasix Iv*) 40 mg IV DAILY [facility] Ceftriaxone Sodium 1 gm/ (Sodium Chloride) 50 mls @ 100 mls/hr IVPB Q24H [facility] Ibuprofen (Motrin Tab*) 600 mg PO Q8H PRN PAIN - MILD Latanoprost (Xalatan 0.005%*) 1 drop RIGHT EYE BEDTIME [facility] Losartan Potassium (Cozaar Tab*) 25 mg PO BEDTIME [facility] Losartan Potassium (Cozaar Tab*) 50 mg PO DAILY [facility] Medroxyprogesterone Acetate (Provera Tab*) 10 mg PO DAILY [facility] Mometasone Furoate (Asmanex 220 Mcg Mdi *) 1 puff INH DAILY [facility]; Protocol Montelukast Sodium (Singulair Tab*) 10 mg PO DAILY [facility] Nystatin (Nystatin Top Powder*) 1 applic TOPICAL TID [facility] Pantoprazole Sodium (Protonix Tab*) 40 mg PO QAM [facility] Potassium Chloride (Klor Con Er Tab*) 10 meq PO DAILY [facility] Tramadol HCl (Ultram*) 100 mg PO BEDTIME PRN PAIN - MODERATE Vital Signs - 8 hr 11/06/19 11/06/19 11/06/19 07:15 08:00 08:19 Temperature 97.7 F Pulse Rate 72 Respiratory 18 18 16 Rate Blood Pressure 153/88 (mmHg) O2 Sat by Pulse 99 Oximetry 11/06/19 11:15 Temperature 97.3 F Pulse Rate 100 Respiratory 18 Rate Blood Pressure 130/78 (mmHg) O2 Sat by Pulse 97 Oximetry Oxygen Devices in Use Now: None Appearance: Middle-aged female lying in bed in NAD Ears/Nose/Mouth/Throat: Mucous Membranes Moist Neck: NL Appearance and Movements; NL JVP, Trachea Midline Respiratory: Symmetrical Chest Expansion and Respiratory Effort, Clear to Auscultation Cardiovascular: NL Sounds; No Murmurs; No JVD, RRR Abdominal: NL Sounds; No Tenderness; No Distention Extremities: No Edema Neurological: Alert and Oriented x 3 Lines/Tubes/Other Access: Clean, Dry and Intact Peripheral IV Nutrition: Taking PO's Result Diagrams: 11/04/19 05:14 11/04/19 05:14 Assess/Plan/Problems-Billing Assessment: Ms. Epstein is a 69 yo F with PMH of HTN, morbid obesity, DM2, asthma, lymphedema, right optic nerve atrophy; who presented to the ED with weakness and a fall at home and was found to have cellulitis. - Patient Problems (1) Lower extremity cellulitis Comment: - RLE wound with surrounding erythema noted on admission; wound is reported to be self-inflicted from digging - Not meeting sepsis criteria - Continue ceftriaxone (day 4); change to cephalexin tomorrow (2) Weakness Code(s): R53.1 - WEAKNESS Comment: - Fall at home on the day of admission - Multifactorial: lymphedema, cellulitis, deconditioning, morbid obesity - PT/OT evals (3) Lymphedema Code(s): I89.0 - LYMPHEDEMA, NOT ELSEWHERE CLASSIFIED Comment: - Longstanding history of lymphedema; patient reports she has not been taking furosemide for 2 weeks prior to admission - Continue furosemide (change to PO) (4) HTN (hypertension) Code(s): I10 - ESSENTIAL (PRIMARY) HYPERTENSION Comment: - Normotensive - Continue losartan, furosmide (5) Asthma Code(s): J45.909 - UNSPECIFIED ASTHMA, UNCOMPLICATED Comment: - Continue albuterol, mometasone, Singulair (6) GERD (gastroesophageal reflux disease) Code(s): K21.9 - GASTRO-ESOPHAGEAL REFLUX DISEASE WITHOUT ESOPHAGITIS Comment : - Continue pantoprazole (7) Morbid obesity with body mass index of 70 and over in adult Code(s): E66.01 - MORBID (SEVERE) OBESITY DUE TO EXCESS CALORIES; Z68.45 - BODY MASS INDEX (BMI) 70 OR GREATER, ADULT Comment: - BMI 71 (8) DVT prophylaxis Comment: - Lovenox (9) Full code status Code(s): Z78.9 - OTHER SPECIFIED HEALTH STATUS Comment: Status and Disposition: Inpatient. Awaiting [facility] bed. Attending: Nelida Escobedo
[2019-11-06] MEDS: Enoxaparin(*) 40 MG/0.4 ML SYR SUBCUT SCH (16:23)
[2019-11-06] MEDS: cefTRIAXone(*) 1 GM in NS 0.9% 50 ML* 50 ML IVPB SCH (17:35)
[2019-11-06] MEDS: Latanoprost 0.005%* 2.5 ml BTL RIGHT EYE SCH (21:03)
[2019-11-06] MEDS: traMADol TAB* 50 MG PO PRN (21:03)
[2019-11-06] MEDS: Acetaminophen TAB* 325 MG PO PRN (21:04)
[2019-11-07] MEDS ORDERED: Furosemide TAB* 40 MG ONE (04:49)
[2019-11-07] MEDS: Losartan TAB* 25 MG PO SCH ×3 (04:55→22:01)
[2019-11-07] MEDS: Furosemide TAB* 40 MG PO SCH ×2 (04:56→08:30)
[2019-11-07] MEDS: Mometasone 220 MCG MDI INH SCH (08:07)
[2019-11-07] MEDS: Cholecalciferol TAB* 1000 UNITS PO SCH (08:28)
[2019-11-07] MEDS: Fluticasone NASAL SPRAY 50MCG* 16 gm SPRAY BTL BOTH NARES SCH (08:28)
[2019-11-07] MEDS: Cephalexin CAP* 500 MG PO SCH ×3 (08:28→22:02)
[2019-11-07] MEDS: medroxyPROGESTERone TAB* 10 MG PO SCH (08:30)
[2019-11-07] MEDS: Potassium Chlor TAB* 10 MEQ TAB.ER PO SCH (08:31)
[2019-11-07] MEDS: Montelukast Sodium TAB* 10 MG PO SCH (08:31)
[2019-11-07] MEDS: Pantoprazole TAB * 40 MG TAB PO SCH (08:31)
[2019-11-07] MEDS: Nystatin TOP POWDER* 15 GM BTL TOPICAL SCH ×3 (08:31→22:05)
[2019-11-07] MEDS: Ibuprofen TAB* 600 MG PO PRN (08:31)
--- NOTE | 2019-11-07 09:22 | PN ---
Subjective Date of Service: 11/07/19 Interval History: Ms. Epstein is feeling a little better today. She slept 6 hours last night which is an improvement for her. Not urinating quite as frequently. Legs are less itchy than before. Denies CP or SOB. No concerns from nursing. Family History: Unchanged from Admission Social History: Unchanged from Admission Past Medical History: Unchanged from Admission Objective Active Medications: Acetaminophen (Tylenol Tab*) 650 mg PO Q6H PRN MILD PAIN or TEMP > 100.4 Albuterol (Ventolin Hfa Inhaler*) 2 puff INH Q6H PRN SOB/WHEEZING Amlodipine Besylate (Norvasc Tab*) 5 mg PO DAILY [facility] Cephalexin HCl (Keflex Cap*) 500 mg PO TID [facility] Cholecalciferol (Vitamin D Tab*) 2,000 units PO DAILY [facility] Enoxaparin Sodium (Lovenox(*)) 40 mg SUBCUT Q24H [facility] Fluticasone Propionate (Flonase Nasal [place] 50mcg*) 1 spray BOTH NARES DAILY [facility] Furosemide (Lasix Tab*) 40 mg PO DAILY [facility] Ibuprofen (Motrin Tab*) 600 mg PO Q8H PRN PAIN - MILD Latanoprost (Xalatan 0.005%*) 1 drop RIGHT EYE BEDTIME [facility] Losartan Potassium (Cozaar Tab*) 50 mg PO DAILY [facility] Losartan Potassium (Cozaar Tab*) 50 mg PO BEDTIME [facility] Medroxyprogesterone Acetate (Provera Tab*) 10 mg PO DAILY [facility] Mometasone Furoate (Asmanex 220 Mcg Mdi *) 1 puff INH DAILY [facility]; Protocol Montelukast Sodium (Singulair Tab*) 10 mg PO DAILY [facility] Nystatin (Nystatin Top Powder*) 1 applic TOPICAL TID [facility] Pantoprazole Sodium (Protonix Tab*) 40 mg PO QAM [facility] Potassium Chloride (Klor Con Er Tab*) 10 meq PO DAILY [facility] Tramadol HCl (Ultram*) 100 mg PO BEDTIME PRN PAIN - MODERATE Vital Signs - 8 hr 11/07/19 03:15 Temperature 97.3 F Pulse Rate 70 Respiratory 22 Rate Blood Pressure 175/76 (mmHg) O2 Sat by Pulse 93 Oximetry Oxygen Devices in Use Now: None Appearance: Middle-aged female lying in bed in NAD Ears/Nose/Mouth/Throat: Mucous Membranes Moist Neck: NL Appearance and Movements; NL JVP, Trachea Midline Respiratory: Symmetrical Chest Expansion and Respiratory Effort, Clear to Auscultation Cardiovascular: NL Sounds; No Murmurs; No JVD, RRR Abdominal: NL Sounds; No Tenderness; No Distention Extremities: No Edema Neurological: Alert and Oriented x 3 Lines/Tubes/Other Access: Clean, Dry and Intact Peripheral IV Nutrition: Taking PO's Result Diagrams: 11/04/19 05:14 11/04/19 05:14 Assess/Plan/Problems-Billing Assessment: Ms. Epstein is a 69 yo F with PMH of HTN, morbid obesity, DM2, asthma, lymphedema, right optic nerve atrophy; who presented to the ED with weakness and a fall at home and was found to have cellulitis. - Patient Problems (1) Lower extremity cellulitis Comment: - RLE wound with surrounding erythema noted on admission; wound is reported to be self-inflicted from digging - Not meeting sepsis criteria - Continue cephalexin (day 5) (2) Weakness Code(s): R53.1 - WEAKNESS Comment: - Fall at home on the day of admission - Multifactorial: lymphedema, cellulitis, deconditioning, morbid obesity - PT/OT evals; will need [facility] (3) Lymphedema Code(s): I89.0 - LYMPHEDEMA, NOT ELSEWHERE CLASSIFIED Comment: - Longstanding history of lymphedema; patient reports she has not been taking furosemide for 2 weeks prior to admission - Continue furosemide (4) HTN (hypertension) Code(s): I10 - ESSENTIAL (PRIMARY) HYPERTENSION Comment: - Hypertensive - Continue losartan, furosmide; start amlodipine (5) Asthma Code(s): J45.909 - UNSPECIFIED ASTHMA, UNCOMPLICATED Comment: - Continue albuterol, mometasone, Singulair (6) GERD (gastroesophageal reflux disease) Code(s): K21.9 - GASTRO-ESOPHAGEAL REFLUX DISEASE WITHOUT ESOPHAGITIS Comment : - Continue pantoprazole (7) Morbid obesity with body mass index of 70 and over in adult Code(s): E66.01 - MORBID (SEVERE) OBESITY DUE TO EXCESS CALORIES; Z68.45 - BODY MASS INDEX (BMI) 70 OR GREATER, ADULT Comment: - BMI 71 (8) DVT prophylaxis Comment: - Lovenox (9) Full code status Code(s): Z78.9 - OTHER SPECIFIED HEALTH STATUS Comment: Status and Disposition: Inpatient. Awaiting [facility] bed. Attending: Nelida Escobedo
[2019-11-07] MEDS: amLODIPine TAB* 5 MG PO SCH (09:58)
[2019-11-07] MEDS: Enoxaparin(*) 40 MG/0.4 ML SYR SUBCUT SCH (15:58)
[2019-11-07] MEDS: traMADol TAB* 50 MG PO PRN (21:55)
[2019-11-07] MEDS: Acetaminophen TAB* 325 MG PO PRN (22:02)
[2019-11-07] MEDS: Latanoprost 0.005%* 2.5 ml BTL RIGHT EYE SCH (22:03)
[2019-11-08] MEDS: Mometasone 220 MCG MDI INH SCH (07:54)
[2019-11-08] MEDS: Furosemide TAB* 40 MG PO SCH (08:34)
[2019-11-08] MEDS: Ibuprofen TAB* 600 MG PO PRN (08:34)
[2019-11-08] MEDS: Losartan TAB* 25 MG PO SCH ×2 (08:34→21:38)
[2019-11-08] MEDS: Montelukast Sodium TAB* 10 MG PO SCH (08:34)
[2019-11-08] MEDS: amLODIPine TAB* 5 MG PO SCH (08:34)
[2019-11-08] MEDS: medroxyPROGESTERone TAB* 10 MG PO SCH (08:35)
[2019-11-08] MEDS: Potassium Chlor TAB* 10 MEQ TAB.ER PO SCH (08:35)
[2019-11-08] MEDS: Cholecalciferol TAB* 1000 UNITS PO SCH (08:35)
[2019-11-08] MEDS: Fluticasone NASAL SPRAY 50MCG* 16 gm SPRAY BTL BOTH NARES SCH (08:35)
[2019-11-08] MEDS: Pantoprazole TAB * 40 MG TAB PO SCH (08:35)
[2019-11-08] MEDS: Cephalexin CAP* 500 MG PO SCH ×3 (08:35→21:37)
[2019-11-08] MEDS: Nystatin TOP POWDER* 15 GM BTL TOPICAL SCH ×3 (08:37→21:42)
--- NOTE | 2019-11-08 13:52 | PN ---
Subjective Date of Service: 11/08/19 Interval History: Ms. Epstein is not doing well today. She reports having a difficult morning. PT attempted to get her into a ojrdan, and she states that was a very unpleasant and unsuccessful experience. Denies CP, SOB, N/V. Asking for muscle rub cream. No concerns from nursing. Family History: Unchanged from Admission Social History: Unchanged from Admission Past Medical History: Unchanged from Admission Objective Active Medications: Acetaminophen (Tylenol Tab*) 650 mg PO Q6H PRN MILD PAIN or TEMP > 100.4 Albuterol (Ventolin Hfa Inhaler*) 2 puff INH Q6H PRN SOB/WHEEZING Amlodipine Besylate (Norvasc Tab*) 5 mg PO DAILY [facility] Cephalexin HCl (Keflex Cap*) 500 mg PO TID [facility] Cholecalciferol (Vitamin D Tab*) 2,000 units PO DAILY [facility] Enoxaparin Sodium (Lovenox(*)) 40 mg SUBCUT Q24H [facility] Fluticasone Propionate (Flonase Nasal [place] 50mcg*) 1 spray BOTH NARES DAILY [facility] Furosemide (Lasix Tab*) 40 mg PO DAILY [facility] Ibuprofen (Motrin Tab*) 600 mg PO Q8H PRN PAIN - MILD Latanoprost (Xalatan 0.005%*) 1 drop RIGHT EYE BEDTIME [facility] Losartan Potassium (Cozaar Tab*) 50 mg PO DAILY [facility] Losartan Potassium (Cozaar Tab*) 50 mg PO BEDTIME [facility] Medroxyprogesterone Acetate (Provera Tab*) 10 mg PO DAILY [facility] Mometasone Furoate (Asmanex 220 Mcg Mdi *) 1 puff INH DAILY [facility]; Protocol Montelukast Sodium (Singulair Tab*) 10 mg PO DAILY [facility] Nystatin (Nystatin Top Powder*) 1 applic TOPICAL TID [facility] Pantoprazole Sodium (Protonix Tab*) 40 mg PO QAM [facility] Potassium Chloride (Klor Con Er Tab*) 10 meq PO DAILY [facility] Tramadol HCl (Ultram*) 100 mg PO BEDTIME PRN PAIN - MODERATE Vital Signs - 8 hr 11/08/19 11/08/19 07:15 08:00 Temperature 97.3 F Pulse Rate 70 Respiratory 14 20 Rate Blood Pressure 138/88 (mmHg) O2 Sat by Pulse 98 Oximetry Oxygen Devices in Use Now: None Appearance: Middle-aged obese female lying in bed in NAD Ears/Nose/Mouth/Throat: Mucous Membranes Moist Neck: NL Appearance and Movements; NL JVP, Trachea Midline Respiratory: Symmetrical Chest Expansion and Respiratory Effort, Clear to Auscultation Cardiovascular: NL Sounds; No Murmurs; No JVD, RRR Extremities: No Edema Skin: - - Improving erythema to BLE Neurological: Alert and Oriented x 3 Lines/Tubes/Other Access: Clean, Dry and Intact Peripheral IV Nutrition: Taking PO's Result Diagrams: 11/04/19 05:14 11/04/19 05:14 Assess/Plan/Problems-Billing Assessment: Ms. Epstein is a 69 yo F with PMH of HTN, morbid obesity, DM2, asthma, lymphedema, right optic nerve atrophy; who presented to the ED with weakness and a fall at home and was found to have cellulitis. - Patient Problems (1) Lower extremity cellulitis Comment: - RLE wound with surrounding erythema noted on admission; wound is reported to be self-inflicted from digging - Not meeting sepsis criteria - Continue cephalexin (day 03/12) (2) Weakness Code(s): R53.1 - WEAKNESS Comment: - Fall at home on the day of admission - Multifactorial: lymphedema, cellulitis, deconditioning, morbid obesity - PT/OT evals; will need [facility] (3) Lymphedema Code(s): I89.0 - LYMPHEDEMA, NOT ELSEWHERE CLASSIFIED Comment: - Longstanding history of lymphedema; patient reports she has not been taking furosemide for 2 weeks prior to admission - Continue furosemide (4) HTN (hypertension) Code(s): I10 - ESSENTIAL (PRIMARY) HYPERTENSION Comment: - Slightly hypertensive - Continue losartan, furosmide, amlodipine (5) Asthma Code(s): J45.909 - UNSPECIFIED ASTHMA, UNCOMPLICATED Comment: - Continue albuterol, mometasone, Singulair (6) GERD (gastroesophageal reflux disease) Code(s): K21.9 - GASTRO-ESOPHAGEAL REFLUX DISEASE WITHOUT ESOPHAGITIS Comment : - Continue pantoprazole (7) Morbid obesity with body mass index of 70 and over in adult Code(s): E66.01 - MORBID (SEVERE) OBESITY DUE TO EXCESS CALORIES; Z68.45 - BODY MASS INDEX (BMI) 70 OR GREATER, ADULT Comment: - BMI 71 (8) DVT prophylaxis Comment: - Lovenox (9) Full code status Code(s): Z78.9 - OTHER SPECIFIED HEALTH STATUS Comment: Status and Disposition: Inpatient. Awaiting [facility] bed. Attending: Aria Fairbanks
[2019-11-08] MEDS: Enoxaparin(*) 40 MG/0.4 ML SYR SUBCUT SCH (14:35)
[2019-11-08] MEDS: Acetaminophen TAB* 325 MG PO PRN (21:39)
[2019-11-08] MEDS: traMADol TAB* 50 MG PO PRN (21:40)
[2019-11-08] MEDS: Latanoprost 0.005%* 2.5 ml BTL RIGHT EYE SCH (21:42)
[2019-11-08] MEDS: Analgesic BALM* 114 GM TOPICAL SCH (22:20)
[2019-11-08] MEDS: Cetirizine* 10 MG TAB PO PRN (23:23)
[2019-11-09] MEDS: Mometasone 220 MCG MDI INH SCH (08:43)
[2019-11-09] MEDS: Fluticasone NASAL SPRAY 50MCG* 16 gm SPRAY BTL BOTH NARES SCH (10:09)
[2019-11-09] MEDS: medroxyPROGESTERone TAB* 10 MG PO SCH (10:09)
[2019-11-09] MEDS: Nystatin TOP POWDER* 15 GM BTL TOPICAL SCH ×3 (10:09→21:17)
[2019-11-09] MEDS: Montelukast Sodium TAB* 10 MG PO SCH (10:10)
[2019-11-09] MEDS: Ibuprofen TAB* 600 MG PO PRN (10:10)
[2019-11-09] MEDS: Furosemide TAB* 40 MG PO SCH (10:10)
[2019-11-09] MEDS: Potassium Chlor TAB* 10 MEQ TAB.ER PO SCH (10:10)
[2019-11-09] MEDS: Pantoprazole TAB * 40 MG TAB PO SCH (10:11)
[2019-11-09] MEDS: Losartan TAB* 25 MG PO SCH ×2 (10:11→20:40)
[2019-11-09] MEDS: Cholecalciferol TAB* 1000 UNITS PO SCH (10:11)
[2019-11-09] MEDS: Analgesic BALM* 114 GM TOPICAL SCH (10:12)
[2019-11-09] MEDS: amLODIPine TAB* 5 MG PO SCH (10:12)
[2019-11-09] MEDS: Cephalexin CAP* 500 MG PO SCH ×3 (10:12→20:40)
--- NOTE | 2019-11-09 11:15 | PN ---
Subjective Date of Service: 11/09/19 Interval History: Ms. Epstein c/o R thigh pain for "years." She describes the pain as shooting that radiates to back of knee, occasionally to the R ankle. She states that she is feeling well otherwise. She states she has been unable to get up with PT, but has required [place] lifting. Family History: Unchanged from Admission Social History: Unchanged from Admission Past Medical History: Unchanged from Admission Objective Active Medications: Acetaminophen (Tylenol Tab*) 650 mg PO Q6H PRN PRN Reason: MILD PAIN or TEMP > 100.4 Last Admin: 11/08/19 21:39 Dose: 650 mg Albuterol (Ventolin Hfa Inhaler*) 2 puff INH Q6H PRN PRN Reason: SOB/WHEEZING Amlodipine Besylate (Norvasc Tab*) 5 mg PO DAILY [facility] Last Admin: 11/09/19 10:12 Dose: 5 mg Cephalexin HCl (Keflex Cap*) 500 mg PO TID [facility] Stop: 11/09/19 23:00 Last Admin: 11/09/19 10:12 Dose: 500 mg Cetirizine HCl (Zyrtec*) 10 mg PO DAILY PRN PRN Reason: CONGESTION Last Admin: 11/08/19 23:23 Dose: 10 mg Cholecalciferol (Vitamin D Tab*) 2,000 units PO DAILY [facility] Last Admin: 11/09/19 10:11 Dose: 2,000 units Enoxaparin Sodium (Lovenox(*)) 40 mg SUBCUT Q24H [facility] Last Admin: 11/08/19 14:35 Dose: 40 mg Fluticasone Propionate (Flonase Nasal [place] 50mcg*) 1 spray BOTH NARES DAILY [facility] Last Admin: 11/09/19 10:09 Dose: 1 spray Furosemide (Lasix Tab*) 40 mg PO DAILY [facility] Last Admin: 11/09/19 10:10 Dose: 40 mg Ibuprofen (Motrin Tab*) 600 mg PO Q8H PRN PRN Reason: PAIN - MILD Last Admin: 11/09/19 10:10 Dose: 600 mg Latanoprost (Xalatan 0.005%*) 1 drop RIGHT EYE BEDTIME [facility] Last Admin: 11/08/19 21:42 Dose: 1 drop Losartan Potassium (Cozaar Tab*) 50 mg PO DAILY [facility] Last Admin: 11/09/19 10:11 Dose: 50 mg Losartan Potassium (Cozaar Tab*) 50 mg PO BEDTIME [facility] Last Admin: 11/08/19 21:38 Dose: 50 mg Medroxyprogesterone Acetate (Provera Tab*) 10 mg PO DAILY [facility] Last Admin: 11/09/19 10:09 Dose: 10 mg Mometasone Furoate (Asmanex 220 Mcg Mdi *) 1 puff INH DAILY [facility]; Protocol Last Admin: 11/09/19 08:43 Dose: 1 puff Montelukast Sodium (Singulair Tab*) 10 mg PO DAILY [facility] Last Admin: 11/09/19 10:10 Dose: 10 mg Multi-Ingredient Liniment/Rub (Dami [place]*) 1 applic TOPICAL BID [facility] Last Admin: 11/09/19 10:12 Dose: 1 applic Nystatin (Nystatin Top Powder*) 1 applic TOPICAL TID [facility] Last Admin: 11/09/19 10:09 Dose: 1 applic Pantoprazole Sodium (Protonix Tab*) 40 mg PO QAM [facility] Last Admin: 11/09/19 10:11 Dose: 40 mg Potassium Chloride (Klor Con Er Tab*) 10 meq PO DAILY [facility] Last Admin: 11/09/19 10:10 Dose: 10 meq Tramadol HCl (Ultram*) 100 mg PO BEDTIME PRN PRN Reason: PAIN - MODERATE Last Admin: 11/08/19 21:40 Dose: 100 mg Vital Signs: Temp Pulse Resp BP Pulse Ox 98.2 F 61 16 146/64 100 11/09/19 11:15 11/09/19 11:15 11/09/19 11:15 11/09/19 11:15 11/09/19 11:15 Oxygen Devices in Use Now: None Appearance: Ms. Epstein is a morbidly obese 69yof who is sitting a chair. She is breathing comfortably and appears to be in no acute distress. Eyes: No Scleral Icterus, PERRLA Ears/Nose/Mouth/Throat: NL Teeth, Lips, Gums, Clear Oropharnyx, Mucous Membranes Moist Neck: NL Appearance and Movements; NL JVP, Trachea Midline Respiratory: Symmetrical Chest Expansion and Respiratory Effort, Clear to Auscultation - anteriorly Cardiovascular: NL Sounds; No Murmurs; No JVD, RRR Abdominal: NL Sounds; No Tenderness; No Distention, No Hepatosplenomegaly Extremities: No Clubbing, Cyanosis, - - b/l LE lymphedema with associated erythema that has decreased compared with demarcated lines; limited ROM to b/l LE; R lateral thigh with CDI dressing in place, without surrounding erythema Neurological: Alert and Oriented x 3 Result Diagrams: 11/04/19 05:14 11/04/19 05:14 Additional Lab and Data: Lab Results 11/03/19 11/03/19 11/03/19 Range/Units 11:18 11:18 11:18 WBC 11.9 H (3.5-10.8) 10^3/uL RBC 4.40 (3.70-4.87) 10^6 /uL Hgb 13.1 (12.0-16.0) g/dL Hct 38 (35-47) % MCV 87 (80-97) fL MCH 30 (27-31) pg MCHC 34 (31-36) g/dL RDW 14 (10-15) % Plt Count 189 (150-450) 10^3/uL MPV 10.3 (7.4-10.4) fL Neut % (Auto) 84.1 % Lymph % (Auto) 9.2 % [place] % (Auto) 5.4 % Eos % (Auto) 0.8 % Baso % (Auto) 0.5 % Absolute Neuts (auto) 10.1 H (1.5-7.7) 10^3/ul Absolute Lymphs (auto) 1.1 (1.0-4.8) 10^3/ul Absolute Monos (auto) 0.6 (0-0.8) 10^3/ul Absolute Eos (auto) 0.1 (0-0.6) 10^3/ul Absolute Basos (auto) 0.1 (0-0.2) 10^3/ul Absolute Nucleated RBC 0.0 10^3/ul Nucleated RBC % 0.1 Sodium 137 (135-145) mmol/L Potassium 4.1 (3.5-5.0) mmol/L Chloride 103 (101-111) mmol/L Carbon Dioxide 26 (22-32) mmol/L Anion Gap 8 (2-11) mmol/L BUN 24 (6-24) mg/dL Creatinine 0.71 (0.51-0.95) mg/dL Est GFR ( Amer) 99.4 (>60) Est GFR (Non-Af Amer) 82.1 (>60) BUN/Creatinine Ratio 33.8 H (8-20) Glucose 109 H (70-100) mg/dL Lactic Acid 0.5 (0.5-2.0) mmol/L Calcium 9.8 (8.6-10.3) mg/dL Magnesium 2.0 (1.9-2.7) mg/dL Total Bilirubin 0.70 (0.2-1.0) mg/dL AST 16 (13-39) U/L ALT 9 (7-52) U/L Alkaline Phosphatase 64 (34-104) U/L Troponin I 0.02 (<0.03) ng/mL C-Reactive Protein 12.28 H (<8.01) mg/L Total Protein 7.3 (6.4-8.9) g/dL Albumin 4.1 (3.2-5.2) g/dL Globulin 3.2 (2-4) g/dL Albumin/Globulin Ratio 1.3 (1-3) TSH 1.37 (0.34-5.60) mcIU/mL Microbiology and Other Data: Microbiology 11/03/19 17:03 Aerobic Blood Culture - Final Blood Venous No Growth Day 5 Anaerobic Blood Culture - Final No Growth Day 5 11/03/19 17:03 Aerobic Blood Culture - Final Blood Venous No Growth Day 5 Anaerobic Blood Culture - Final No Growth Day 5 Assess/Plan/Problems-Billing Assessment: Ms. Epstein is a 69 yo F with PMH of HTN, morbid obesity, DM2, asthma, lymphedema, right optic nerve atrophy; who presented to the ED with weakness and a fall at home and was found to have cellulitis. - Patient Problems (1) Lower extremity cellulitis Comment: - RLE wound with surrounding erythema noted on admission; wound is reported to be self-inflicted from digging - Not meeting sepsis criteria - Continue cephalexin (day 04/11) (2) Weakness Comment: - Fall at home on the day of admission - Multifactorial: lymphedema, cellulitis, deconditioning, morbid obesity - PT/OT evals; will need [facility] (3) HTN (hypertension) Comment: - SBP 140-160's - Continue losartan, furosemide, amlodipine (4) Lymphedema Comment: - Longstanding history of lymphedema; patient reports she has not been taking furosemide for 2 weeks prior to admission - Continue furosemide (5) Asthma Comment: - Continue albuterol, mometasone, Singulair (6) GERD (gastroesophageal reflux disease) Comment: - Continue pantoprazole (7) Morbid obesity with body mass index of 70 and over in adult Comment: - BMI 71 (8) DVT prophylaxis Comment: - Lovenox Status and Disposition: Inpatient. Awaiting [facility] bed.
[2019-11-09] MEDS: Enoxaparin(*) 40 MG/0.4 ML SYR SUBCUT SCH (16:50)
--- NOTE | 2019-11-09 16:52 | CONSULT ---
Subjective Date of Service: 11/09/19 Interval History: Ms. Epstein is a 69 yo female with PMH significant for DM2, morbid obesity, HTN, allergic rhinitis, asthma, osteoarthritis, lymphedema, right optic nerve atrophy, hypothyroidism; who presented to the emergency room with fall and weakness. She was admitted for right LE cellulitis. Pt presented to the the hospital with a known open area to the right thigh secondary to trauma (scratching caused by the patient). Wound has been present for about 2 weeks. This has been treated with border foam dressing. Patient seen and examined at bedside. Verbal consent obtained for wound consultation and photograph. Family History: Unchanged from Admission Social History: Unchanged from Admission Past Medical History: Unchanged from Admission Review of Systems - Measurements Intake and Output: Intake and Output Last 24 Hours 11/07/19 11/08/19 11/09/19 11/10/19 06:59 06:59 06:59 06:59 Intake Total 1029 1800 1740 720 Balance 1029 1800 1740 720 Intake: IV Fluids 12 NS 12 IVPB 57 ABX - CEFTRIAXONE 57 Oral 960 1800 1740 720 Other: Estimated Void Medium Large Medium # Bowel Movements 0 0 0 Estimated Stool Amount Large # Voids 1 1 6 7 - Review of Systems Constitutional Symptoms: Negative: Fever, Other - Chills Dermatology: Positive: Other - Open area to the right thigh secondary to scratching Objective Active Medications: Acetaminophen (Tylenol Tab*) 650 mg PO Q6H PRN Reason: MILD PAIN or TEMP > 100.4 Albuterol (Ventolin Hfa Inhaler*) 2 puff INH Q6H PRN Reason: SOB/WHEEZING Amlodipine Besylate (Norvasc Tab*) 5 mg PO DAILY [facility] Cephalexin HCl (Keflex Cap*) 500 mg PO TID [facility] Stop: 11/09/19 23:00 Cetirizine HCl (Zyrtec*) 10 mg PO DAILY PRN Reason: CONGESTION Cholecalciferol (Vitamin D Tab*) 2,000 units PO DAILY [facility] Enoxaparin Sodium (Lovenox(*)) 40 mg SUBCUT Q24H [facility] Fluticasone Propionate (Flonase Nasal [place] 50mcg*) 1 spray BOTH NARES DAILY [facility] Furosemide (Lasix Tab*) 40 mg PO DAILY [facility] Ibuprofen (Motrin Tab*) 600 mg PO Q8H PRN Reason: PAIN - MILD Latanoprost (Xalatan 0.005%*) 1 drop RIGHT EYE BEDTIME [facility] Losartan Potassium (Cozaar Tab*) 50 mg PO DAILY [facility] Losartan Potassium (Cozaar Tab*) 50 mg PO BEDTIME [facility] Medroxyprogesterone Acetate (Provera Tab*) 10 mg PO DAILY [facility] Mometasone Furoate (Asmanex 220 Mcg Mdi *) 1 puff INH DAILY [facility]; Protocol Montelukast Sodium (Singulair Tab*) 10 mg PO DAILY [facility] Multi-Ingredient Liniment/Rub (Dami [place]*) 1 applic TOPICAL BID [facility] Nystatin (Nystatin Top Powder*) 1 applic TOPICAL TID [facility] Pantoprazole Sodium (Protonix Tab*) 40 mg PO QAM [facility] Potassium Chloride (Klor Con Er Tab*) 10 meq PO DAILY [facility] Tramadol HCl (Ultram*) 100 mg PO BEDTIME PRN Reason: PAIN - MODERATE Vital Signs 11/09/19 11:15 Temperature 98.2 F Pulse Rate 61 Respiratory 16 Rate Blood Pressure 146/64 (mmHg) O2 Sat by Pulse 100 Oximetry Oxygen Devices in Use Now: None Appearance: NAD, laying in bed Ears/Nose/Mouth/Throat: Mucous Membranes Moist Respiratory: Symmetrical Chest Expansion and Respiratory Effort Skin: - - See skin note below. Mild erythema to bilateral LE near the ankles, the erythema is symmetrical Neurological: Alert and Oriented x 3 Nutrition: Taking PO's Result Diagrams: 11/04/19 05:14 11/04/19 05:14 Additional Lab and Data: Laboratory Tests 11/03/19 11/03/19 11:18 11:18 Hemoglobin A1c 5.3 C-Reactive Protein 12.28 H Total Protein 7.3 Albumin 4.1 Skin Deviation Note - Skin Deviation Findings Right lateral thigh - There is a superficial open area, measures 7.5 cm x 9 cm x 0.1 cm. The wound base is 100% red epithelial tissue. The surrounding skin is intact. There is scant to mild serous drainage. Wound Problem/Plan Assessment: Ms. Epstein is a 69 yo female with PMH significant for DM2, morbid obesity, HTN, allergic rhinitis, asthma, osteoarthritis, lymphedema, right optic nerve atrophy, hypothyroidism; who presented to the emergency room with fall and weakness. She was admitted for right LE cellulitis. Pt presented to the the hospital with a known open area to the right thigh secondary to trauma. 1. Traumatic wound to the right lateral thigh. Recommend washing the area with soap and water. Apply a border foam dressing (i.e. Opifoam) and change every 3 days or as needed for drainage. If there becomes increased drainage, can consider using calcium alginate, followed by a border foam dressing and change every 3 days. 2. Right thigh cellulitis. Completing course of ABX today. 3. DM2. HgA1C was 5.3 during this admission. Maintain good glycemic control to assist with wound healing. 4. Bilateral LE lymphedema. Uses compression pumps at home. 5. Supra morbid obesity. BMI ~ 71. 6. Nutrition. Recommend meeting nutrition requirements to assist with wound healing (Protein 1.2-1.5 grams.kg per day and Calories 30-35 kcal/kg per day). 7. Code Status. Dull Code Status. 8. Disposition. Inpatient, disposition per primary medicine team. TIME SPENT: Time for this wound consultation was 20 minutes and 10 minutes was spent with the patient discussing past medical history; removing dressing; assessing, measuring, and photographing the wound; and reapplying the dressing. Is Patient a Wound Clinic Patient: No Attending: Hoa Garcia
[2019-11-09] MEDS: Acetaminophen TAB* 325 MG PO PRN (20:41)
[2019-11-09] MEDS: Latanoprost 0.005%* 2.5 ml BTL RIGHT EYE SCH (20:41)
[2019-11-09] MEDS: Cetirizine* 10 MG TAB PO PRN (20:42)
[2019-11-09] MEDS: traMADol TAB* 50 MG PO PRN (20:42)
[2019-11-10] MEDS: Analgesic BALM* 114 GM TOPICAL SCH ×2 (04:16→08:58)
[2019-11-10 08:04] VITALS: BP 144/74
[2019-11-10] MEDS: medroxyPROGESTERone TAB* 10 MG PO SCH (08:57)
[2019-11-10] MEDS: Fluticasone NASAL SPRAY 50MCG* 16 gm SPRAY BTL BOTH NARES SCH (08:57)
[2019-11-10] MEDS: Potassium Chlor TAB* 10 MEQ TAB.ER PO SCH (08:58)
[2019-11-10] MEDS: Montelukast Sodium TAB* 10 MG PO SCH (08:58)
[2019-11-10] MEDS: Furosemide TAB* 40 MG PO SCH (08:58)
[2019-11-10] MEDS: Pantoprazole TAB * 40 MG TAB PO SCH (08:58)
[2019-11-10] MEDS: amLODIPine TAB* 5 MG PO SCH (08:58)
[2019-11-10] MEDS: Losartan TAB* 25 MG PO SCH (08:58)
[2019-11-10] MEDS: Cholecalciferol TAB* 1000 UNITS PO SCH (08:58)
[2019-11-10] MEDS: Nystatin TOP POWDER* 15 GM BTL TOPICAL SCH (08:59)
[2019-11-10] MEDS: Mometasone 220 MCG MDI INH SCH (09:00)
[2019-11-10] MEDS: Ibuprofen TAB* 600 MG PO PRN (09:15)
--- NOTE | 2019-11-10 11:40 | DS ---
CC: Dr. Dave Reed * DISCHARGE SUMMARY: DATE OF ADMISSION: 11/03/19 DATE OF DISCHARGE: 11/10/19 PRIMARY CARE PROVIDER: Dave Reed MD. ATTENDING PHYSICIAN: Jaqueline Cosme MD * (dictated by DEREJE Anderson). PRIMARY DIAGNOSES: 1. Right lower extremity cellulitis. 2. Weakness. 3. Fall. SECONDARY DIAGNOSES: 1. Hypertension. 2. Diabetes mellitus type 2, not on medications. Most recent hemoglobin A1c 5.3 on 11/03/19 3. Lymphedema. 4. Morbid obesity. 5. Asthma. 6. Osteoarthritis. 7. Right optic nerve atrophy. 8. Allergic rhinitis. STUDIES WHILE IN THE HOSPITAL: Chest x-ray, impression: "Pulmonary vascular congestion." CONSULTATIONS WHILE IN THE HOSPITAL: Wound care, traumatic wound to right lateral thigh. Wash with soap and water, apply a border foam dressing (i.e., Optifoam) and change very 3 days or as needed for drainage. If there becomes increased drainage, can consider using calcium alginate followed by a border foam dressing. DISCHARGE MEDICATIONS: Home medications: 1. Acetaminophen 500 to 1000 mg p.o. q.4 hours. 2. Albuterol HFA inhaler 2 puff inhalation q.6 hours p.r.n. 3. Cholecalciferol 2000 units p.o. daily. 4. Fluticasone nasal spray 1 spray to both nares daily. 5. Furosemide 40 mg p.o. daily. 6. Ibuprofen 400 mg p.o. q.6 hours p.r.n. 7. Latanoprost 1 drop to the right eye at bedtime. 8. Losartan 50 mg p.o. daily, 25 mg p.o. at bedtime. 9. Medroxyprogesterone tab 10 mg p.o. daily. 10. Mometasone 220 mcg metered dose inhaler 1 puff inhalation daily. 11. Montelukast 10 mg p.o. daily. 12. Omeprazole 40 mg p.o. daily. 13. Potassium chloride 10 mEq p.o. daily with furosemide. 14. Tramadol 100 mg p.o. at bedtime p.r.n. pain. New home medications: 1. Amlodipine 5 mg p.o. daily. 2. Cetirizine 10 mg p.o. daily p.r.n. 3. Nystatin topical powder 1 application topically t.i.d. HISTORY OF PRESENT ILLNESS/HOSPITAL COURSE: Ms. Epstein is a 69-year-old female with a past medical history of hypertension, morbid obesity, lymphedema, diabetes mellitus type 2, well controlled with diet, who presented to the ER on 11/03/19 after a fall at home. For full and complete details, please see the history and physical dictated by Deborah Short NP, but in short, the patient presents with the above symptoms stating she that tried to stand up and walk but was unable to lift her legs and fell over her walker and subsequently could not get up. The patient is admitted for weakness and falls as well as cellulitis. The patient had a noted right lateral thigh area that was excoriated upon admission, reportedly from the patient scratching this area. She was started on ceftriaxone and eventually transitioned to cephalexin p.o. She received 7 days of treatment with antibiotics with great improvement in the wound. A wound consult was ordered and recommendations were made for soapy water washes, border foam dressing with changes every 3 days or more if increased drainage. Upon discharge, the area looks improved. There is still an abraded appearing open area but the surrounding erythema has diminished and only a narrow light pink border remained. The patient reports falls and weakness. She has chronic lymphedema in the bilateral lower extremities which she reports has caused her difficulty with ambulation. She reports that she has not taken her Lasix in approximately 2 weeks. She was started on IV Lasix 40 mg and was eventually transitioned to her oral home dose of Lasix at 40 mg IV. She reports that the lower extremities are improved in terms of swelling and are back to baseline. The patient was noted to be hypertensive upon admission. She was started on her home medications furosemide and losartan. Amlodipine was eventually added with good results and the patient's blood pressures remaining in the systolic 140s to 150s. At the time of discharge, the patient continues to complain of pain in bilateral lower extremities, right greater than left. She states that she has had 7 to 8 years of pain in the right leg that she describes as shooting pain that radiates to the back of the knee. She notes that she feels fine when she is still, but this is worsened when she gets up to walk. She denies headache, dizziness, lightheadedness, chest pain, shortness of breath, cough, fever, chills, abdominal pain, nausea, vomiting, diarrhea, myalgias, or arthralgias. Ms. Epstein is stable for discharge. PHYSICAL EXAMINATION: Vital Signs: Temperature 97.5 oral, heart rate 62, respiratory rate 15, oxygen saturation 96% on room air, blood pressure 144/74. General: Ms. Epstein is well-developed, well-nourished, morbidly obese 69- year- old white female who is sitting up in bed. She appears to be in no acute distress. She is occasionally tearful, but maintains appropriate conversation, she has clear speech. HEENT: PERRL, EOMI. Visual zhang are grossly intact. Sclerae nonicteric without injection. Hearing is grossly intact. Oral mucous membranes are moist. There are no lesions. The pharynx is clear. The tongue is at midline and the palate elevates symmetrically. Cardiovascular: Regular rate and rhythm with S1 and S2 present. No murmurs, rubs, clicks, or gallops. There is no JVD. There is bilateral lower extremity lymphedema. Pulmonary: Symmetrical chest expansion without use of accessory muscles. Clear to auscultation bilaterally anteriorly. No rhonchi, wheeze, or rales. Abdomen: Obese, bowel sounds in all quadrants. Soft and nontender to palpation. Musculoskeletal: Bilateral upper extremities with painless full active range of motion, bilateral lower extremities with decreased range of motion. The patient states that she feels weak and has pain with movement. The lower extremities have lymphedema bilaterally with a band of mild erythema around bilateral lower extremities which is felt to be lymphedema/venostasis. These areas are not warm or increasingly erythematous. Neuro: The patient is awake. She is alert and oriented x3. Cranial nerves II through XII are grossly intact. DISCHARGE PLAN: Ms. Epstein will be discharged to [facility]. CONDITION: Fair. DIET: 1. Heart healthy. 2. ADA/diabetic. ACTIVITY: 1. As tolerated. 2. Continue PT/OT at subacute rehab. MEDICATIONS: As above. WOUND CARE: Right lateral thigh, wash with soap and water, apply border foam dressing such as Optifoam foam and change every 3 days or as needed for drainage. If there becomes increased drainage, can consider using calcium alginate followed by a border foam dressing. EDUCATION: 1. Follow up with provider at [facility] upon arrival. 2. Return to the ER or nearest hospital if you experience any return or worsening of symptoms, chest pain or discomfort, dizziness, lightheadedness, loss of consciousness, high fevers, chills, night sweats, or any other worrisome signs or symptoms. This is a summarized report of a complex medical history and hospital stay. For further details, please see the entire medical record. TIME SPENT: Approximately 35 minutes were spent on this discharge, greater than half that time was spent [id number] with the patient discussing discharge plans and instructions. DEREJE FLOYD [id number]/[facility] #: [id number] FELIZ
== END 2019-11-10 12:45 | DRG 603 ==
LOC: ED 10:57 → MED 15:13 → OBSVTOIN 11-04 12:23
PROVIDERS: ADMIT Internal Medicine; ATTEND Internal Medicine
DX: L03.115 Cellulitis of right lower limb (principal); Z68.45 Body mass index [BMI] 70 or greater, adult; I89.0 Lymphedema, not elsewhere classified; E66.01 Morbid (severe) obesity due to excess calories; E11.9 Type 2 diabetes mellitus without complications; I10 Essential (primary) hypertension; K21.9 Gastro-esophageal reflux disease without esophagitis; J45.909 Unspecified asthma, uncomplicated; M19.90 Unspecified osteoarthritis, unspecified site; S79.921A Unspecified injury of right thigh, initial encounter; W19.XXXA Unspecified fall, initial encounter; H47.20 Unspecified optic atrophy; Z66 Do not resuscitate; B37.2 Candidiasis of skin and nail; R35.0 Frequency of micturition; Z88.1 Allergy status to other antibiotic agents; Y92.009 Unspecified place in unspecified non-institutional (private) residence as the place of occurrence of the external cause; Z79.51 Long term (current) use of inhaled steroids; Z79.899 Other long term (current) drug therapy
CPT/HCPCS: 36415; 71046; 80048; 80053; 83036; 83605; 83735; 84443; 84484; 85025; 86140; 87040; 93005; 94640; 99285; A9270-GY; J0696; J1650; J1940